=== PATIENT | female | born 1960 ===

== ENCOUNTER 2016-11-08 05:00 | Inpatient (IN) | payer OTHER ==
--- NOTE | 2016-11-08 05:38 | ED PDOC ---
HPI: General Adult Time Seen by Provider: 11/08/16 05:15 Chief Complaint (Nursing): Headache Chief Complaint (Provider): left-sided jaw pain History Per: Patient History/Exam Limitations: no limitations Onset/Duration Of Symptoms: Hrs (15) Current Symptoms Are (Timing): Still Present Additional History Per: Patient Additional Complaint(s): 56 y/o female with multiple medical problems presents with left-sided jaw pain x 15 hours. Patient states she was sleeping, and when she yawned she felt a "crack" to left jaw in front of left ear, and since then has had pain to left jaw, with associated swelling. Patient also notes throat pain when swallowing. Denies fever, headache, extremity new extremity numbness/weakness, left ear pain /drainage, cough, congestion, chest pain, shortness of breath, palpitations. Past Medical History Reviewed: Historical Data, Nursing Documentation, Vital Signs Vital Signs: Last Vital Signs Temp 98.5 F 11/12/16 17:00 Pulse 69 11/12/16 17:00 Resp 20 11/12/16 17:00 BP 115/76 11/12/16 17:00 Pulse Ox 99 11/12/16 17:00 - Medical History PMH: Anxiety, Arthritis (knee,neck,fingers), Asthma, Bipolar Disorder, Bronchitis (4x), CAD, CVA, Depression, Gastritis, HTN, Hypercholesterolemia, Hyperlipidemia, Hypothyroidism, Multiple Sclerosis (off meds 1 1/2 yrs), Pneumonia, Schizophrenia, Seizures (off meds 1 1/2 yrs) Denies: HIV, Chronic Kidney Disease - Surgical History Surgical History: CABG (x5 in 10/2015), Coronary Stent (left circumflex), Pacemaker - Family History Family History: States: Unknown Family Hx, CAD, Hypertension - Immunization History Hx Tetanus Toxoid Vaccination: Yes Hx Influenza Vaccination: No Hx Pneumococcal Vaccination: No - Home Medications Home Medications: Ambulatory Orders Medication Instructions Recorded Levothyroxine [Synthroid] 175 mcg PO DAILY 08/13/15 Ferrous Sulfate [Feosol] 325 mg PO DAILY 11/22/15 Atorvastatin [Lipitor] 80 mg PO QPM 12/01/15 Pantoprazole Sodium [Protonix] 40 mg PO DAILY PRN 12/01/15 Famotidine [Pepcid] 20 mg PO DAILY 11/08/16 Lisinopril [Prinivil] 5 mg PO DAILY 11/08/16 Metoprolol Tartrate [Lopressor] 25 mg PO DAILY 11/08/16 Nortriptyline HCl [Pamelor] 25 mg PO DAILY 11/08/16 Potassium Chloride 10 meq PO DAILY 11/08/16 Potassium Chloride [K-Dur 20 mEq 40 meq PO DAILY tab 11/12/16 ER Tab] Warfarin [Coumadin] 4 mg PO QD5 tab 11/12/16 - Allergies Allergies/Adverse Reactions: Allergies Allergy/AdvReac Type Severity Reaction Status Date / Time No Known Allergies Allergy Verified 05/09/16 01:51 Review of Systems ROS Statement: Except As Marked, All Systems Reviewed And Found Negative ENT: Positive for: Mouth Pain (left jaw pain) Physical Exam - Reviewed Nursing Documentation Reviewed: Yes Vital Signs Reviewed: Yes - Physical Exam Appears: Positive for: Well, Non-toxic, Uncomfortable (crying; but speaking in full sentence) Head Exam: Positive for: ATRAUMATIC, NORMAL INSPECTION, NORMOCEPHALIC Skin: Positive for: Normal Color Eye Exam: Positive for: Normal appearance ENT: Positive for: TM Is/Are (clear TM's and EAC's b/l. ), Other (examination of pharynx slightly limited as patient unable to fully open mouth due to pain. Contusion noted to palate. Tender to palpate left mandible with mild swelling noted.). Negative for: Nasal Congestion Cardiovascular/Chest: Positive for: Regular Rate, Rhythm Respiratory: Positive for: Normal Breath Sounds Gastrointestinal/Abdominal: Positive for: Normal Exam Extremity: Positive for: Normal ROM (left-sided weakness (from CVA 04/2016)) Neurologic/Psych: Positive for: Alert, Oriented - Laboratory Results Result Diagrams: 11/12/16 05:25 11/12/16 05:25 - ECG O2 Sat by Pulse Oximetry: 99 - Progress ED Course And Treament: labs, CT mandible with IV contrast, IV morphine ordered Disposition - Clinical Impression Clinical Impression: Mandibular pain - Disposition Disposition: Transfer of Care Disposition Time: 06:00 Condition: STABLE Patient Signed Over To: Gregorio Storm Handoff Comments: pending labs, CT, re-eval
--- NOTE | 2016-11-08 05:55 | ED PDOC ---
- Laboratory Results Result Diagrams: 11/08/16 05:50 11/08/16 05:50 - ECG O2 Sat by Pulse Oximetry: 99 Medical Decision Making Medical Decision Makin Patient signed out to me from MARIUSZ Oneill pending CT and labs. Scribe Attestation: Documented by Jemma Perez acting as a scribe for Gregorio Storm MD. Scribe Attestation: All medical record entries made by the Scribe were at my direction and personally dictated by me. I have reviewed the chart and agree that the record accurately reflects my personal performance of the history, physical exam, medical decision making, and the department course for this patient. I have also personally directed, reviewed, and agree with the discharge instructions and disposition. Disposition - Clinical Impression Clinical Impression: Mandibular pain - POA Present On Arrival: None - Disposition Referrals: Simba Cloud MD [Primary Care Provider] - Disposition: Transfer of Care Disposition Time: 07:00 Patient Signed Over To: José Kumar III Handoff Comments: Pending CT
[2016-11-08 06:23] LABS: BASO % 0.6 % (0.0-2.0); EOS % 0.6 % (0.0-4.0); HEMATOCRIT 39.6 % (34.0-47.0); LYMPH # 1.7 K/uL (1.0-4.3); LYMPH % 22.7 % (20.0-40.0); MEAN CELL VOLUME 89.6 fl (81.0-99.0); MEAN CORPUSCULAR HGB CONC 33.5 g/dL (33.0-37.0); MEAN PLATELET VOLUME 8.7 fl (7.2-11.7); MONO # 0.4 K/uL (0.0-0.8); MONO % 5.4 % (0.0-10.0); NEUT # 5.4 K/uL (1.8-7.0); NEUT % 70.7 % (50.0-75.0); RED CELL DISTRIBUTION WIDTH 13.6 % (11.5-14.5); WHITE BLOOD COUNT 7.6 K/uL (4.8-10.8)
[2016-11-08 06:26] LABS: BLOOD UREA NITROGEN 11 mg/dl (7-17); CALCIUM 10.2 mg/dL (8.4-10.2); CARBON DIOXIDE 26 mmol/L (22-30); CHLORIDE 103 mmol/L (98-107); GFR AFRICAN-AMERICAN > 60; GLUCOSE,RANDOM 137 mg/dL (65-105); POTASSIUM 3.9 MMOL/L (3.6-5.0); SODIUM 140 mmol/l (132-148)
[2016-11-08 06:48] LABS: PARTIAL THROMBOPLASTIN TIME 142.7 Seconds (25.6-37.1)
[2016-11-08] MEDS ORDERED: Dexamethasone 10 MG in Sodium Chloride 0.9% 50 ML IV ONE (06:50)
--- NOTE | 2016-11-08 07:16 | ED PDOC ---
- Laboratory Results Result Diagrams: 11/12/16 05:25 11/12/16 05:25 - ECG O2 Sat by Pulse Oximetry: 99 (RA) Pulse Ox Interpretation: Normal - Critical Care Total Time (In Min): 35 Medical Decision Making Medical Decision Making: Time: 07:00 --Patient was endorsed from Dr. Storm to me. --Pending imagining and disposition. Time: 07:12 --Head CT Scan --Maxillofacial w/ contrast CT Time: 08:57 --Head CT FINDINGS: HEMORRHAGE: No intracranial hemorrhage. BRAIN: There is an encephalomalacia in the right anterior parietal lobe, anterior limb of internal capsule and basal ganglia with Valium loss and ex vacuo dilatation of the right lateral ventricle. There is no mass, mass effect or abnormal extra- axial fluid collection. There is Wallerian degeneration of the right pyramidal tract. VENTRICLES: No hydrocephalus. CALVARIUM: The skull base and calvarium are normal. PARANASAL SINUSES: Mild mucosal thickening in the maxillary sinuses, otherwise predominantly clear. MASTOID AIR CELLS: Predominantly clear. OTHER FINDINGS: None. IMPRESSION: No acute intracranial abnormality. Encephalomalacia in the right anterior parietal lobe, anterior limb of internal capsule and basal ganglia, sequela of remote right MCA territory infarction. Time: 09:25 --Maxillofacial CT FINDINGS: There is enlargement of the palatine and lingual tonsils, worse on the left. There is also abnormal soft tissue in the left peritonsillar space and parapharyngeal space with mass effect on the left lateral pharyngeal wall and mild narrowing of the oropharyngeal airway. Abnormal soft tissue also extends into the left retropharyngeal space and deep parotid space. There is no drainable fluid collection. There is asymmetric enlargement and increased density in the left parotid gland with inflammatory stranding in the surrounding fat. There is also mild asymmetric enlargement and enhancement of the left submandibular gland. There is also asymmetric thickening of the left platysma. There is soft tissue swelling and subcutaneous fat stranding overlying the left parotid gland. The right parotid gland is normal in size, attenuation on appearance. With There is reactive enlargement of the visualized left cervical chain lymph nodes. NASAL BONES: Unremarkable. ORBITS: Both globes are normal in appearance. No intraorbital or retro-orbital abnormality. The bony orbits are normal. PARANASAL SINUSES/ MASTOIDS: There is mild polypoid mucosal thickening in the maxillary sinuses. Otherwise predominantly clear. MAXILLA: Normal in appearance caps. MANDIBLE/ TEMPOROMANDIBULAR JOINTS: Unremarkable. SKULL BASE: Unremarkable. TEMPORAL BONES: Middle ears and mastoid grossly unremarkable. OTHER FINDINGS: None. IMPRESSION: Findings are consistent with left tonsillitis and abnormal soft-tissue/phlegmon in the left peritonsillar, parapharyngeal, left retropharyngeal and left deep parotid space with mass effect on the left lateral pharyngeal wall and mild narrowing of the oropharyngeal airway. No evidence of airway obstruction. No evidence of drainable fluid collection. Also noted is reactive left submandibular and parotid sialoadenitis and left facial cellulitis. Reactive enlargement of the left cervical lymph nodes. Time: :44 --Phytonadione 5 mg IV --Request for consult with Dr. Sharpe. Time: : --Zosyn 4.5 GM IVPB Time: :54 --Admit to hospital routine: Inpatient in telemetry for coumadin toxicity, retropharyngeal bleeding with airway narrowing after consult under the care of Dr. Simba Cloud MD Time: 09:57 --Type and Screen Time: 10:04 --Hematology Oncology consult with Dr. Ciro Laureano MD for coumadin toxicity with possible ENT bleed, rec Vit K and FFP, no KCentra for now. --Otolaryngology consult with Dr. Андрей Sharpe MD for coumadin toxicity with retropharyngeal swelling Time: 10:05 --Frozen Plasma Time: 10:15 --Phytonadione 5 mg IV Scribe Attestation: Documented by Cristin Bee, acting as a scribe for José Kumar MD. Provider Scribe Attestation: All medical record entries made by the Scribe were at my direction and personally dictated by me. I have reviewed the chart and agree that the record accurately reflects my personal performance of the history, physical exam, medical decision making, and the department course for this patient. I have also personally directed, reviewed, and agree with the discharge instructions and disposition. Disposition Counseled Patient/Family Regarding: Studies Performed, Diagnosis - Clinical Impression Clinical Impression: Mandibular pain, Coumadin toxicity, Pharyngeal edema - POA Present On Arrival: None - Disposition Disposition: Admitted as In-Patient (Inpatient/Telemetry) Disposition Time: 09:54 Condition: STABLE
[2016-11-08] MEDS ORDERED: Sodium Chloride 0.9% 50 ML IV ONE (07:41)
[2016-11-08] MEDS ORDERED: Iohexol 300 100 ML IJ ONE (07:42)
--- NOTE | 2016-11-08 08:59 | CT ---
PROCEDURE: CT HEAD WITHOUT CONTRAST. HISTORY: headache, L temporal pain, coumadin toxicity COMPARISON: 05/09/2016. TECHNIQUE: Axial computed tomography images were obtained through the head/brain without intravenous contrast. Radiation dose: Total exam DLP = 885.22 mGy-cm. This CT exam was performed using one or more of the following dose reduction techniques: Automated exposure control, adjustment of the mA and/or kV according to patient size, and/or use of iterative reconstruction technique. FINDINGS: HEMORRHAGE: No intracranial hemorrhage. BRAIN: There is an encephalomalacia in the right anterior parietal lobe, anterior limb of internal capsule and basal ganglia with Valium loss and ex vacuo dilatation of the right lateral ventricle. There is no mass, mass effect or abnormal extra-axial fluid collection. There is Wallerian degeneration of the right pyramidal tract. VENTRICLES: No hydrocephalus. CALVARIUM: The skull base and calvarium are normal. PARANASAL SINUSES: Mild mucosal thickening in the maxillary sinuses, otherwise predominantly clear. MASTOID AIR CELLS: Predominantly clear. OTHER FINDINGS: None. IMPRESSION: No acute intracranial abnormality. Encephalomalacia in the right anterior parietal lobe, anterior limb of internal capsule and basal ganglia, sequela of remote right MCA territory infarction.
--- NOTE | 2016-11-08 09:27 | CT ---
PROCEDURE: CT MAXILLOFACIAL BONES WITH CONTRAST HISTORY: L jaw and facial pain COMPARISON: None. TECHNIQUE: Contiguous axial CT images of the maxillofacial bones were obtained following administration of IV contrast. Coronal and sagittal reformats were generated. Intravenous contrast Dose: 95 mL Omnipaque 300 Radiation dose: Total exam DLP = 838.53 mGy-cm. This CT exam was performed using one or more of the following dose reduction techniques: Automated exposure control, adjustment of the mA and/or kV according to patient size, and/or use of iterative reconstruction technique. FINDINGS: There is enlargement of the palatine and lingual tonsils, worse on the left. There is also abnormal soft tissue in the left peritonsillar space and parapharyngeal space with mass effect on the left lateral pharyngeal wall and mild narrowing of the oropharyngeal airway. Abnormal soft tissue also extends into the left retropharyngeal space and deep parotid space. There is no drainable fluid collection. There is asymmetric enlargement and increased density in the left parotid gland with inflammatory stranding in the surrounding fat. There is also mild asymmetric enlargement and enhancement of the left submandibular gland. There is also asymmetric thickening of the left platysma. There is soft tissue swelling and subcutaneous fat stranding overlying the left parotid gland. The right parotid gland is normal in size, attenuation on appearance. With There is reactive enlargement of the visualized left cervical chain lymph nodes. NASAL BONES: Unremarkable. ORBITS: Both globes are normal in appearance. No intraorbital or retro-orbital abnormality. The bony orbits are normal. PARANASAL SINUSES/ MASTOIDS: There is mild polypoid mucosal thickening in the maxillary sinuses. Otherwise predominantly clear. MAXILLA: Normal in appearance caps. MANDIBLE/ TEMPOROMANDIBULAR JOINTS: Unremarkable. SKULL BASE: Unremarkable. TEMPORAL BONES: Middle ears and mastoid grossly unremarkable. OTHER FINDINGS: None. IMPRESSION: Findings are consistent with left tonsillitis and abnormal soft-tissue/phlegmon in the left peritonsillar, parapharyngeal, left retropharyngeal and left deep parotid space with mass effect on the left lateral pharyngeal wall and mild narrowing of the oropharyngeal airway. No evidence of airway obstruction. No evidence of drainable fluid collection. Also noted is reactive left submandibular and parotid sialoadenitis and left facial cellulitis. Reactive enlargement of the left cervical lymph nodes.
[2016-11-08] MEDS ORDERED: Phytonadione 10 mg/ml Inj (Adult) IV ONE (09:44)
[2016-11-08] MEDS ORDERED: Piperacillin/Tazobact 4.5 GM in Sodium Chloride 0.9% 100 ML IVPB STA (09:52)
[2016-11-08] MEDS ORDERED: Phytonadione 5 MG in Sodium Chloride 0.9% 50 ML IV ONE (10:15)
[2016-11-08] MEDS ORDERED: Pantoprazole 40 mg EC Tab PO PRN (12:02)
--- NOTE | 2016-11-08 12:03 | CP.PCM.HP ---
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 Swelling and pain worsened and this prompted ED visit. She states she did not sustain trauma to the area, no recent dental procedures. Pain is severe /10. She takes 5 mg of Coumadin daily, dose was not changed recently. Last blood work was approximately a month ago in [place]. She has multiple bruises noted on legs, that appeared 2 days ago, denies trauma. She began to cry during the interview with the principal technical writer. Admits she has been crying a lot lately, has loss of appetite, no interest or motivation to do things, suicidal ideations with no plan or intent to do harm herself or others. Previously saw Dr. Denney (psychiatry) but has not taken medication in some time. Patient admits she has been very affected emotionally since her CVA, it has taken her independence and this is causing a great amount of emotional distress. She lives with her who helps her with her daily activities. She used to work and is now unable to do so. Past medical history: HTN, CVA with L hemiplegia, CAD s/p CABG and aortic valve replacement, Bipolar disorder, hypothyroidism Past surgical history: breast lesions removed. benign as per patient, CABG, aortic valve replacement, hysterectomy for fibroids Allergies: NKA Medications: reviewed Present on Admission - Present on Admission Any Indicators Present on Admission: No Review of Systems - Constitutional Constitutional: absent: Chills, Fever - EENT Eyes: absent: Blurred Vision Nose/Mouth/Throat: Facial Pain (left lateral cheek, patient declined inspection of throat due to pain). absent: Nasal Congestion, Nasal Discharge, Nasal Trauma - Breasts Breasts: absent: Mass, Pain, Nipple Discharge - Cardiovascular Cardiovascular: absent: Chest Pain, Dyspnea, Pedal Edema - Respiratory Respiratory: absent: Cough, Dyspnea - Gastrointestinal Gastrointestinal: absent: Abdominal Pain, Diarrhea, Hematemesis, Hematochezia, Melena, Nausea - Genitourinary Genitourinary: absent: Change in Urinary Stream, Difficulty Urinating - Integumentary Integumentary: Swelling (left side of face), Unusual Bruising (bruises noted on right lower extremity ). absent: Dry Skin, Pruritus, Rash, Skin Ulcer - Hematologic/Lymphatic Hematologic: Easy Bruising Past Patient History - Infectious Disease Hx of Infectious Diseases: None - Tetanus Immunizations Tetanus Immunization: Unknown - Past Medical History & Family History Past Medical History?: Yes - Past Social History Smoking Status: Former Smoker - CARDIAC Hx Hypercholesterolemia: Yes Hx Hypertension: Yes Hx Pacemaker: Yes - PULMONARY Hx Asthma: Yes Hx Bronchitis: Yes (4x) Hx Pneumonia: Yes - NEUROLOGICAL Hx Multiple Sclerosis: Yes (off meds 1 1/2 yrs) Hx Seizures: Yes (off meds 1 1/2 yrs) - HEENT Hx HEENT Problems: No - RENAL Hx Chronic Kidney Disease: No - ENDOCRINE/METABOLIC Hx Hypothyroidism: Yes - HEMATOLOGICAL/ONCOLOGICAL Hx Human Immunodeficiency Virus (HIV): No - INTEGUMENTARY Hx Dermatological Problems: (Eczema) - MUSCULOSKELETAL/RHEUMATOLOGICAL Hx Arthritis: Yes (knee,neck,fingers) - GASTROINTESTINAL Hx Gastritis: Yes - GENITOURINARY/GYNECOLOGICAL Hx Genitourinary Disorders: No - PSYCHIATRIC Hx Anxiety: Yes Hx Bipolar Disorder: Yes Hx Depression: Yes Hx Schizophrenia: Yes - SURGICAL HISTORY Hx Coronary Artery Bypass Graft: Yes (x5 in 10/2015) Hx Coronary Stent: Yes (left circumflex) - ANESTHESIA Hx Anesthesia: Yes Hx Anesthesia Reactions: No Hx Malignant Hyperthermia: No Meds Allergies/Adverse Reactions: Allergies Allergy/AdvReac Type Severity Reaction Status Date / Time No Known Allergies Allergy Verified 05/09/16 01:51 Physical Exam - Constitutional Appears: In Acute Distress (secondary to pain, anxious ), Older Than Stated Age - Head Exam Head Exam: NORMOCEPHALIC - Eye Exam Eye Exam: Normal appearance Pupil Exam: NORMAL ACCOMODATION - ENT Exam ENT Exam: Mucous Membranes Moist - Respiratory Exam Respiratory Exam: Clear to Auscultation Bilateral, NORMAL BREATHING PATTERN - Cardiovascular Exam Cardiovascular Exam: REGULAR RHYTHM, +S1, +S2 - GI/Abdominal Exam GI & Abdominal Exam: Normal Bowel Sounds, Soft. absent: Tenderness - Rectal Exam Rectal Exam: Deferred - Neurological Exam Neurological exam: Alert, CN II-XII Intact, Motor Sensory Deficit, Oriented x3 - Psychiatric Exam Psychiatric exam: Anxious, Depressed - Skin Skin Exam: Dry, Intact Additional comments: ecchymosis x 2 on right leg Results - Vital Signs Recent Vital Signs: Last Vital Signs Temp 99 F 11/08/16 05:16 Pulse 77 11/08/16 05:16 Resp 16 11/08/16 05:16 BP 188/82 H 11/08/16 05:16 Pulse Ox 99 11/08/16 10:21 - Labs Result Diagrams: 11/08/16 05:50 11/08/16 05:50 Labs: Laboratory Results - last 24 hr 11/08/16 10:49 Blood Type O POSITIVE Antibody Screen Negative BBK History Checked Patient has bt Assessment & Plan (1) Coumadin toxicity Assessment and Plan: 56 year old female 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 Given Vitamin K in ED. maxillofacial and head CT reviewed by me. Patient is hemodynamically stable, BP improved with administration of home medications. Hematology/Oncology consult: Dr. Laureano,recommendations appreciated. will 2 units of FFP. ENT: Dr. Sharpe, evaluated patient, zosyn given. Patient was evaluated by finance intern. INR 17.9, pending repeat at 16:00 Monitor Coags closely. if remains elevated consider addition doses of FFP, possibly KCentra NPO for now. IVF Status: Acute (2) Coagulopathy Assessment and Plan: secondary to coumadin toxicity -management as above Status: Acute (3) HTN (hypertension) Assessment and Plan: controlled with home medications, hx of cva. -lisinopril 5mg/lopressor 25mg -lipitor 80mg Status: Chronic (4) Hypothyroid Assessment and Plan: c/w home Synthroid 175mg Status: Chronic (5) DVT prophylaxis Assessment and Plan: SCDs, coumadin toxicity Status: Acute <Simab Cloud - Last Filed: 11/09/16 07:05> Results - Vital Signs Recent Vital Signs: Last Vital Signs Temp 98.1 F 11/09/16 04:58 Pulse 56 L 11/09/16 04:58 Resp 18 11/09/16 04:58 BP 103/63 11/09/16 04:58 Pulse Ox 97 11/09/16 04:58 - Labs Result Diagrams: 11/08/16 05:50 11/08/16 05:50 Labs: Laboratory Results - last 24 hr 11/08/16 11/08/16 10:49 18:11 PT 13.6 H D INR 1.3 H D APTT 34.0 D Blood Type O POSITIVE Antibody Screen Negative BBK History Checked Patient has bt Attending/Attestation - Attestation I have personally seen and examined this patient.: Yes I have fully participated in the care of the patient.: Yes I have reviewed all pertinent clinical information: Yes
[2016-11-08] MEDS: Lactated Ringer's 1,000 ML IV SCH (13:31)
--- NOTE | 2016-11-08 14:12 | CP.PCM.CON ---
History of Present Illness - History of Present Illness History of Present Illness: Covering Dr. Beatrice Neal 56 year old female with a history of HTN, CVA, CAD s/p CABG and aortic valve replacement on coumadin, admitted with left facial swelling and pain, found to have couagulopathy secondary for coumadin toxicity and concern for subcutaneous oropharyngeal bleeding. The patient reports to her jaw popping when yawning which led to swelling of the left side of her face and throat. She began to experience worsening swelling and pain which prompted her to come to the ER. In the ER her PT/PTT were prolonged with an INR of 17. She is s/p vit K IV and scheduled to receive 2U FFP. Past medical history: HTN, CVA, CAD s/p CABG and aortic valce replacement. Past surgical history: CABG, aortic valve replacement, hysterectomy for fibroids Family history: Mother had a brain tumor Social history: Smokes 1/2ppd x 40 years, denies alcohol and illicit drug use. Allergies: NKA Review of systems: All remaining review of systems including HEENT, cardiovascular, respiratory, gastrointestinal, genitourinary, musculoskeletal, dermatologic, neurologic, and psychiatric are negative unless mentioned in the HPI. Past Patient History - Infectious Disease Hx of Infectious Diseases: None - Tetanus Immunizations Tetanus Immunization: Unknown - Past Medical History & Family History Past Medical History?: Yes - Past Social History Smoking Status: Former Smoker - CARDIAC Hx Hypercholesterolemia: Yes Hx Hypertension: Yes Hx Pacemaker: Yes - PULMONARY Hx Asthma: Yes Hx Bronchitis: Yes (4x) Hx Pneumonia: Yes - NEUROLOGICAL Hx Multiple Sclerosis: Yes (off meds 1 1/2 yrs) Hx Seizures: Yes (off meds 1 1/2 yrs) - HEENT Hx HEENT Problems: No - RENAL Hx Chronic Kidney Disease: No - ENDOCRINE/METABOLIC Hx Hypothyroidism: Yes - HEMATOLOGICAL/ONCOLOGICAL Hx Human Immunodeficiency Virus (HIV): No - INTEGUMENTARY Hx Dermatological Problems: (Eczema) - MUSCULOSKELETAL/RHEUMATOLOGICAL Hx Arthritis: Yes (knee,neck,fingers) - GASTROINTESTINAL Hx Gastritis: Yes - GENITOURINARY/GYNECOLOGICAL Hx Genitourinary Disorders: No - PSYCHIATRIC Hx Anxiety: Yes Hx Bipolar Disorder: Yes Hx Depression: Yes Hx Schizophrenia: Yes - SURGICAL HISTORY Hx Coronary Artery Bypass Graft: Yes (x5 in 10/2015) Hx Coronary Stent: Yes (left circumflex) - ANESTHESIA Hx Anesthesia: Yes Hx Anesthesia Reactions: No Hx Malignant Hyperthermia: No Meds Allergies/Adverse Reactions: Allergies Allergy/AdvReac Type Severity Reaction Status Date / Time No Known Allergies Allergy Verified 05/09/16 01:51 - Medications Medications: Current Medications Atorvastatin Calcium (Lipitor) 80 mg PO QPM [facility] Famotidine (Pepcid) 20 mg PO DAILY [facility] Ferrous Sulfate (Feosol) 325 mg PO DAILY [facility] Lactated Ringer's (Lactated Ringer's) 1,000 mls @ 80 mls/hr IV .[id number] [facility]LE[facility] Last Admin: 11/08/16 13:31 Dose: 80 mls/hr Levothyroxine Sodium (Synthroid) 175 mcg PO DAILY@0630 [facility] Lisinopril (Zestril) 5 mg PO DAILY [facility] Metoprolol Tartrate (Lopressor) 25 mg PO DAILY [facility] Morphine Sulfate (Morphine) 2 mg IVP Q4 PRN PRN Reason: Pain, severe (8-10) Last Admin: 11/08/16 13:28 Dose: 2 mg Morphine Sulfate (Morphine) 1 mg IVP Q4 PRN PRN Reason: Pain, moderate (4-7) Nortriptyline HCl (Pamelor) 25 mg PO DAILY [facility] Pantoprazole Sodium (Protonix Ec Tab) 40 mg PO DAILY PRN PRN Reason: Heartburn Physical Exam - Head Exam Head Exam: ATRAUMATIC - Eye Exam Eye Exam: Normal appearance - ENT Exam ENT Exam: Mucous Membranes Dry - Neck Exam Additional comments: left sided swelling - Respiratory Exam Respiratory Exam: NORMAL BREATHING PATTERN - Cardiovascular Exam Cardiovascular Exam: +S1, +S2 - GI/Abdominal Exam GI & Abdominal Exam: Normal Bowel Sounds - Extremities Exam Extremities exam: Positive for: normal inspection - Neurological Exam Neurological exam: Oriented x3 - Psychiatric Exam Psychiatric exam: Normal Affect, Normal Mood - Skin Skin Exam: Warm Results - Vital Signs Recent Vital Signs: Last Vital Signs Temp 99.6 F 11/08/16 12:10 Pulse 71 11/08/16 12:10 Resp 18 11/08/16 12:10 BP 171/96 H 11/08/16 12:10 Pulse Ox 97 11/08/16 12:10 - Labs Result Diagrams: 11/08/16 05:50 11/08/16 05:50 Labs: Laboratory Results - last 24 hr 11/08/16 10:49 Blood Type O POSITIVE Antibody Screen Negative BBK History Checked Patient has bt Assessment & Plan (1) Coumadin toxicity Assessment and Plan: with concern for subcutaneous bleeding s/p Vit K IV and to receive 2U FFP coumadin on hold for now but will need to resume anticoagulation given her aortic valve when bleeding resolves; goal INR 2.5-3.5 ENT evaluation Status: Acute (2) Coagulopathy Assessment and Plan: secondary to anticoagulation s/p vit k and FFP Thank you for this interesting consult. Status: Acute
--- NOTE | 2016-11-08 16:00 | CP.CCUPN ---
CCU Subjective - Physician Review Events Since Last Encounter (Free Text): 11/08/16 17:44 The Patient was seen and examined at the bedside, Medical records reviewed, and management issues were discussed and formulated with the house staff. I have reviewed all the relevant clinical, laboratory, hemodynamic, radiographic data and medications I was asked to evaluated for supratherapeutic INR with signs of hemorrhage, 56 Y/O F with PMHx of HTN, HLD, Anxiety, Asthma, Bipolar Disorder, Bronchitis ( 4x), CAD, CVA, Depression, Gastritis, Hypothyroidism, Multiple Sclerosis (off meds 1 1/2 yrs), Pneumonia, Schizophrenia, Seizures (off meds 1 1/2 yrs) and knee/neck/fingers Arthritis Who presented to the ER with left-sided jaw pain x 15 hours. Patient states she was sleeping, and when she yawned she felt a "crack" to left jaw in front of left ear, and since then has had pain to left jaw, with associated swelling. Patient also notes throat pain when swallowing. Denies fever, headache, extremity new extremity numbness/weakness, left ear pain/drainage, cough, congestion, chest pain, shortness of breath, palpitations. She denies any form of bleeding, on examination there is no evidence of active bleeding except Contusion noted to soft palate, spencer to palpate left mandible with mild swelling noted. 11/08/16 17:45 --Head CT Scan --Maxillofacial w/ contrast CT Time: 08:57 --Head CT FINDINGS: HEMORRHAGE: No intracranial hemorrhage. BRAIN: There is an encephalomalacia in the right anterior parietal lobe, anterior limb of internal capsule and basal ganglia with Valium loss and ex vacuo dilatation of the right lateral ventricle. There is no mass, mass effect or abnormal extra- axial fluid collection. There is Wallerian degeneration of the right pyramidal tract. VENTRICLES: No hydrocephalus. CALVARIUM: The skull base and calvarium are normal. PARANASAL SINUSES: Mild mucosal thickening in the maxillary sinuses, otherwise predominantly clear. MASTOID AIR CELLS: Predominantly clear. OTHER FINDINGS: None. IMPRESSION: No acute intracranial abnormality. Encephalomalacia in the right anterior parietal lobe, anterior limb of internal capsule and basal ganglia, sequela of remote right MCA territory infarction. Time: 09:25 --Maxillofacial CT FINDINGS: There is enlargement of the palatine and lingual tonsils, worse on the left. There is also abnormal soft tissue in the left peritonsillar space and parapharyngeal space with mass effect on the left lateral pharyngeal wall and mild narrowing of the oropharyngeal airway. Abnormal soft tissue also extends into the left retropharyngeal space and deep parotid space. There is no drainable fluid collection. There is asymmetric enlargement and increased density in the left parotid gland with inflammatory stranding in the surrounding fat. There is also mild asymmetric enlargement and enhancement of the left submandibular gland. There is also asymmetric thickening of the left platysma. There is soft tissue swelling and subcutaneous fat stranding overlying the left parotid gland. The right parotid gland is normal in size, attenuation on appearance. With There is reactive enlargement of the visualized left cervical chain lymph nodes. NASAL BONES: Unremarkable. ORBITS: Both globes are normal in appearance. No intraorbital or retro-orbital abnormality. The bony orbits are normal. PARANASAL SINUSES/ MASTOIDS: There is mild polypoid mucosal thickening in the maxillary sinuses. Otherwise predominantly clear. MAXILLA: Normal in appearance caps. MANDIBLE/ TEMPOROMANDIBULAR JOINTS: Unremarkable. SKULL BASE: Unremarkable. TEMPORAL BONES: Middle ears and mastoid grossly unremarkable. OTHER FINDINGS: None. IMPRESSION: Findings are consistent with left tonsillitis and abnormal soft-tissue/phlegmon in the left peritonsillar, parapharyngeal, left retropharyngeal and left deep parotid space with mass effect on the left lateral pharyngeal wall and mild narrowing of the oropharyngeal airway. No evidence of airway obstruction. No evidence of drainable fluid collection. Also noted is reactive left submandibular and parotid sialoadenitis and left facial cellulitis. Reactive enlargement of the left cervical lymph nodes. CCU Objective - Vital Signs / Intake & Output Vital Signs (Last 4 hours): Vital Signs Temp Pulse Resp BP Pulse Ox 11/08/16 14:32 71 171/96 H 11/08/16 14:31 71 171/96 H 11/08/16 12:10 99.6 F 71 18 171/96 H 97 - Physical Exam Head: Positive for: Atraumatic, Normocephalic, Tenderness (left mandible ) Pupils: Positive for: PERRL. Negative for: Sluggish, Non-Reactive Extroacular Muscles: Positive for: EOMI. Negative for: Gaze Palsy, Entrapment Conjunctiva: Positive for: Normal. Negative for: Injected, Icteric Ears: Positive for: Normal, NORMAL TM, Normal Canal. Negative for: Erythema Mouth: Positive for: Moist Mucous Membranes, Normal Lips, Normal Tounge, Normal Teeth. Negative for: Drooling, Trismus Pharnyx: Positive for: ERYTHEMA (Contusion noted to soft palate. ). Negative for: EXUDATE, TONSILS ENLARGED, Peritonsilar Swelling, Uvular Deviation, Muffled /Hoarse Voice Nose (External): Positive for: Atraumatic. Negative for: Abrasion, Contusion, Laceration Nose (Internal): Positive for: Normal Inspection, No Active Bleeding Neck: Positive for: Normal Range of Motion, Trachea Midline. Negative for: Meningeal Signs, MIDLINE TENDERNESS, Paraspinal Tenderness, JVD, Lymphadenopathy , Bruit, Other Respiratory/Chest: Positive for: Clear to Auscultation, Good Air Exchange. Negative for: Respiratory Distress, Accessory Muscle Use Cardiovascular: Positive for: Regular Rate and Rhythm. Negative for: Murmurs, Normal S1, S2 Abdomen: Positive for: Normal Bowel Sounds. Negative for: Tenderness, Distention, Peritoneal Signs Neurological: Positive for: GCS=15, CN II-XII Intact, Normal Sensory Function Psychiatric: Positive for: Alert, Oriented x 3, Normal Insight, Normal Concentration, Normal Affect, Normal Mood - Medications Active Medications: Active Medications Generic Name Dose Route Start Last Admin Trade Name Freq PRN Reason Stop Dose Admin Atorvastatin Calcium 80 mg 11/09/16 18:00 Lipitor PO QPM [facility]LEEN Famotidine 20 mg 11/09/16 09:00 Pepcid PO DAILY [facility] Ferrous Sulfate 325 mg 11/09/16 09:00 Feosol PO DAILY [facility] Lactated Ringer's 1,000 mls @ 80 mls/hr 11/08/16 12:15 11/08/16 13:31 Lactated Ringer's IV 80 mls/hr .[id number] KATHLEEN Administration Levothyroxine Sodium 175 mcg 11/09/16 06:30 Synthroid PO DAILY@0630 [facility] Lisinopril 5 mg 11/08/16 14:08 11/08/16 14:32 Zestril PO 5 mg DAILY [facility] Administration Metoprolol Tartrate 25 mg 11/08/16 14:08 11/08/16 14:31 Lopressor PO 25 mg DAILY [facility] Administration Morphine Sulfate 2 mg 11/08/16 13:14 11/08/16 13:28 Morphine IVP 2 mg Q4 PRN Administration Pain, severe (8-10) Morphine Sulfate 1 mg 11/08/16 13:14 Morphine IVP Q4 PRN Pain, moderate (4-7) Nortriptyline HCl 25 mg 11/09/16 09:00 Pamelor PO DAILY [facility] Pantoprazole Sodium 40 mg 11/08/16 12:02 Protonix Ec Tab PO DAILY PRN Heartburn - Patient Studies Lab Studies: Lab Studies 11/08/16 Range/Units 10:49 Blood Type O POSITIVE Antibody Screen Negative BBK History Checked Patient has bt Laboratory Results - last 24 hr 11/08/16 10:49 Blood Type O POSITIVE Antibody Screen Negative BBK History Checked Patient has bt Review of Systems - Cardiovascular Cardiovascular: absent: As Per HPI, Acrocyanosis, Chest Pain, Chest Pain at Rest , Chest Pain with Activity, Claudication, Diaphoresis, Dyspnea, Dyspnea on Exertion, Edema, Irregular Heart Rhythm, Pain Radiating to Arm/Neck/Jaw, Leg Edema, Leg Ulcers, Lightheadedness, Orthopnea, Palpitations, Paroxysmal Nocturnal Dyspnea, Pedal Edema, Radiating Pain, Rapid Heart Rate, Slow Heart Rate, Syncope, Other, UNREMARKABLE - Respiratory Respiratory: absent: As Per HPI, Cough, Dyspnea, Hemoptysis, Dyspnea on Exertion , Wheezing, Snoring, Stridor, Pain on Inspiration, Chest Congestion, Excessive Mucous Production, Change in Mucous Color, Pain with Coughing, Other, UNREMARKABLE - Gastrointestinal Gastrointestinal: absent: As Per HPI, Abdominal Pain, Belching, Bloating, Change in Bowel Habits, Change in Stool Character, Coffee Ground Emesis, Constipation, Cramping, Diarrhea, Dyspepsia, Dysphagia, Early Satiety, Excessive Flatus, Fecal Incontinence, Heartburn, Hematemesis, Hematochezia, Loose Stools, Melena, Nausea, Odynophagia, Temesmus, Vomiting, Other, UNREMARKABLE Critical Care Progress Note - Extremities/Vascular Does the Patient have a Central Venous Catheter?: No Does the Patient need a Central Venous Catheter?: No Does the Patient have a Khalil Catheter?: No Does the Patient need a Khalil Catheter?: No - Nutrition Nutrition: Nutrition Category Date Time Status NPO Diet [DIET] Diets 11/08/16 Breakfast Active Assessment/Plan - Assessment and Plan (Free Text) Assessment: ICU evaluation for supratherapeutic INR Pt denies any form of bleeding, on examination there is no evidence of active bleeding except Contusion noted to soft palate, spencer to palpate left mandible with mild swelling noted. May admit to the telemetry Pt received Vit K and scheduled to receive FFP. At this time, patient is hemodynamic and respiratory status stable, airway patent with not compromise. Please get ENT consult for laryngoscopy and hematology evaluation Repeat Coagulation profile Please call ICU if any change in respiratory or hemodynamic changes, further increase of INR or any acute bleeding devolops
--- NOTE | 2016-11-08 16:52 | OP ---
PROCEDURE DATE: 11/08/2016 PREOPERATIVE DIAGNOSIS: Possible airway obstruction. POSTOPERATIVE DIAGNOSIS: Possible airway obstruction. PROCEDURE: Flexible laryngoscopy. SURGEON: Андрей Sharpe MD SIGNIFICANT FINDINGS: Fullness of the pharynx on the left. DESCRIPTION OF PROCEDURE: The patient was placed in seated position. A flexible laryngoscope was inserted into the nasal cavity, past the nasopharynx, oropharynx, and hypopharynx. The pharyngeal wall, base of tongue, vallecula, epiglottis, AE fold, false cords, true cords, and pyriform sinuses were brought into view. There was some fullness of the left pharyngeal wall. No airway obstruction. Vocal cords were mobile bilaterally. The scope was removed. The patient tolerated the procedure well. Андрей Sharpe MD MTDD
--- NOTE | 2016-11-08 20:02 | CP.PCM.PCO ---
<Shaheed Ryder - Last Filed: 11/08/16 20:00> Assessment and Plan - Assessment and Plan (Free Text) Assessment: called RN after vieweing latest INR 1.3. HOLD second unit FFP due to INR 1.3, patient needs target INR between 2.5-3.5 per heme/onc Britni PGY3 <María Joseph - Last Filed: 11/09/16 08:36> Physician Communication Note - Physician Communication Note Physician Communication Note: COMMUNICATION REVIEWED. WILL HOLD SECOND UNIT OF FFP WITH IMPROVED INR 1.3
[2016-11-09] MEDS: Lactated Ringer's 1,000 ML IV SCH ×2 (05:27→13:23)
[2016-11-09] MEDS: Levothyroxine 175 MCG TAB PO SCH (05:35)
[2016-11-09 06:58] LABS: ALB/GLOB RATIO 1.3 (1.0-2.1); ALKALINE PHOSPHATASE 78 U/L (38-126); ALT/SGPT 41 U/L (9-52); AST/SGOT 20 U/L (14-36); BILIRUBIN,TOTAL 0.9 mg/dl (0.2-1.3); BLOOD UREA NITROGEN 11 mg/dl (7-17); CARBON DIOXIDE 25 mmol/L (22-30); CHLORIDE 106 mmol/L (98-107); GFR AFRICAN-AMERICAN > 60; GLUCOSE,RANDOM 97 mg/dL (65-105); POTASSIUM 3.5 MMOL/L (3.6-5.0); SODIUM 142 mmol/l (132-148); TOTAL PROTEIN 6.6 G/DL (6.3-8.2)
[2016-11-09 07:05] LABS: PARTIAL THROMBOPLASTIN TIME 28.4 Seconds (25.6-37.1)
[2016-11-09 07:06] LABS: HEMATOCRIT 31.5 % (34.0-47.0); MEAN CELL VOLUME 89.6 fl (81.0-99.0); MEAN CORPUSCULAR HEMOGLOBIN 29.9 pg (27.0-31.0); MEAN CORPUSCULAR HGB CONC 33.4 g/dL (33.0-37.0); RED CELL DISTRIBUTION WIDTH 13.6 % (11.5-14.5); WHITE BLOOD COUNT 7.6 K/uL (4.8-10.8)
--- NOTE | 2016-11-09 08:50 | CP.PCM.PN ---
<Eduardo Perez - Last Filed: 11/09/16 13:22> Subjective - Date & Time of Evaluation Date of Evaluation: 11/09/16 Time of Evaluation: 07:15 - Subjective Subjective: Overnight events: INR 1.3. second unit of ffp held. Patient seen and examined bedside with Dr. Ellison. Patient still complaining of pain. She has new ecchymosis on left mandible. NPO until swallow eval. No other complaints offered. Continue IVF until clear for PO diet. Pain control with morphine prn. Case d/w Dr. Laureano, will restart anticoagulation with heparin now, monitor coags. Psychiatry to evaluate patient as well. Objective - Vital Signs/Intake and Output Vital Signs (last 24 hours): Temp Pulse Resp BP Pulse Ox 98.1 F 56 L 18 103/63 97 11/09/16 04:58 11/09/16 04:58 11/09/16 04:58 11/09/16 04:58 11/09/16 04:58 Intake and Output: 11/09/16 11/09/16 06:59 18:59 Intake Total 750 Balance 750 - Medications Medications: Current Medications Atorvastatin Calcium (Lipitor) 80 mg PO QPM [facility] Famotidine (Pepcid) 20 mg PO DAILY [facility] Ferrous Sulfate (Feosol) 325 mg PO DAILY [facility] Lactated Ringer's (Lactated Ringer's) 1,000 mls @ 80 mls/hr IV .[id number] [facility] Last Admin: 11/09/16 05:27 Dose: 80 mls/hr Levothyroxine Sodium (Synthroid) 175 mcg PO DAILY@0630 [facility] Last Admin: 11/09/16 05:35 Dose: 175 mcg Lisinopril (Zestril) 5 mg PO DAILY [facility] Last Admin: 11/08/16 14:32 Dose: 5 mg Metoprolol Tartrate (Lopressor) 25 mg PO DAILY [facility] Last Admin: 11/08/16 14:31 Dose: 25 mg Morphine Sulfate (Morphine) 2 mg IVP Q4 PRN PRN Reason: Pain, severe (8-10) Last Admin: 11/09/16 05:21 Dose: 2 mg Morphine Sulfate (Morphine) 1 mg IVP Q4 PRN PRN Reason: Pain, moderate (4-7) Nortriptyline HCl (Pamelor) 25 mg PO DAILY [facility] Pantoprazole Sodium (Protonix Ec Tab) 40 mg PO DAILY PRN PRN Reason: Heartburn - Labs Labs: 11/09/16 05:40 11/09/16 05:40 PT 12.2 Seconds (9.8-13.1) 11/09/16 05:40 INR 1.2 (0.9-1.2) 11/09/16 05:40 APTT 28.4 Seconds (25.6-37.1) D 11/09/16 05:40 - Constitutional Appears: No Acute Distress - Head Exam Head Exam: NORMOCEPHALIC - Eye Exam Eye Exam: Normal appearance Pupil Exam: NORMAL ACCOMODATION - ENT Exam ENT Exam: Mucous Membranes Moist Additional comments: pain with opening of jaw, tenderness to palpation of left TMJ, ecchymosis noted on left mandible - Respiratory Exam Respiratory Exam: NORMAL BREATHING PATTERN. absent: Respiratory Distress - Cardiovascular Exam Cardiovascular Exam: +S1, +S2 - GI/Abdominal Exam GI & Abdominal Exam: Soft, Normal Bowel Sounds. absent: Tenderness - Extremities Exam Extremities Exam: absent: Pedal Edema, Tenderness - Neurological Exam Neurological Exam: Alert, Awake, Oriented x3 Neuro motor strength exam: Left Upper Extremity: 5, Left Lower Extremity: 0, Right Lower Extremity: 5 - Psychiatric Exam Psychiatric exam: Depressed - Skin Skin Exam: Dry, Intact Additional comments: ecchymosis of rle: appear same as yesterday. Assessment and Plan (1) Coagulopathy Assessment & Plan: secondary to coumadin toxicity, resolved. resume anticoag with heparin now with subtherapeutic INR Status: Acute (3) HTN (hypertension) Assessment & Plan: controlled with home medications, hx of cva. -lisinopril 5mg/lopressor 25mg -lipitor 80mg Status: Chronic (4) Hypothyroid Assessment & Plan: c/w home Synthroid 175mg Status: Chronic (6) Psychiatric diagnosis Assessment & Plan: patient reports hx of bipolar disorder, currently depressed. psych consult for evaluation Status: Acute (7) DVT prophylaxis Assessment & Plan: SCDs, start heparin Status: Acute <Simba Ellison - Last Filed: 11/14/16 07:02> Objective - Vital Signs/Intake and Output Vital Signs (last 24 hours): Temp Pulse Resp BP Pulse Ox 98.5 F 69 20 115/76 99 11/12/16 17:00 11/12/16 17:00 11/12/16 17:00 11/12/16 17:00 11/12/16 20:55 - Labs Labs: 11/12/16 05:25 11/12/16 05:25 PT 13.8 Seconds (9.8-13.1) H 11/12/16 05:25 INR 1.3 (0.9-1.2) H 11/12/16 05:25 APTT 41.9 Seconds (25.6-37.1) H D 11/10/16 06:00 Attending/Attestation - Attestation I have personally seen and examined this patient.: Yes I have fully participated in the care of the patient.: Yes I have reviewed all pertinent clinical information, including history, physical exam and plan: Yes
--- NOTE | 2016-11-09 11:00 | CP.PCM.PN ---
Subjective - Date & Time of Evaluation Date of Evaluation: 11/09/16 Time of Evaluation: 10:00 - Subjective Subjective: Has jaw/throat pain INR noted 1.2 Objective - Vital Signs/Intake and Output Vital Signs (last 24 hours): Temp Pulse Resp BP Pulse Ox 98.1 F 54 L 18 117/71 97 11/09/16 04:58 11/09/16 09:38 11/09/16 04:58 11/09/16 09:38 11/09/16 04:58 Intake and Output: 11/09/16 11/09/16 06:59 18:59 Intake Total 750 Balance 750 - Medications Medications: Current Medications Atorvastatin Calcium (Lipitor) 80 mg PO QPM [facility] Famotidine (Pepcid) 20 mg PO DAILY [facility] Last Admin: 11/09/16 09:37 Dose: 20 mg Ferrous Sulfate (Feosol) 325 mg PO DAILY [facility] Last Admin: 11/09/16 09:35 Dose: 325 mg Lactated Ringer's (Lactated Ringer's) 1,000 mls @ 80 mls/hr IV .[id number] [facility] Last Admin: 11/09/16 05:27 Dose: 80 mls/hr Levothyroxine Sodium (Synthroid) 175 mcg PO DAILY@0630 [facility] Last Admin: 11/09/16 05:35 Dose: 175 mcg Lisinopril (Zestril) 5 mg PO DAILY [facility] Last Admin: 11/09/16 09:38 Dose: 5 mg Metoprolol Tartrate (Lopressor) 25 mg PO DAILY [facility] Last Admin: 11/09/16 09:36 Dose: Not Given Morphine Sulfate (Morphine) 2 mg IVP Q4 PRN PRN Reason: Pain, severe (8-10) Last Admin: 11/09/16 05:21 Dose: 2 mg Morphine Sulfate (Morphine) 1 mg IVP Q4 PRN PRN Reason: Pain, moderate (4-7) Nortriptyline HCl (Pamelor) 25 mg PO DAILY [facility] Last Admin: 11/09/16 09:37 Dose: 25 mg Pantoprazole Sodium (Protonix Ec Tab) 40 mg PO DAILY PRN PRN Reason: Heartburn - Labs Labs: 11/09/16 05:40 11/09/16 05:40 PT 12.2 Seconds (9.8-13.1) 11/09/16 05:40 INR 1.2 (0.9-1.2) 11/09/16 05:40 APTT 28.4 Seconds (25.6-37.1) D 11/09/16 05:40 - Head Exam Head Exam: ATRAUMATIC - Eye Exam Eye Exam: Normal appearance - ENT Exam ENT Exam: Mucous Membranes Dry - Respiratory Exam Respiratory Exam: NORMAL BREATHING PATTERN - Cardiovascular Exam Cardiovascular Exam: +S1, +S2 - GI/Abdominal Exam GI & Abdominal Exam: Normal Bowel Sounds - Extremities Exam Extremities Exam: Normal Inspection - Neurological Exam Neurological Exam: Oriented x3 - Psychiatric Exam Psychiatric exam: Normal Affect, Normal Mood - Skin Skin Exam: Warm Assessment and Plan (1) Coumadin toxicity Assessment & Plan: resolved with Vit K and 1 unit FFP Okay to resume anticoagulation but will need close monitoring Recommend heparin/lovenox bridging with coumadin goal INR 2.5-3.5 Status: Acute (2) Coagulopathy Assessment & Plan: secondary to anticoagulation Status: Acute
[2016-11-09 12:18] VITALS: BMI 30.2
--- NOTE | 2016-11-09 13:42 | CP.PCM.CON ---
History of Present Illness - History of Present Illness History of Present Illness: psychiatry consult ordered by dr. trveizo reason depression cc: i'm depressed hpi: pt tearful throughout interview. she is here for medical complications and has history of a CVA. she reports she has a dx of bipolar disorder and has been off meds for years. able to name lithium, zoloft and seroquel as previous medications. reports previous admissions to psych hospital and previous overdose attempts. reports low mood, decreased energy, anhedonia, hopelessness, crying spells, poor concentration and impairment in attempting to sleep. she reports symptoms are worsening and she is now having passive suicidal thoughts- she has not formulated a plan and she denies intent. she denies psychotic symptoms currently, but has history of hearing voices. she is a poor historian secondary to her mood symptoms and is crying throughout the entire interview. she is willing to sign into a psychiatric unit to restart her meds and to keep her safe. past psych: as above- dx of bipolar. had seen dr. mosley in the past. social: states she lives with . reports medical stressors. abuse: unable to gather history due to lack of privacy substance abuse denies Past medical history: HTN, CVA with L hemiplegia, CAD s/p CABG and aortic valve replacement, Bipolar disorder, hypothyroidism Past surgical history: breast lesions removed. benign as per patient, CABG, aortic valve replacement, hysterectomy for fibroids mse: alert, oriented x 3. mood is depressed. affect is constricted and tearful. thoughts are organized. speech is soft. pt has suicidal thoughts, no plan and no intent. she denies any delusional thoughts and has no c/o a/v hallucinations. fair i/j. memory appears to be grossly intact. assessment: bipolar disorder, mre depressed recommendation: can sign into the step unit (based on her hx of cva and other medical needs) for treatment of her bipolar disorder when she is medically stabilized start seroquel 25mg hs tonight pt states she feels safe in the hospital and 1:1 for suicide prevention not indicated Past Patient History - Infectious Disease Hx of Infectious Diseases: None - Tetanus Immunizations Tetanus Immunization: Unknown - Past Medical History & Family History Past Medical History?: Yes - Past Social History Smoking Status: Former Smoker - CARDIAC Hx Hypercholesterolemia: Yes Hx Hypertension: Yes Hx Pacemaker: Yes - PULMONARY Hx Asthma: Yes Hx Bronchitis: Yes (4x) Hx Pneumonia: Yes - NEUROLOGICAL Hx Multiple Sclerosis: Yes (off meds 1 1/2 yrs) Hx Seizures: Yes (off meds 1 1/2 yrs) - HEENT Hx HEENT Problems: No - RENAL Hx Chronic Kidney Disease: No - ENDOCRINE/METABOLIC Hx Hypothyroidism: Yes - HEMATOLOGICAL/ONCOLOGICAL Hx Human Immunodeficiency Virus (HIV): No - INTEGUMENTARY Hx Dermatological Problems: (Eczema) - MUSCULOSKELETAL/RHEUMATOLOGICAL Hx Arthritis: Yes (knee,neck,fingers) - GASTROINTESTINAL Hx Gastritis: Yes - GENITOURINARY/GYNECOLOGICAL Hx Genitourinary Disorders: No - PSYCHIATRIC Hx Anxiety: Yes Hx Bipolar Disorder: Yes Hx Depression: Yes Hx Schizophrenia: Yes - SURGICAL HISTORY Hx Coronary Artery Bypass Graft: Yes (x5 in 10/2015) Hx Coronary Stent: Yes (left circumflex) - ANESTHESIA Hx Anesthesia: Yes Hx Anesthesia Reactions: No Hx Malignant Hyperthermia: No Meds Allergies/Adverse Reactions: Allergies Allergy/AdvReac Type Severity Reaction Status Date / Time No Known Allergies Allergy Verified 05/09/16 01:51 - Medications Medications: Current Medications Atorvastatin Calcium (Lipitor) 80 mg PO QPM [facility] Famotidine (Pepcid) 20 mg PO DAILY [facility] Last Admin: 11/09/16 09:37 Dose: 20 mg Ferrous Sulfate (Feosol) 325 mg PO DAILY [facility] Last Admin: 11/09/16 09:35 Dose: 325 mg Heparin Sodium (Porcine) (Heparin) 5,000 units SC Q8 [facility] PRN Reason: Protocol Lactated Ringer's (Lactated Ringer's) 1,000 mls @ 80 mls/hr IV .[id number] [facility] Last Admin: 11/09/16 13:23 Dose: 80 mls/hr Levothyroxine Sodium (Synthroid) 175 mcg PO DAILY@0630 [facility] Last Admin: 11/09/16 05:35 Dose: 175 mcg Lisinopril (Zestril) 5 mg PO DAILY [facility] Last Admin: 11/09/16 09:38 Dose: 5 mg Metoprolol Tartrate (Lopressor) 25 mg PO DAILY [facility] Last Admin: 11/09/16 09:36 Dose: Not Given Morphine Sulfate (Morphine) 2 mg IVP Q4 PRN PRN Reason: Pain, severe (8-10) Last Admin: 11/09/16 13:24 Dose: 2 mg Morphine Sulfate (Morphine) 1 mg IVP Q4 PRN PRN Reason: Pain, moderate (4-7) Nortriptyline HCl (Pamelor) 25 mg PO DAILY [facility] Last Admin: 11/09/16 09:37 Dose: 25 mg Pantoprazole Sodium (Protonix Ec Tab) 40 mg PO DAILY PRN PRN Reason: Heartburn Results - Vital Signs Recent Vital Signs: Last Vital Signs Temp 98.1 F 11/09/16 12:00 Pulse 52 L 11/09/16 12:00 Resp 18 11/09/16 12:00 BP 113/67 11/09/16 12:00 Pulse Ox 99 11/09/16 12:00 - Labs Result Diagrams: 11/09/16 05:40 11/09/16 05:40 Labs: Laboratory Results - last 24 hr 11/08/16 11/09/16 11/09/16 18:11 05:40 05:40 WBC 7.6 RBC 3.52 L Hgb 10.5 L D Hct 31.5 L MCV 89.6 MCH 29.9 MCHC 33.4 RDW 13.6 Plt Count 185 PT 13.6 H D 12.2 INR 1.3 H D 1.2 APTT 34.0 D 28.4 D Sodium Potassium Chloride Carbon Dioxide Anion Gap BUN Creatinine Est GFR ( Amer) Est GFR (Non-Af Amer) Random Glucose Calcium Total Bilirubin AST ALT Alkaline Phosphatase Total Protein Albumin Globulin Albumin/Globulin Ratio 11/09/16 05:40 WBC RBC Hgb Hct MCV MCH MCHC RDW Plt Count PT INR APTT Sodium 142 Potassium 3.5 L Chloride 106 Carbon Dioxide 25 Anion Gap 15 BUN 11 Creatinine 0.4 L Est GFR ( Amer) > 60 Est GFR (Non-Af Amer) > 60 Random Glucose 97 Calcium 10.0 Total Bilirubin 0.9 AST 20 ALT 41 Alkaline Phosphatase 78 Total Protein 6.6 Albumin 3.8 Globulin 2.9 Albumin/Globulin Ratio 1.3
[2016-11-09] MEDS: Enoxaparin 80 mg Syringe SC SCH (22:19)
[2016-11-10] MEDS: Levothyroxine 175 MCG TAB PO SCH (06:28)
[2016-11-10 07:50] LABS: MEAN CELL VOLUME 88.8 fl (81.0-99.0); MEAN CORPUSCULAR HEMOGLOBIN 30.7 pg (27.0-31.0); MEAN CORPUSCULAR HGB CONC 34.5 g/dL (33.0-37.0); RED CELL DISTRIBUTION WIDTH 13.5 % (11.5-14.5); WHITE BLOOD COUNT 5.7 K/uL (4.8-10.8)
[2016-11-10 07:58] LABS: PARTIAL THROMBOPLASTIN TIME 41.9 Seconds (25.6-37.1)
[2016-11-10 09:12] LABS: BLOOD UREA NITROGEN 10 mg/dl (7-17); CARBON DIOXIDE 27 mmol/L (22-30); CHLORIDE 105 mmol/L (98-107); GFR AFRICAN-AMERICAN > 60; GLUCOSE,RANDOM 101 mg/dL (65-105); POTASSIUM 3.2 MMOL/L (3.6-5.0); SODIUM 140 mmol/l (132-148)
[2016-11-10] MEDS: Enoxaparin 80 mg Syringe SC SCH ×2 (09:38→20:44)
--- NOTE | 2016-11-10 11:06 | CP.PCM.PN ---
<Eduardo Perez - Last Filed: 11/10/16 11:13> Subjective - Date & Time of Evaluation Date of Evaluation: 11/10/16 Time of Evaluation: 11:01 - Subjective Subjective: No acute overnight events. Patient seen and examined bedside with FM team. Feels better, continues to have pain and swelling but is improving. She is having difficulty opening her jaw due to pain. Will start soft diet and advance as tolerated. Psych input appreciated. Continue with present management. Patient is candidate for STEP unit. Will medically optimize before transfer. Objective - Vital Signs/Intake and Output Vital Signs (last 24 hours): Temp Pulse Resp BP Pulse Ox 98.3 F 56 L 20 113/65 96 11/10/16 08:00 11/10/16 10:41 11/10/16 08:00 11/10/16 10:41 11/10/16 08:00 Intake and Output: 11/10/16 11/10/16 06:59 18:59 Intake Total 1400 Output Total 0 Balance 1400 - Medications Medications: Current Medications Atorvastatin Calcium (Lipitor) 80 mg PO QPM [facility] Last Admin: 11/09/16 18:56 Dose: 80 mg Enoxaparin Sodium (Lovenox) 70 mg SC Q12 [facility] PRN Reason: Protocol Last Admin: 11/10/16 09:38 Dose: 70 mg Famotidine (Pepcid) 20 mg PO DAILY [facility] Last Admin: 11/10/16 10:39 Dose: 20 mg Ferrous Sulfate (Feosol) 325 mg PO DAILY [facility] Last Admin: 11/10/16 09:39 Dose: 325 mg Lactated Ringer's (Lactated Ringer's) 1,000 mls @ 80 mls/hr IV .[id number] [facility] Last Admin: 11/09/16 13:23 Dose: 80 mls/hr Levothyroxine Sodium (Synthroid) 175 mcg PO DAILY@0630 [facility] Last Admin: 11/10/16 06:28 Dose: 175 mcg Lisinopril (Zestril) 5 mg PO DAILY [facility] Last Admin: 11/10/16 09:42 Dose: 5 mg Metoprolol Tartrate (Lopressor) 25 mg PO DAILY [facility] Last Admin: 11/10/16 10:41 Dose: Not Given Morphine Sulfate (Morphine) 2 mg IVP Q4 PRN PRN Reason: Pain, severe (8-10) Last Admin: 11/10/16 04:58 Dose: 2 mg Morphine Sulfate (Morphine) 1 mg IVP Q4 PRN PRN Reason: Pain, moderate (4-7) Nortriptyline HCl (Pamelor) 25 mg PO DAILY [facility] Last Admin: 11/10/16 10:35 Dose: 25 mg Pantoprazole Sodium (Protonix Ec Tab) 40 mg PO DAILY PRN PRN Reason: Heartburn - Labs Labs: 11/10/16 06:00 11/10/16 06:00 PT 11.9 Seconds (9.8-13.1) 11/10/16 06:00 INR 1.2 (0.9-1.2) 11/10/16 06:00 APTT 41.9 Seconds (25.6-37.1) H D 11/10/16 06:00 - Constitutional Appears: Non-toxic - Eye Exam Eye Exam: Normal appearance - ENT Exam ENT Exam: Mucous Membranes Moist - Respiratory Exam Respiratory Exam: Clear to Ausculation Bilateral, NORMAL BREATHING PATTERN. absent: Rales, Rhonchi, Wheezes - Cardiovascular Exam Cardiovascular Exam: REGULAR RHYTHM, +S1, +S2 - GI/Abdominal Exam GI & Abdominal Exam: Soft. absent: Distended, Tenderness - Neurological Exam Neurological Exam: Alert, Awake, CN II-XII Intact, Oriented x3 Neuro motor strength exam: Left Upper Extremity: 4, Right Upper Extremity: 5, Left Lower Extremity: 4, Right Lower Extremity: 5 - Psychiatric Exam Psychiatric exam: Depressed - Skin Skin Exam: Dry, Intact Additional comments: ecchymosis of mandible, ecchymosis of right leg Assessment and Plan (1) Coagulopathy Assessment & Plan: 56 year old female admitted for Coumadin toxicity with coagulopathy. Patient now with subtherapeutic INR on therapeutic lovenox and warfarin. Monitor INR. Medically optimize for treatment on STEP unit. Soft diet due to difficulty eating 2' to jaw pain. INR: 1.2 Status: Acute (2) Bipolar disorder with depression Assessment & Plan: mgmt as per psych, seroquel started Status: Acute (3) HTN (hypertension) Assessment & Plan: controlled with home medications -lisinopril 5mg/lopressor 25mg -lipitor 80mg Status: Chronic (4) Hypothyroid Assessment & Plan: c/w home Synthroid 175mg will repeat tsh given depressive sx Status: Chronic (5) DVT prophylaxis Assessment & Plan: On therapeutic lovenox and warfarin Status: Acute <María Joseph - Last Filed: 11/11/16 09:06> Objective - Vital Signs/Intake and Output Vital Signs (last 24 hours): Temp Pulse Resp BP Pulse Ox 97.5 F L 65 20 106/69 97 11/11/16 08:00 11/11/16 08:00 11/11/16 08:00 11/11/16 08:00 11/11/16 08:00 - Medications Medications: Current Medications Acetaminophen (Tylenol 325mg Tab) 650 mg PO Q6 PRN PRN Reason: Pain, Mild (1-3) Atorvastatin Calcium (Lipitor) 80 mg PO QPM [facility] Last Admin: 11/10/16 17:47 Dose: 80 mg Enoxaparin Sodium (Lovenox) 70 mg SC Q12 [facility] PRN Reason: Protocol Last Admin: 11/10/16 20:44 Dose: 70 mg Famotidine (Pepcid) 20 mg PO DAILY [facility] Last Admin: 11/10/16 10:39 Dose: 20 mg Ferrous Sulfate (Feosol) 325 mg PO DAILY [facility] Last Admin: 11/10/16 09:39 Dose: 325 mg Levothyroxine Sodium (Synthroid) 175 mcg PO DAILY@0630 [facility] Last Admin: 11/11/16 06:26 Dose: 175 mcg Lisinopril (Zestril) 5 mg PO DAILY [facility] Last Admin: 11/10/16 09:42 Dose: 5 mg Metoprolol Tartrate (Lopressor) 25 mg PO DAILY [facility] Last Admin: 11/10/16 10:41 Dose: Not Given Morphine Sulfate (Morphine) 2 mg IVP Q4 PRN PRN Reason: Pain, severe (8-10) Last Admin: 11/10/16 20:43 Dose: 2 mg Morphine Sulfate (Morphine) 1 mg IVP Q4 PRN PRN Reason: Pain, moderate (4-7) Last Admin: 11/10/16 13:52 Dose: 1 mg Nortriptyline HCl (Pamelor) 25 mg PO DAILY [facility] Last Admin: 11/10/16 10:35 Dose: 25 mg Pantoprazole Sodium (Protonix Ec Tab) 40 mg PO DAILY PRN PRN Reason: Heartburn Potassium Chloride (K-Dur 20 Meq Er Tab) 40 meq PO DAILY [facility] Last Admin: 11/10/16 15:31 Dose: 40 meq - Labs Labs: 11/10/16 06:00 11/10/16 06:00 PT 13.0 Seconds (9.8-13.1) 11/11/16 05:30 INR 1.3 (0.9-1.2) H 11/11/16 05:30 APTT 41.9 Seconds (25.6-37.1) H D 11/10/16 06:00 - Skin Additional comments: ADDENDUM ATTENDING NOTE PATIENT SEEN AND EXAMINED. CASE DISCUSSED WITH RESIDENT. AGREE WITH FINDINGS AND PLAN.
[2016-11-10] MEDS: Potassium Chloride 20 mEq ER Tab PO SCH (15:31)
--- NOTE | 2016-11-10 20:17 | CP.PCM.PN ---
Subjective - Date & Time of Evaluation Date of Evaluation: 11/10/16 Time of Evaluation: 17:00 - Subjective Subjective: Has jaw pain but improved, less swelling Objective - Vital Signs/Intake and Output Vital Signs (last 24 hours): Temp Pulse Resp BP Pulse Ox 98.4 F 68 14 108/72 99 11/10/16 16:59 11/10/16 16:59 11/10/16 16:59 11/10/16 16:59 11/10/16 16:59 Intake and Output: 11/10/16 11/11/16 18:59 06:59 Intake Total 1000 Output Total 0 Balance 1000 - Medications Medications: Current Medications Acetaminophen (Tylenol 325mg Tab) 650 mg PO Q6 PRN PRN Reason: Pain, Mild (1-3) Atorvastatin Calcium (Lipitor) 80 mg PO QPM [facility] Last Admin: 11/10/16 17:47 Dose: 80 mg Enoxaparin Sodium (Lovenox) 70 mg SC Q12 [facility] PRN Reason: Protocol Last Admin: 11/10/16 09:38 Dose: 70 mg Famotidine (Pepcid) 20 mg PO DAILY [facility] Last Admin: 11/10/16 10:39 Dose: 20 mg Ferrous Sulfate (Feosol) 325 mg PO DAILY [facility] Last Admin: 11/10/16 09:39 Dose: 325 mg Levothyroxine Sodium (Synthroid) 175 mcg PO DAILY@0630 [facility] Last Admin: 11/10/16 06:28 Dose: 175 mcg Lisinopril (Zestril) 5 mg PO DAILY [facility] Last Admin: 11/10/16 09:42 Dose: 5 mg Metoprolol Tartrate (Lopressor) 25 mg PO DAILY [facility] Last Admin: 11/10/16 10:41 Dose: Not Given Morphine Sulfate (Morphine) 2 mg IVP Q4 PRN PRN Reason: Pain, severe (8-10) Last Admin: 11/10/16 04:58 Dose: 2 mg Morphine Sulfate (Morphine) 1 mg IVP Q4 PRN PRN Reason: Pain, moderate (4-7) Last Admin: 11/10/16 13:52 Dose: 1 mg Nortriptyline HCl (Pamelor) 25 mg PO DAILY [facility] Last Admin: 11/10/16 10:35 Dose: 25 mg Pantoprazole Sodium (Protonix Ec Tab) 40 mg PO DAILY PRN PRN Reason: Heartburn Potassium Chloride (K-Dur 20 Meq Er Tab) 40 meq PO DAILY [facility] Last Admin: 11/10/16 15:31 Dose: 40 meq - Labs Labs: 11/10/16 06:00 11/10/16 06:00 PT 11.9 Seconds (9.8-13.1) 11/10/16 06:00 INR 1.2 (0.9-1.2) 11/10/16 06:00 APTT 41.9 Seconds (25.6-37.1) H D 11/10/16 06:00 - Head Exam Head Exam: ATRAUMATIC - Eye Exam Eye Exam: Normal appearance - ENT Exam ENT Exam: Mucous Membranes Dry - Respiratory Exam Respiratory Exam: NORMAL BREATHING PATTERN - Cardiovascular Exam Cardiovascular Exam: +S1, +S2 - GI/Abdominal Exam GI & Abdominal Exam: Normal Bowel Sounds - Extremities Exam Extremities Exam: Normal Inspection Assessment and Plan (1) Coagulopathy Assessment & Plan: anticoagulation no evidence of further bleeding with anticoagulation Status: Acute (2) Coumadin toxicity Assessment & Plan: resolved s/p vit k and FFP Status: Resolved
[2016-11-11] MEDS: Levothyroxine 175 MCG TAB PO SCH (06:26)
[2016-11-11] MEDS: Potassium Chloride 20 mEq ER Tab PO SCH (10:02)
[2016-11-11] MEDS: Enoxaparin 80 mg Syringe SC SCH ×2 (10:04→20:55)
--- NOTE | 2016-11-11 13:26 | CP.PCM.PN ---
<Marcelo Coyle - Last Filed: 11/11/16 13:15> Subjective - Date & Time of Evaluation Date of Evaluation: 11/11/16 Time of Evaluation: 10:15 - Subjective Subjective: Patient seen and examined at bedside. No acute overnight events. Feels better, continues to have pain and swelling but is improving. She is having difficulty opening her jaw due to pain. Soft diet now and advance as tolerated. Psych input appreciated. Patient is candidate for STEP unit. No headache, change of vision, chest pain, sob, or gross active bleeding noted. Objective - Vital Signs/Intake and Output Vital Signs (last 24 hours): Temp Pulse Resp BP Pulse Ox 97.5 F L 65 20 106/69 97 11/11/16 08:00 11/11/16 10:03 11/11/16 08:00 11/11/16 10:03 11/11/16 08:00 - Medications Medications: Current Medications Acetaminophen (Tylenol 325mg Tab) 650 mg PO Q6 PRN PRN Reason: Pain, Mild (1-3) Atorvastatin Calcium (Lipitor) 80 mg PO QPM [facility] Last Admin: 11/10/16 17:47 Dose: 80 mg Enoxaparin Sodium (Lovenox) 70 mg SC Q12 [facility] PRN Reason: Protocol Last Admin: 11/11/16 10:04 Dose: 70 mg Famotidine (Pepcid) 20 mg PO DAILY [facility] Last Admin: 11/11/16 10:03 Dose: 20 mg Ferrous Sulfate (Feosol) 325 mg PO DAILY [facility] Last Admin: 11/11/16 10:04 Dose: 325 mg Levothyroxine Sodium (Synthroid) 175 mcg PO DAILY@0630 [facility] Last Admin: 11/11/16 06:26 Dose: 175 mcg Lisinopril (Zestril) 5 mg PO DAILY [facility] Last Admin: 11/11/16 10:03 Dose: 5 mg Metoprolol Tartrate (Lopressor) 25 mg PO DAILY [facility] Last Admin: 11/11/16 10:00 Dose: 25 mg Morphine Sulfate (Morphine) 2 mg IVP Q4 PRN PRN Reason: Pain, severe (8-10) Last Admin: 11/11/16 10:09 Dose: 2 mg Morphine Sulfate (Morphine) 1 mg IVP Q4 PRN PRN Reason: Pain, moderate (4-7) Last Admin: 11/10/16 13:52 Dose: 1 mg Nortriptyline HCl (Pamelor) 25 mg PO DAILY [facility] Last Admin: 11/11/16 10:02 Dose: 25 mg Pantoprazole Sodium (Protonix Ec Tab) 40 mg PO DAILY PRN PRN Reason: Heartburn Potassium Chloride (K-Dur 20 Meq Er Tab) 40 meq PO DAILY [facility] Last Admin: 11/11/16 10:02 Dose: 40 meq - Labs Labs: 11/10/16 06:00 11/10/16 06:00 PT 13.0 Seconds (9.8-13.1) 11/11/16 05:30 INR 1.3 (0.9-1.2) H 11/11/16 05:30 APTT 41.9 Seconds (25.6-37.1) H D 11/10/16 06:00 - Constitutional Appears: Non-toxic, No Acute Distress - Head Exam Head Exam: NORMAL INSPECTION - Eye Exam Eye Exam: Normal appearance - Neck Exam Additional comments: ecchymosis of left mandible/submandibular region - Respiratory Exam Respiratory Exam: Clear to Ausculation Bilateral, NORMAL BREATHING PATTERN - Cardiovascular Exam Cardiovascular Exam: RRR, +S1, +S2 - GI/Abdominal Exam GI & Abdominal Exam: Soft, Normal Bowel Sounds. absent: Tenderness - Extremities Exam Extremities Exam: Normal Inspection (right lower extremity with 3 healing contusions) - Back Exam Back Exam: NORMAL INSPECTION - Neurological Exam Neurological Exam: Alert, Awake - Psychiatric Exam Psychiatric exam: Depressed, Flat Affect - Skin Skin Exam: Dry, Normal Color, Warm. absent: Mottled, Petechiae, Rash Assessment and Plan - Assessment and Plan (Free Text) Assessment: 56 year old female admitted for Coumadin toxicity with coagulopathy. Patient now with subtherapeutic INR on therapeutic lovenox and warfarin. Monitor INR. Medically optimize for treatment on STEP unit. Soft diet due to difficulty eating 2' to jaw pain. Plan: (1) Coagulopathy -admitted for Coumadin toxicity with coagulopathy -now with subtherapeutic INR on therapeutic lovenox and warfarin. -Monitor INR. (1.3 today) -Medically optimize for treatment on STEP unit. -Soft diet due to difficulty eating 2' to jaw pain. (2) Bipolar disorder with depression mgmt as per psych, seroquel started (3) HTN (hypertension)/ history of CVA controlled with home medications -lisinopril 5mg/lopressor 25mg -lipitor 80mg (4) Hypothyroid c/w home Synthroid 175mg TSH low, Free T4 normal. Will obtain T3 level before adjusting meds. (5) DVT prophylaxis On therapeutic lovenox and warfarin <María Joseph - Last Filed: 11/12/16 07:15> Objective - Vital Signs/Intake and Output Vital Signs (last 24 hours): Temp Pulse Resp BP Pulse Ox 98.3 F 68 20 121/74 96 11/12/16 05:12 11/12/16 05:12 11/12/16 05:12 11/12/16 05:12 11/12/16 05:12 - Medications Medications: Current Medications Acetaminophen (Tylenol 325mg Tab) 650 mg PO Q6 PRN PRN Reason: Pain, Mild (1-3) Atorvastatin Calcium (Lipitor) 80 mg PO QPM [facility] Last Admin: 11/11/16 17:40 Dose: 80 mg Enoxaparin Sodium (Lovenox) 70 mg SC Q12 [facility] PRN Reason: Protocol Last Admin: 11/11/16 20:55 Dose: 70 mg Famotidine (Pepcid) 20 mg PO DAILY [facility] Last Admin: 11/11/16 10:03 Dose: 20 mg Ferrous Sulfate (Feosol) 325 mg PO DAILY [facility] Last Admin: 11/11/16 10:04 Dose: 325 mg Levothyroxine Sodium (Synthroid) 175 mcg PO DAILY@0630 [facility] Last Admin: 11/12/16 06:03 Dose: 175 mcg Lisinopril (Zestril) 5 mg PO DAILY [facility] Last Admin: 11/11/16 10:03 Dose: 5 mg Metoprolol Tartrate (Lopressor) 25 mg PO DAILY [facility] Last Admin: 11/11/16 10:00 Dose: 25 mg Morphine Sulfate (Morphine) 2 mg IVP Q4 PRN PRN Reason: Pain, severe (8-10) Last Admin: 11/12/16 03:54 Dose: 2 mg Morphine Sulfate (Morphine) 1 mg IVP Q4 PRN PRN Reason: Pain, moderate (4-7) Last Admin: 11/10/16 13:52 Dose: 1 mg Nortriptyline HCl (Pamelor) 25 mg PO DAILY [facility] Last Admin: 11/11/16 10:02 Dose: 25 mg Pantoprazole Sodium (Protonix Ec Tab) 40 mg PO DAILY PRN PRN Reason: Heartburn Potassium Chloride (K-Dur 20 Meq Er Tab) 40 meq PO DAILY [facility] Last Admin: 11/11/16 10:02 Dose: 40 meq Warfarin Sodium (Coumadin) 2 mg PO QD5 [facility] PRN Reason: Protocol Stop: 11/12/16 17:01 - Labs Labs: 11/12/16 05:25 11/12/16 05:25 PT 13.8 Seconds (9.8-13.1) H 11/12/16 05:25 INR 1.3 (0.9-1.2) H 11/12/16 05:25 APTT 41.9 Seconds (25.6-37.1) H D 11/10/16 06:00 - Skin Additional comments: ADDENDUM ATTENDING NOTE PATIENT SEEN AND EXAMINED. CASE DISCUSSED WITH RESIDENT. AGREE WITH FINDINGS AND PLAN.
--- NOTE | 2016-11-11 21:20 | CP.PCM.PN ---
Subjective - Date & Time of Evaluation Date of Evaluation: 11/11/16 Time of Evaluation: 18:10 - Subjective Subjective: Has jaw pain but less neck swelling Objective - Vital Signs/Intake and Output Vital Signs (last 24 hours): Temp Pulse Resp BP Pulse Ox 98.7 F 68 20 109/72 98 11/11/16 19:28 11/11/16 19:28 11/11/16 19:28 11/11/16 19:28 11/11/16 19:28 - Medications Medications: Current Medications Acetaminophen (Tylenol 325mg Tab) 650 mg PO Q6 PRN PRN Reason: Pain, Mild (1-3) Atorvastatin Calcium (Lipitor) 80 mg PO QPM [facility] Last Admin: 11/11/16 17:40 Dose: 80 mg Enoxaparin Sodium (Lovenox) 70 mg SC Q12 [facility] PRN Reason: Protocol Last Admin: 11/11/16 20:55 Dose: 70 mg Famotidine (Pepcid) 20 mg PO DAILY [facility] Last Admin: 11/11/16 10:03 Dose: 20 mg Ferrous Sulfate (Feosol) 325 mg PO DAILY [facility] Last Admin: 11/11/16 10:04 Dose: 325 mg Levothyroxine Sodium (Synthroid) 175 mcg PO DAILY@0630 [facility] Last Admin: 11/11/16 06:26 Dose: 175 mcg Lisinopril (Zestril) 5 mg PO DAILY [facility] Last Admin: 11/11/16 10:03 Dose: 5 mg Metoprolol Tartrate (Lopressor) 25 mg PO DAILY [facility] Last Admin: 11/11/16 10:00 Dose: 25 mg Morphine Sulfate (Morphine) 2 mg IVP Q4 PRN PRN Reason: Pain, severe (8-10) Last Admin: 11/11/16 20:54 Dose: 2 mg Morphine Sulfate (Morphine) 1 mg IVP Q4 PRN PRN Reason: Pain, moderate (4-7) Last Admin: 11/10/16 13:52 Dose: 1 mg Nortriptyline HCl (Pamelor) 25 mg PO DAILY [facility] Last Admin: 11/11/16 10:02 Dose: 25 mg Pantoprazole Sodium (Protonix Ec Tab) 40 mg PO DAILY PRN PRN Reason: Heartburn Potassium Chloride (K-Dur 20 Meq Er Tab) 40 meq PO DAILY [facility] Last Admin: 11/11/16 10:02 Dose: 40 meq - Labs Labs: 11/10/16 06:00 11/10/16 06:00 PT 13.0 Seconds (9.8-13.1) 11/11/16 05:30 INR 1.3 (0.9-1.2) H 11/11/16 05:30 APTT 41.9 Seconds (25.6-37.1) H D 11/10/16 06:00 - Head Exam Head Exam: ATRAUMATIC - Eye Exam Eye Exam: Normal appearance - ENT Exam ENT Exam: Mucous Membranes Dry - Respiratory Exam Respiratory Exam: NORMAL BREATHING PATTERN - Cardiovascular Exam Cardiovascular Exam: +S1, +S2 - GI/Abdominal Exam GI & Abdominal Exam: Normal Bowel Sounds - Extremities Exam Extremities Exam: Normal Inspection Assessment and Plan (1) Coagulopathy Assessment & Plan: secondary to anticoagulation Status: Acute (2) Coumadin toxicity Assessment & Plan: resolved s/p vit k and FFP Status: Resolved
[2016-11-12] MEDS: Levothyroxine 175 MCG TAB PO SCH (06:03)
[2016-11-12 06:17] LABS: HEMATOCRIT 34.7 % (34.0-47.0); MEAN CELL VOLUME 89.6 fl (81.0-99.0); MEAN CORPUSCULAR HEMOGLOBIN 29.9 pg (27.0-31.0); MEAN CORPUSCULAR HGB CONC 33.4 g/dL (33.0-37.0); RED CELL DISTRIBUTION WIDTH 13.4 % (11.5-14.5); WHITE BLOOD COUNT 5.4 K/uL (4.8-10.8)
[2016-11-12 06:24] LABS: BLOOD UREA NITROGEN 6 mg/dl (7-17); CALCIUM 9.5 mg/dL (8.4-10.2); CARBON DIOXIDE 25 mmol/L (22-30); CHLORIDE 106 mmol/L (98-107); GFR AFRICAN-AMERICAN > 60; GLUCOSE,RANDOM 109 mg/dL (65-105); SODIUM 139 mmol/l (132-148)
--- NOTE | 2016-11-12 09:06 | CP.PCM.DIS ---
<PerezEduardo mott - Last Filed: 11/12/16 17:07> Provider - Provider Date of Admission: 11/08/16 09:54 Attending physician: Simba Cloud MD Primary care physician: Simba Cloud MD Consults: Hematology/Oncology: Dr. Laureano Psychiatry: Dr. Porter Time Spent in preparation of Discharge (in minutes): 35 Diagnosis - Discharge Diagnosis (1) Coagulopathy Status: Acute Comment: Initially treated with Vitamin K and 1 unit of FFP. Patients INR is now subtherapeutic at 1.3, Dose of warfarin increased today to 4mg. (2) Bipolar disorder with depression Status: Acute Comment: currently worsened, with SI, depression. admit to STEP unit. (3) HTN (hypertension) Status: Chronic Comment: controlled with metoprolol tartrate 25 mg daily, lisinopril 5mg daily (4) Hypothyroid Status: Chronic Comment: low tsh 0.09, on levothyroxine 175mcg (5) CVA (cerebral vascular accident) Status: Chronic Comment: hx of cva with left sided hemiplegia Hospital Course - Lab Results Lab Results: Most Recent Lab Values WBC 5.4 K/uL (4.8-10.8) 11/12/16 05:25 RBC 3.87 Mil/uL (3.80-5.20) 11/12/16 05:25 Hgb 11.6 g/dL (12.0-16.0) L 11/12/16 05:25 Hct 34.7 % (34.0-47.0) 11/12/16 05:25 MCV 89.6 fl (81.0-99.0) 11/12/16 05:25 MCH 29.9 pg (27.0-31.0) 11/12/16 05:25 MCHC 33.4 g/dL (33.0-37.0) 11/12/16 05:25 RDW 13.4 % (11.5-14.5) 11/12/16 05:25 Plt Count 194 K/uL (130-400) 11/12/16 05:25 MPV 8.7 fl (7.2-11.7) 11/08/16 05:50 Neut % (Auto) 70.7 % (50.0-75.0) 11/08/16 05:50 Lymph % (Auto) 22.7 % (20.0-40.0) 11/08/16 05:50 Pinal % (Auto) 5.4 % (0.0-10.0) 11/08/16 05:50 Eos % (Auto) 0.6 % (0.0-4.0) 11/08/16 05:50 Baso % (Auto) 0.6 % (0.0-2.0) 11/08/16 05:50 Neut # 5.4 K/uL (1.8-7.0) 11/08/16 05:50 Lymph # 1.7 K/uL (1.0-4.3) 11/08/16 05:50 Pinal # 0.4 K/uL (0.0-0.8) 11/08/16 05:50 Eos # 0.0 K/uL (0.0-0.7) 11/08/16 05:50 Baso # 0.0 K/uL (0.0-0.2) 11/08/16 05:50 PT 13.8 Seconds (9.8-13.1) H 11/12/16 05:25 INR 1.3 (0.9-1.2) H 11/12/16 05:25 APTT 41.9 Seconds (25.6-37.1) H D 11/10/16 06:00 Sodium 139 mmol/l (132-148) 11/12/16 05:25 Potassium 4.0 MMOL/L (3.6-5.0) 11/12/16 05:25 Chloride 106 mmol/L (98-107) 11/12/16 05:25 Carbon Dioxide 25 mmol/L (22-30) 11/12/16 05:25 Anion Gap 12 (10-20) 11/12/16 05:25 BUN 6 mg/dl (7-17) L 11/12/16 05:25 Creatinine 0.5 mg/dL (0.7-1.2) L 11/12/16 05:25 Est GFR ( Amer) > 60 11/12/16 05:25 Est GFR (Non-Af Amer) > 60 11/12/16 05:25 Random Glucose 109 mg/dL (65-105) H 11/12/16 05:25 Calcium 9.5 mg/dL (8.4-10.2) 11/12/16 05:25 Total Bilirubin 0.9 mg/dl (0.2-1.3) 11/09/16 05:40 AST 20 U/L (14-36) 11/09/16 05:40 ALT 41 U/L (9-52) 11/09/16 05:40 Alkaline Phosphatase 78 U/L (38-126) 11/09/16 05:40 Total Protein 6.6 G/DL (6.3-8.2) 11/09/16 05:40 Albumin 3.8 g/dL (3.5-5.0) 11/09/16 05:40 Globulin 2.9 gm/dL (2.2-3.9) 11/09/16 05:40 Albumin/Globulin Ratio 1.3 (1.0-2.1) 11/09/16 05:40 Free T4 1.96 ng/dL (0.78-2.19) 11/11/16 05:30 Total T3 0.988 nmol/L (1.49-2.60) L 11/12/16 05:25 TSH 3rd Generation 0.09 mIU/ML (0.46-4.68) L 11/11/16 05:30 Blood Type O POSITIVE 11/08/16 10:49 Antibody Screen Negative 11/08/16 10:49 BBK History Checked Patient has bt 11/08/16 10:49 - Hospital Course Hospital Course: 56 year old female with hx of CVA with residual left sided hemiplegia, HTN, hypothyroidism, bipolar depression admitted for coumadin toxicity and coagulopathy. Patients INR is now subtherapeutic at 1, Dose of warfarin increased today to 4mg. She is still depressed, will be discharged to STEP unit for further treatment of depression. She is currently on levothyroxine of 175mcg with TSH of 0.09. Due to cva patient is unable to perform ADLs without assistance, would benefit from home services. Will continue to follow while in house. Dr. Laureano and Dr. Porter have evaluated the patient and recommendations were appreciated. Discharge Medications: Atorvastatin Calcium (Lipitor) 80 mg PO QPM KATHLEEN Enoxaparin Sodium (Lovenox) 70 mg SC Q12 KATHLEEN Famotidine (Pepcid) 20 mg PO DAILY KATHLEEN Ferrous Sulfate (Feosol) 325 mg PO DAILY KATHLEEN Levothyroxine Sodium (Synthroid) 175 mcg PO DAILY@0630 KATHLEEN Lisinopril (Zestril) 5 mg PO DAILY KATHLEEN Metoprolol Tartrate (Lopressor) 25 mg PO DAILY KATHLEEN Nortriptyline HCl (Pamelor) 25 mg PO DAILY KATHLEEN Pantoprazole Sodium (Protonix Ec Tab) 40 mg PO DAILY PRN Potassium Chloride (K-Dur 20 Meq Er Tab) 40 meq PO DAILY KATHLEEN - Date & Time of H&P Date of H&P: 11/08/16 Time of H&P: 12:03 Discharge Exam - Head Exam Head Exam: ATRAUMATIC - Eye Exam Eye Exam: Normal appearance - ENT Exam ENT Exam: Mucous Membranes Moist - Neck Exam Neck exam: Tenderness Additional comments: ecchymosis of left mandible / neck - Respiratory Exam Respiratory Exam: NORMAL BREATHING PATTERN, UNREMARKABLE - Cardiovascular Exam Cardiovascular Exam: REGULAR RHYTHM, +S1, +S2 - GI/Abdominal Exam GI & Abdominal Exam: Unremarkable - Rectal Exam Rectal Exam: Deferred - Extremities Exam Additional comments: no pedal edema - Neurological Exam Neurological exam: Alert, CN II-XII Intact - Psychiatric Exam Psychiatric exam: Depressed (crying during interview) - Skin Skin Exam: Dry, Intact Discharge Plan - Follow Up Plan Condition: STABLE Disposition: DISCHARGE TO PSYCH HOSPITAL Referrals: Simba Cloud MD [Primary Care Provider] - <Brad Peacock - Last Filed: 11/13/16 06:42> Provider - Provider Date of Admission: 11/08/16 09:54 Attending physician: Simba Cloud MD Primary care physician: Simba Cloud MD Hospital Course - Lab Results Lab Results: Most Recent Lab Values WBC 5.4 K/uL (4.8-10.8) 11/12/16 05:25 RBC 3.87 Mil/uL (3.80-5.20) 11/12/16 05:25 Hgb 11.6 g/dL (12.0-16.0) L 11/12/16 05:25 Hct 34.7 % (34.0-47.0) 11/12/16 05:25 MCV 89.6 fl (81.0-99.0) 11/12/16 05:25 MCH 29.9 pg (27.0-31.0) 11/12/16 05:25 MCHC 33.4 g/dL (33.0-37.0) 11/12/16 05:25 RDW 13.4 % (11.5-14.5) 11/12/16 05:25 Plt Count 194 K/uL (130-400) 11/12/16 05:25 MPV 8.7 fl (7.2-11.7) 11/08/16 05:50 Neut % (Auto) 70.7 % (50.0-75.0) 11/08/16 05:50 Lymph % (Auto) 22.7 % (20.0-40.0) 11/08/16 05:50 P[place] % (Auto) 5.4 % (0.0-10.0) 11/08/16 05:50 Eos % (Auto) 0.6 % (0.0-4.0) 11/08/16 05:50 Baso % (Auto) 0.6 % (0.0-2.0) 11/08/16 05:50 Neut # 5.4 K/uL (1.8-7.0) 11/08/16 05:50 Lymph # 1.7 K/uL (1.0-4.3) 11/08/16 05:50 Pinal # 0.4 K/uL (0.0-0.8) 11/08/16 05:50 Eos # 0.0 K/uL (0.0-0.7) 11/08/16 05:50 Baso # 0.0 K/uL (0.0-0.2) 11/08/16 05:50 PT 13.8 Seconds (9.8-13.1) H 11/12/16 05:25 INR 1.3 (0.9-1.2) H 11/12/16 05:25 APTT 41.9 Seconds (25.6-37.1) H D 11/10/16 06:00 Sodium 139 mmol/l (132-148) 11/12/16 05:25 Potassium 4.0 MMOL/L (3.6-5.0) 11/12/16 05:25 Chloride 106 mmol/L (98-107) 11/12/16 05:25 Carbon Dioxide 25 mmol/L (22-30) 11/12/16 05:25 Anion Gap 12 (10-20) 11/12/16 05:25 BUN 6 mg/dl (7-17) L 11/12/16 05:25 Creatinine 0.5 mg/dL (0.7-1.2) L 11/12/16 05:25 Est GFR ( Amer) > 60 11/12/16 05:25 Est GFR (Non-Af Amer) > 60 11/12/16 05:25 Random Glucose 109 mg/dL (65-105) H 11/12/16 05:25 Calcium 9.5 mg/dL (8.4-10.2) 11/12/16 05:25 Total Bilirubin 0.9 mg/dl (0.2-1.3) 11/09/16 05:40 AST 20 U/L (14-36) 11/09/16 05:40 ALT 41 U/L (9-52) 11/09/16 05:40 Alkaline Phosphatase 78 U/L (38-126) 11/09/16 05:40 Total Protein 6.6 G/DL (6.3-8.2) 11/09/16 05:40 Albumin 3.8 g/dL (3.5-5.0) 11/09/16 05:40 Globulin 2.9 gm/dL (2.2-3.9) 11/09/16 05:40 Albumin/Globulin Ratio 1.3 (1.0-2.1) 11/09/16 05:40 Free T4 1.96 ng/dL (0.78-2.19) 11/11/16 05:30 Total T3 0.988 nmol/L (1.49-2.60) L 11/12/16 05:25 TSH 3rd Generation 0.09 mIU/ML (0.46-4.68) L 11/11/16 05:30 Blood Type O POSITIVE 11/08/16 10:49 Antibody Screen Negative 11/08/16 10:49 BBK History Checked Patient has bt 11/08/16 10:49 Attending/Attestation - Attestation I have personally seen and examined this patient.: Yes I have fully participated in the care of the patient.: Yes I have reviewed all pertinent clinical information, including history, physical exam and plan: Yes
[2016-11-12] MEDS: Potassium Chloride 20 mEq ER Tab PO SCH (10:15)
[2016-11-12] MEDS: Enoxaparin 80 mg Syringe SC SCH (10:16)
[2016-11-12 15:42] VITALS: BP 115/76; PULSE 69; RESP 20; TEMP 98.5; O2SAT 99
== END 2016-11-12 18:30 | DRG 813 ==
LOC: H.ER 05:00 → H.ERHOLD 09:54 → H.TEL 12:06
PROVIDERS: ADMIT Family Medicine; ATTEND Family Medicine
PROC: 0CJS8ZZ Inspection of Larynx, Via Natural or Artificial Opening Endoscopic (ICD-10-PCS; principal; 2016-11-08)
PROC: 30233K1 Transfusion of Nonautologous Frozen Plasma into Peripheral Vein, Percutaneous Approach (ICD-10-PCS; 2016-11-08)
DX: D68.9 Coagulation defect, unspecified (principal); I69.354 Hemiplegia and hemiparesis following cerebral infarction affecting left non-dominant side; I10 Essential (primary) hypertension; L03.211 Cellulitis of face; G35 Multiple sclerosis; T45.515A Adverse effect of anticoagulants, initial encounter; E78.5 Hyperlipidemia, unspecified; I25.10 Atherosclerotic heart disease of native coronary artery without angina pectoris; K11.20 Sialoadenitis, unspecified; R68.84 Jaw pain; J45.909 Unspecified asthma, uncomplicated; E03.9 Hypothyroidism, unspecified; K29.70 Gastritis, unspecified, without bleeding; F31.9 Bipolar disorder, unspecified; F20.9 Schizophrenia, unspecified; F41.9 Anxiety disorder, unspecified; Z79.01 Long term (current) use of anticoagulants; Z95.0 Presence of cardiac pacemaker; Z95.2 Presence of prosthetic heart valve; Z95.1 Presence of aortocoronary bypass graft; Z95.5 Presence of coronary angioplasty implant and graft; Z87.891 Personal history of nicotine dependence; Z87.01 Personal history of pneumonia (recurrent); Y92.9 Unspecified place or not applicable

== ENCOUNTER 2016-11-12 19:06 | Inpatient (IN) | payer OTHER ==
[2016-11-12 23:14] VITALS: BMI 27.3
[2016-11-12] MEDS ORDERED: Alum-Mag Hydrox-Simethicone Susp (30 mL) PO PRN (23:46)
[2016-11-12] MEDS ORDERED: Magnesium Hydroxide Susp 30 ml UD PO PRN (23:46)
[2016-11-12] MEDS ORDERED: Bismuth Subsalicylate 262 mg/15 ml Sus (240 ml) PO PRN (23:46)
--- NOTE | 2016-11-13 03:19 | PCM.BM ---
<Melissa Handy - Last Filed: 11/13/16 03:17> Treatment Plan Problems - Problems identified on initial assessmt Anxiety. Date Initiated: 11/13/16 Time Initiated: 03:18 Assessment reference: NA Status: Active Priority: 1 Altered sleep pattern Date Initiated: 11/13/16 Time Initiated: 03:19 Assessment reference: NA Status: Active Priority: 2 Treatment assets and liabiliti Patient Assests: adapts well, cooperative, educated, insightful, good support system, good interpersonal skills Patient Liabilities: physical pain, medical problems - Milieu Protocol Maintain good personal hygiene: daily Encourage regular showers, daily Remind patient to perform daily oral care, daily Assist patient to perform ADL's Maintain personal safety: every shift Educate patient to report safety concerns to staff, every shift Monitor environment for contraband/sharps Medication safety: Monitor for expected outcome, potential side effects: every shift, Assess barriers to learning: every shift, Assess readiness for medication education: every shift <Alka Alonso - Last Filed: 11/13/16 09:27> - Diagnosis (1) Bipolar disorder with depression Status: Acute Interventions: Medication management, individual and group therapy, psychoeducation 11/13/16 09:28 <Zan Reeder - Last Filed: 11/15/16 10:51> Family Contact Family contact: Patient agrees to contact, Family has been contacted by patient , Telephone contact initiated by staff Family contact name: Alejandro Bourgeois () [phone] Family contacted how many times per week?: 3 - Goals for Treatment Patient goals for treatment: Pt was fairly apathetic and did not list any goals for treatment. Pt has been very determined about asking to be discharged. Patient's family/SO goals for treatment: Decreased depression and increased energy. Discharge/Continuing Care - Education Needs Education Needs: Family Medication, Patient Medication, Patient Coping Skills, Patient Community resources, Patient Personal Hygiene/Grooming, Patient Aftercare Safety Plan - Discharge Discharge Criteria: Tolerates medication w/o severe side effects, Free of Suicidal thoughts, Normal sleep pattern, Ability to care for self Discharge to:: Home, With Family - Treatment Team Participation Discussed with Family/SO: Yes Was Patient/Family/SO present at Treatment Team Meeting: Yes (Pt was present in team.)
[2016-11-13] MEDS ORDERED: Levothyroxine 175 MCG TAB PO SCH (06:30)
[2016-11-13 08:09] LABS: ALB/GLOB RATIO 1.3 (1.0-2.1); ALKALINE PHOSPHATASE 85 U/L (38-126); ALT/SGPT 91 U/L (9-52); AST/SGOT 51 U/L (14-36); BILIRUBIN,TOTAL 0.8 mg/dl (0.2-1.3); BLOOD UREA NITROGEN 5 mg/dl (7-17); CALCIUM 10.1 mg/dL (8.4-10.2); CARBON DIOXIDE 25 mmol/L (22-30); CHLORIDE 105 mmol/L (98-107); CHOLESTEROL 124 mg/dL (0-199); GFR AFRICAN-AMERICAN > 60; GLUCOSE,RANDOM 110 mg/dL (65-105); POTASSIUM 4.3 MMOL/L (3.6-5.0); SODIUM 139 mmol/l (132-148); TOTAL PROTEIN 6.8 G/DL (6.3-8.2)
[2016-11-13 08:22] LABS: T4 19.4 ug/dl (5.5-11.0)
[2016-11-13 08:35] LABS: THYROID STIMULATING HORMONE 0.06 mIU/ML (0.46-4.68)
[2016-11-13] MEDS ORDERED: Pantoprazole 40 mg EC Tab PO PRN (09:00)
[2016-11-13] MEDS ORDERED: Potassium Chloride 20 mEq ER Tab PO SCH (09:00)
[2016-11-13] MEDS ORDERED: POTASSIUM CHLORIDE 10 MEQ PO SCH (09:00)
--- NOTE | 2016-11-13 09:01 | CP.PCM.HP ---
Past Patient History - Infectious Disease Hx of Infectious Diseases: None - Tetanus Immunizations Tetanus Immunization: Unknown - Past Medical History & Family History Past Medical History?: Yes - Past Social History Smoking Status: Former Smoker - CARDIAC Hx Cardiac Disorders: Yes Hx Hypercholesterolemia: Yes Hx Hypertension: Yes - PULMONARY Hx Asthma: Yes Hx Bronchitis: Yes (4x) Hx Pneumonia: Yes - NEUROLOGICAL HX Cerebrovascular Accident: Yes - HEENT Hx HEENT Problems: No - RENAL Hx Chronic Kidney Disease: No - ENDOCRINE/METABOLIC Hx Hypothyroidism: Yes - HEMATOLOGICAL/ONCOLOGICAL Hx Human Immunodeficiency Virus (HIV): No - INTEGUMENTARY Hx Dermatological Problems: (Eczema) - MUSCULOSKELETAL/RHEUMATOLOGICAL Hx Arthritis: Yes Hx Falls: Yes - GASTROINTESTINAL Hx Gastritis: Yes - GENITOURINARY/GYNECOLOGICAL Hx Genitourinary Disorders: No - PSYCHIATRIC Hx Bipolar Disorder: Yes Hx Depression: Yes Hx Substance Use: No - SURGICAL HISTORY Hx Coronary Artery Bypass Graft: Yes (x5 in 10/2015) Hx Coronary Stent: Yes (left circumflex) Hx Hysterectomy: Yes - ANESTHESIA Hx Anesthesia: Yes Hx Anesthesia Reactions: No Hx Malignant Hyperthermia: No Meds Allergies/Adverse Reactions: Allergies Allergy/AdvReac Type Severity Reaction Status Date / Time No Known Allergies Allergy Verified 05/09/16 01:51 Results - Vital Signs Recent Vital Signs: Last Vital Signs Temp 97.5 F L 11/13/16 05:51 Pulse 78 11/13/16 05:51 Resp 18 11/13/16 05:51 BP 109/68 11/13/16 05:51 Pulse Ox - Labs Result Diagrams: 11/13/16 07:22 Labs: Laboratory Results - last 24 hr 11/13/16 11/13/16 11/13/16 07:22 07:22 07:22 PT 15.7 H INR 1.5 H Sodium 139 Potassium 4.3 Chloride 105 Carbon Dioxide 25 Anion Gap 13 BUN 5 L Creatinine 0.5 L Est GFR ( Amer) > 60 Est GFR (Non-Af Amer) > 60 Random Glucose 110 H Calcium 10.1 Ferritin 314.0 Total Bilirubin 0.8 AST 51 H D ALT 91 H D Alkaline Phosphatase 85 Total Protein 6.8 Albumin 3.8 Globulin 3.0 Albumin/Globulin Ratio 1.3 Triglycerides 115 Cholesterol 124 LDL Cholesterol Direct 70 HDL Cholesterol 26 L Vitamin B12 407 Free T4 1.89 Thyroxine (T4) 19.4 H TSH 3rd Generation 0.06 L
--- NOTE | 2016-11-13 09:16 | CP.PCM.CON ---
<Batool Perezmaira - Last Filed: 11/13/16 15:03> History of Present Illness - History of Present Illness History of Present Illness: 56 year old female with PMH of CVA, HTN, HLD, CABG and Aortic valve replacement , hypothyroidism, and bipolar disorder admitted to STEP unit for depression. Patient previously admitted to for coumadin toxicity and coagulopathy that is being corrected with vitamin k and 1 unit of ffp. Patient is on warfarin for anticoagulation. Her hypertension has been well controlled. She is not currently on medications for her bipolar disorder, and has been off of them for some time. She was previously following up with Dr. Denney. Patient appears more withdrawn today, poor eye contact, responds to questions but less than yesterday. Patients INR is not at goal, will increase dose of coumadin tonight to 5mg. Patient has loss of appetite, fatigue, pain of left jaw, . Denies chest pain, dyspnea, nausea, vomiting, abdominal pain, pedal edema. Past medical history: HTN, CVA with left hemiplegia, CAD s/p CABG and aortic valve replacement, Bipolar disorder, hypothyroidism Past surgical history: breast lesions removed. benign as per patient, CABG, aortic valve replacement, hysterectomy for fibroids Allergies: NKA Past social history: patient lives with who helps her with ADLs. Medications: Atorvastatin Calcium (Lipitor) 80 mg PO QPM KATHLEEN Enoxaparin Sodium (Lovenox) 70 mg SC Q12 KATHLEEN Famotidine (Pepcid) 20 mg PO DAILY KATHLEEN Ferrous Sulfate (Feosol) 325 mg PO DAILY KATHLEEN Levothyroxine Sodium (Synthroid) 175 mcg PO DAILY@0630 KATHLEEN Lisinopril (Zestril) 5 mg PO DAILY KATHLEEN Metoprolol Tartrate (Lopressor) 25 mg PO DAILY KATHLEEN Nortriptyline HCl (Pamelor) 25 mg PO DAILY KATHLEEN Pantoprazole Sodium (Protonix Ec Tab) 40 mg PO DAILY PRN Potassium Chloride (K-Dur 20 Meq Er Tab) 40 meq PO DAILY KATHLEEN Warfarin 4mg PO Past Patient History - Infectious Disease Hx of Infectious Diseases: None - Tetanus Immunizations Tetanus Immunization: Unknown - Past Medical History & Family History Past Medical History?: Yes - Past Social History Smoking Status: Former Smoker - CARDIAC Hx Cardiac Disorders: Yes Hx Hypercholesterolemia: Yes Hx Hypertension: Yes - PULMONARY Hx Asthma: Yes Hx Bronchitis: Yes (4x) Hx Pneumonia: Yes - NEUROLOGICAL HX Cerebrovascular Accident: Yes - HEENT Hx HEENT Problems: No - RENAL Hx Chronic Kidney Disease: No - ENDOCRINE/METABOLIC Hx Hypothyroidism: Yes - HEMATOLOGICAL/ONCOLOGICAL Hx Human Immunodeficiency Virus (HIV): No - INTEGUMENTARY Hx Dermatological Problems: (Eczema) - MUSCULOSKELETAL/RHEUMATOLOGICAL Hx Arthritis: Yes Hx Falls: Yes - GASTROINTESTINAL Hx Gastritis: Yes - GENITOURINARY/GYNECOLOGICAL Hx Genitourinary Disorders: No - PSYCHIATRIC Hx Bipolar Disorder: Yes Hx Depression: Yes Hx Substance Use: No - SURGICAL HISTORY Hx Coronary Artery Bypass Graft: Yes (x5 in 10/2015) Hx Coronary Stent: Yes (left circumflex) Hx Hysterectomy: Yes - ANESTHESIA Hx Anesthesia: Yes Hx Anesthesia Reactions: No Hx Malignant Hyperthermia: No Meds Allergies/Adverse Reactions: Allergies Allergy/AdvReac Type Severity Reaction Status Date / Time No Known Allergies Allergy Verified 05/09/16 01:51 - Medications Medications: Current Medications Acetaminophen (Tylenol 325mg Tab) 650 mg PO Q4 PRN PRN Reason: Pain, moderate (4-7) Last Admin: 11/13/16 01:06 Dose: 650 mg Al Hydrox/Mg Hydrox/Simethicone (Maalox Plus 30 Ml) 30 ml PO Q4 PRN PRN Reason: Dyspepsia Atorvastatin Calcium (Lipitor) 80 mg PO HS KATHLEEN Bismuth Subsalicylate (Pepto-Bismol) 524 mg PO Q4 PRN PRN Reason: Diarrhea Famotidine (Pepcid) 20 mg PO DAILY KATHLEEN Ferrous Sulfate (Feosol) 325 mg PO DAILY KATHLEEN Levothyroxine Sodium (Synthroid) 175 mcg PO DAILY@0630 KATHLEEN Lisinopril (Zestril) 5 mg PO DAILY KATHLEEN Lorazepam (Ativan) 0.5 mg PO HS PRN PRN Reason: Insomnia Stop: 11/26/16 23:47 Lorazepam (Ativan) 0.5 mg PO Q6 PRN PRN Reason: Anixety/Agitation Stop: 11/26/16 23:47 Magnesium Hydroxide (Milk Of Magnesia) 30 ml PO HS PRN PRN Reason: Constipation Metoprolol Tartrate (Lopressor) 25 mg PO DAILY KATHLEEN Nortriptyline HCl (Pamelor) 25 mg PO DAILY KATHLEEN Pantoprazole Sodium (Protonix Ec Tab) 40 mg PO DAILY PRN PRN Reason: Heartburn Potassium Chloride (K-Dur 20 Meq Er Tab) 40 meq PO DAILY KATHLEEN Warfarin Sodium (Coumadin) 4 mg PO QAM KATHLEEN PRN Reason: Protocol Physical Exam - ENT Exam ENT Exam: Mucous Membranes Moist - Respiratory Exam Respiratory Exam: NORMAL BREATHING PATTERN - Cardiovascular Exam Cardiovascular Exam: REGULAR RHYTHM, +S1, +S2 - GI/Abdominal Exam GI & Abdominal Exam: Normal Bowel Sounds, Soft. absent: Tenderness - Rectal Exam Rectal Exam: Deferred - Extremities Exam Extremities exam: Negative for: pedal edema - Neurological Exam Neurological exam: Alert, Motor Sensory Deficit (left hemiplegia) - Psychiatric Exam Psychiatric exam: Depressed Additional comments: psychomotor retardation - Skin Skin Exam: Dry, Intact Results - Vital Signs Recent Vital Signs: Last Vital Signs Temp 97.5 F L 11/13/16 05:51 Pulse 78 11/13/16 05:51 Resp 18 11/13/16 05:51 BP 109/68 11/13/16 05:51 Pulse Ox - Labs Result Diagrams: 11/13/16 07:22 Labs: Laboratory Results - last 24 hr 11/13/16 11/13/16 11/13/16 07:22 07:22 07:22 PT 15.7 H INR 1.5 H Sodium 139 Potassium 4.3 Chloride 105 Carbon Dioxide 25 Anion Gap 13 BUN 5 L Creatinine 0.5 L Est GFR ( Amer) > 60 Est GFR (Non-Af Amer) > 60 Random Glucose 110 H Calcium 10.1 Ferritin 314.0 Total Bilirubin 0.8 AST 51 H D ALT 91 H D Alkaline Phosphatase 85 Total Protein 6.8 Albumin 3.8 Globulin 3.0 Albumin/Globulin Ratio 1.3 Triglycerides 115 Cholesterol 124 LDL Cholesterol Direct 70 HDL Cholesterol 26 L Vitamin B12 407 Free T4 1.89 Thyroxine (T4) 19.4 H TSH 3rd Generation 0.06 L Assessment & Plan - Assessment and Plan (Free Text) Assessment: 56 year old female admitted for inpatient management of bipolar depression with suicidal ideation, previosuly admitted for coumadin toxicity with coagulopathy. INR is subtherapeutic, however will continue with Warfarin 4mg for now, INR trending up. Adjust tomorrow if continues to be subtherapeutic. Hypothyroidism is not well controlled, will decrease dose of levothyroxine as outlined below. #Subtherapeutic INR: -INR 1.5, trending up, but not at goal: 2.5-3.5 -warfarin 4mg -repeat INR in AM #Bipolar depression: - management as per psychiatry #Hx of Aortic valve replacement: -needs INR 2.5-3.5, on therapeutic anticoagulation #HTN: -controlled with lisinopril 5mg, Metoprolol 25mg, Lipitor 80mg #CVA with left sided hemiplegia -as per previous pt documentation, not candidate for skilled pt -will have ot reeval. #Hypothyroidism: -TSH: 0.06, Free t4: 1.86, Total T4: 19.4 -Discontinue Levothyroxine 175 mcg daily, Start Levothyroxine 150 mcg DVT Prophylaxis: -on therapeutic anticoagulation with lovenox 70mg q12 <Brad Peacock - Last Filed: 11/15/16 06:20> Meds - Medications Medications: Current Medications Acetaminophen (Tylenol 325mg Tab) 650 mg PO Q4 PRN PRN Reason: Pain, moderate (4-7) Last Admin: 11/13/16 01:06 Dose: 650 mg Al Hydrox/Mg Hydrox/Simethicone (Maalox Plus 30 Ml) 30 ml PO Q4 PRN PRN Reason: Dyspepsia Atorvastatin Calcium (Lipitor) 80 mg PO HS [facility] Last Admin: 11/14/16 20:59 Dose: 80 mg Bismuth Subsalicylate (Pepto-Bismol) 524 mg PO Q4 PRN PRN Reason: Diarrhea Last Admin: 11/14/16 20:45 Dose: 524 mg Enoxaparin Sodium (Lovenox) 70 mg SC Q12 KATHLEEN PRN Reason: Protocol Last Admin: 11/14/16 21:11 Dose: 70 mg Famotidine (Pepcid) 20 mg PO DAILY [facility] Last Admin: 11/14/16 08:10 Dose: 20 mg Ferrous Sulfate (Feosol) 325 mg PO DAILY [facility] Last Admin: 11/14/16 08:09 Dose: 325 mg Levothyroxine Sodium (Synthroid) 150 mcg PO DAILY@0630 [facility] Last Admin: 11/15/16 06:18 Dose: 150 mcg Lisinopril (Zestril) 5 mg PO DAILY [facility] Last Admin: 11/14/16 08:23 Dose: Not Given Lorazepam (Ativan) 0.5 mg PO HS PRN PRN Reason: Insomnia Stop: 11/26/16 23:47 Lorazepam (Ativan) 0.5 mg PO Q6 PRN PRN Reason: Anixety/Agitation Stop: 11/26/16 23:47 Magnesium Hydroxide (Milk Of Magnesia) 30 ml PO HS PRN PRN Reason: Constipation Metoprolol Tartrate (Lopressor) 25 mg PO DAILY [facility] Last Admin: 11/14/16 08:21 Dose: Not Given Quetiapine Fumarate (Seroquel) 50 mg PO Q12 [facility] Last Admin: 11/14/16 20:59 Dose: 50 mg Tramadol HCl (Ultram) 50 mg PO Q6 PRN PRN Reason: Pain, severe (8-10) Last Admin: 11/14/16 17:39 Dose: 50 mg Results - Vital Signs Recent Vital Signs: Last Vital Signs Temp 97.2 F L 11/15/16 06:00 Pulse 81 11/15/16 06:00 Resp 18 11/15/16 06:00 BP 123/79 11/15/16 06:00 Pulse Ox - Labs Result Diagrams: 11/13/16 07:22 Labs: Laboratory Results - last 24 hr 11/14/16 08:05 PT 20.6 H INR 2.0 H D Attending/Attestation - Attestation I have personally seen and examined this patient.: Yes I have fully participated in the care of the patient.: Yes I have reviewed all pertinent clinical information: Yes
--- NOTE | 2016-11-13 09:35 | PCM.PSYCH ---
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 Patient is very tearful on interview, reports excessive crying, thoughts of dying/wishing she were (no active plan), +CAH to kill herself, poor sleep, poor appetite, hopelessness/helplessness, poor concentration, low energy, anhedonia. PPHx: H/o tx w/ Dr. Denney, currently not on any medications, reports h/o tx with risperdal, seroquel, zoloft, lithium. Past medical history: HTN, CVA with L hemiplegia, CAD s/p CABG and aortic valve replacement, Bipolar disorder, hypothyroidism Past surgical history: breast lesions removed. benign as per patient, CABG, aortic valve replacement, hysterectomy for fibroids Allergies: NKDA Social history: Lives with . Denies drugs/ etoh. Current Medications: Active Medications Generic Name Dose Route Start Last Admin Trade Name Freq PRN Reason Stop Dose Admin Acetaminophen 650 mg 11/12/16 23:46 11/13/16 01:06 Tylenol 325mg Tab PO 650 mg Q4 PRN Administration Pain, moderate (4-7) Al Hydrox/Mg Hydrox/Simethicone 30 ml 11/12/16 23:46 Maalox Plus 30 Ml PO Q4 PRN Dyspepsia Atorvastatin Calcium 80 mg 11/13/16 22:00 Lipitor PO HS KATHLEEN Bismuth Subsalicylate 524 mg 11/12/16 23:46 Pepto-Bismol PO Q4 PRN Diarrhea Famotidine 20 mg 11/13/16 09:00 Pepcid PO DAILY KATHLEEN Ferrous Sulfate 325 mg 11/13/16 09:00 Feosol PO DAILY KATHLEEN Levothyroxine Sodium 175 mcg 11/13/16 06:30 Synthroid PO DAILY@0630 KATHLEEN Lisinopril 5 mg 11/13/16 09:00 Zestril PO DAILY KATHLEEN Lorazepam 0.5 mg 11/12/16 23:46 Ativan PO 11/26/16 23:47 HS PRN Insomnia Lorazepam 0.5 mg 11/12/16 23:46 Ativan PO 11/26/16 23:47 Q6 PRN Anixety/Agitation Magnesium Hydroxide 30 ml 11/12/16 23:46 Milk Of Magnesia PO HS PRN Constipation Metoprolol Tartrate 25 mg 11/13/16 09:00 Lopressor PO DAILY KATHLEEN Nortriptyline HCl 25 mg 11/13/16 09:00 Pamelor PO DAILY KATHLEEN Pantoprazole Sodium 40 mg 11/13/16 09:00 Protonix Ec Tab PO DAILY PRN Heartburn Potassium Chloride 40 meq 11/13/16 09:00 K-Dur 20 Meq Er Tab PO DAILY KATHLEEN Quetiapine Fumarate 25 mg 11/13/16 09:45 Seroquel PO Q12 KATHLEEN Warfarin Sodium 4 mg 11/13/16 17:00 Coumadin PO 11/13/16 17:01 QD5 COUNT INCLUDES THE [facility] Protocol Past Psychiatric History - Past Psychiatric History Previous Treatment History: Inpatient Pertinent Medical Hx (Current Medical&Sleep Prob, Allergies): Allergies Allergy/AdvReac Type Severity Reaction Status Date / Time No Known Allergies Allergy Verified 05/09/16 01:51 Levothyroxine [Synthroid] 175 mcg PO DAILY 08/13/15 Ferrous Sulfate [Feosol] 325 mg PO DAILY 11/22/15 Atorvastatin [Lipitor] 80 mg PO QPM 12/01/15 Pantoprazole Sodium [Protonix] 40 mg PO DAILY PRN 12/01/15 Famotidine [Pepcid] 20 mg PO DAILY 11/08/16 Lisinopril [Prinivil] 5 mg PO DAILY 11/08/16 Metoprolol Tartrate [Lopressor] 25 mg PO DAILY 11/08/16 Nortriptyline HCl [Pamelor] 25 mg PO DAILY 11/08/16 Potassium Chloride 10 meq PO DAILY 11/08/16 Potassium Chloride [K-Dur 20 mEq ER Tab] 40 meq PO DAILY tab 11/12/16 Warfarin [Coumadin] 4 mg PO QAM 11/13/16 Review of Systems - Psychiatric Psychiatric: As Per HPI, Abnormal Sleep Pattern, Anhedonia, Auditory Hallucinations, Behavioral Changes, Change in Appetite, Depression, Difficulty Concentrating, Hallucinations, Hopelessness, Irritability, Mood Swings, Suicidal Ideation Mental Status Examination - Personal Presentation Personal Presentation: Looks stated age - Affect Affect: Depressed - Motor Activity Motor Activity: Psychomotor Retardation - Reliability in Providing Information Reliability in Providing Information: Fair - Speech Speech: Organized, Coherent - Mood Mood: Depressed - Formal Thought Process Formal Thought Process: Hallucinations - Hallucinations/Delusions Hallucinations: Auditory (CAH to kill herself) - Obsessions/Compulsions Obsessions: No Compulsions: No - Cognitive Functions Orientation: Person, Place, Situation, Time Sensorium: Alert Attention/Concentration: Attentive Estimate of Intelligence: Average Judgement: Intact, as evidence by: Insight regarding need for hospitalization Memory: Recent intact, as evidence by: Ability to recall events of the day - Risk Risk: Suicidal, Diminished functioning - Strength & Assets Inventory Strength & Assets Inventory: Family support, Cooperative DSM 5 DX - DSM 5 DSM 5 Diagnosis: Bipolar Disorder - Recommended/Plan of Treatment Treatment Recommendations and Plan of Treatment: Bipolar Disorder; patient requires acute inpatient admission for treatment, safety and stabilization. -Admit to psychiatry unit -Medicine consult -Start Seroquel 25 mg PO Q12 and titrate as clinically indicated -Individual and group therapy -Disposition planning -No 1:1 indicated at this time, patient is able to contract for safety Projected ELOS: 3-7 days Discharge Plan and Discharge Criteria: Discharge when psychiatrically stable - Smoking Cessation Smoking Cessation Initiated: No Reason for not providing: Not indicated
[2016-11-13 12:31] LABS: FOLATE 5.5 ng/mL
[2016-11-13] MEDS: Enoxaparin 80 mg Syringe SC SCH ×2 (17:22→21:10)
[2016-11-14] MEDS: Levothyroxine 150 MCG TAB PO SCH (06:20)
[2016-11-14] MEDS: Enoxaparin 80 mg Syringe SC SCH ×2 (08:13→21:11)
--- NOTE | 2016-11-14 12:42 | CP.PCM.PN ---
<Eduardo Perez - Last Filed: 11/14/16 12:43> Subjective - Date & Time of Evaluation Date of Evaluation: 11/14/16 Time of Evaluation: 07:40 - Subjective Subjective: No overnight events. Patient seen and examined bedside with Dr. Ellison. She feels 'ok'. Encouraged participation in therapy and activities. Patient voiced understanding. No new complaints offered. Ecchymosis of left mandible is extending but appears to be healing. Otherwise unremarkable exam. Objective - Vital Signs/Intake and Output Vital Signs (last 24 hours): Temp Pulse Resp BP Pulse Ox 97.2 F L 74 18 136/85 11/14/16 06:00 11/14/16 08:23 11/14/16 06:00 11/14/16 11:00 - Medications Medications: Current Medications Acetaminophen (Tylenol 325mg Tab) 650 mg PO Q4 PRN PRN Reason: Pain, moderate (4-7) Last Admin: 11/13/16 01:06 Dose: 650 mg Al Hydrox/Mg Hydrox/Simethicone (Maalox Plus 30 Ml) 30 ml PO Q4 PRN PRN Reason: Dyspepsia Atorvastatin Calcium (Lipitor) 80 mg PO HS [facility] Last Admin: 11/13/16 21:10 Dose: 80 mg Bismuth Subsalicylate (Pepto-Bismol) 524 mg PO Q4 PRN PRN Reason: Diarrhea Enoxaparin Sodium (Lovenox) 70 mg SC Q12 KATHLEEN PRN Reason: Protocol Last Admin: 11/14/16 08:13 Dose: 70 mg Famotidine (Pepcid) 20 mg PO DAILY [facility] Last Admin: 11/14/16 08:10 Dose: 20 mg Ferrous Sulfate (Feosol) 325 mg PO DAILY [facility] Last Admin: 11/14/16 08:09 Dose: 325 mg Levothyroxine Sodium (Synthroid) 150 mcg PO DAILY@0630 [facility] Last Admin: 11/14/16 06:20 Dose: 150 mcg Lisinopril (Zestril) 5 mg PO DAILY [facility] Last Admin: 11/14/16 08:23 Dose: Not Given Lorazepam (Ativan) 0.5 mg PO HS PRN PRN Reason: Insomnia Stop: 11/26/16 23:47 Lorazepam (Ativan) 0.5 mg PO Q6 PRN PRN Reason: Anixety/Agitation Stop: 11/26/16 23:47 Magnesium Hydroxide (Milk Of Magnesia) 30 ml PO HS PRN PRN Reason: Constipation Metoprolol Tartrate (Lopressor) 25 mg PO DAILY [facility] Last Admin: 11/14/16 08:21 Dose: Not Given Quetiapine Fumarate (Seroquel) 50 mg PO Q12 KATHLEEN Tramadol HCl (Ultram) 50 mg PO Q6 PRN PRN Reason: Pain, severe (8-10) Last Admin: 11/13/16 18:03 Dose: 50 mg Warfarin Sodium (Coumadin) 4 mg PO QD5 KATHLEEN PRN Reason: Protocol Stop: 11/14/16 17:01 - Labs Labs: 11/13/16 07:22 PT 20.6 Seconds (9.8-13.1) H 11/14/16 08:05 INR 2.0 (0.9-1.2) H D 11/14/16 08:05 - Constitutional Appears: Other (appears tired ) - Head Exam Additional comments: ecchymosis of left mandible - Eye Exam Eye Exam: Normal appearance - ENT Exam ENT Exam: Mucous Membranes Moist - Respiratory Exam Respiratory Exam: Clear to Ausculation Bilateral, NORMAL BREATHING PATTERN - Cardiovascular Exam Cardiovascular Exam: REGULAR RHYTHM, +S1, +S2 - GI/Abdominal Exam GI & Abdominal Exam: Soft. absent: Distended, Tenderness - Extremities Exam Additional comments: left sided hemiplegia - Neurological Exam Neurological Exam: CN II-XII Intact Additional comments: sleeping but arousable. - Psychiatric Exam Psychiatric exam: Depressed - Skin Skin Exam: Dry, Intact Assessment and Plan - Assessment and Plan (Free Text) Assessment: 56 year old female admitted for inpatient management of bipolar depression with suicidal ideation, previously admitted for coumadin toxicity with coagulopathy. INR is subtherapeutic, however will continue with Warfarin 4mg for now, INR improving, will continue with same dose for now. #Subtherapeutic INR: -INR 1.5, trending up, but not at goal: 2.5-3.5 -continue with warfarin 4mg -repeat INR in AM #Bipolar depression: - management as per psychiatry - seroquel #Hx of Aortic valve replacement: -needs INR 2.5-3.5, on therapeutic anticoagulation #HTN: -controlled with lisinopril 5mg, Metoprolol 25mg, Lipitor 80mg #CVA with left sided hemiplegia -as per previous pt documentation, not candidate for skilled pt -will have ot reeval. #Hypothyroidism: -TSH: 0.06, Free t4: 1.86, Total T4: 19.4 -Start Levothyroxine 150 mcg (11/14) -will need repeat as outpatient. DVT Prophylaxis: -on therapeutic anticoagulation with lovenox 70mg q12 <Simba Ellison A - Last Filed: 11/16/16 07:00> Objective - Vital Signs/Intake and Output Vital Signs (last 24 hours): Temp Pulse Resp BP Pulse Ox 97.5 F L 80 20 95/59 L 11/16/16 05:35 11/16/16 05:35 11/16/16 05:35 11/16/16 05:35 - Medications Medications: Current Medications Acetaminophen (Tylenol 325mg Tab) 650 mg PO Q4 PRN PRN Reason: Pain, moderate (4-7) Last Admin: 11/13/16 01:06 Dose: 650 mg Al Hydrox/Mg Hydrox/Simethicone (Maalox Plus 30 Ml) 30 ml PO Q4 PRN PRN Reason: Dyspepsia Atorvastatin Calcium (Lipitor) 80 mg PO HS [facility] Last Admin: 11/15/16 21:07 Dose: 80 mg Bismuth Subsalicylate (Pepto-Bismol) 524 mg PO Q4 PRN PRN Reason: Diarrhea Last Admin: 11/14/16 20:45 Dose: 524 mg Famotidine (Pepcid) 20 mg PO DAILY [facility] Last Admin: 11/15/16 08:57 Dose: 20 mg Ferrous Sulfate (Feosol) 325 mg PO DAILY [facility] Last Admin: 11/15/16 08:58 Dose: 325 mg Levothyroxine Sodium (Synthroid) 150 mcg PO DAILY@0630 [facility] Last Admin: 11/16/16 06:25 Dose: 150 mcg Lisinopril (Zestril) 5 mg PO DAILY [facility] Last Admin: 11/15/16 08:56 Dose: 5 mg Lorazepam (Ativan) 0.5 mg PO HS PRN PRN Reason: Insomnia Stop: 11/26/16 23:47 Lorazepam (Ativan) 0.5 mg PO Q6 PRN PRN Reason: Anixety/Agitation Stop: 11/26/16 23:47 Magnesium Hydroxide (Milk Of Magnesia) 30 ml PO HS PRN PRN Reason: Constipation Metoprolol Tartrate (Lopressor) 25 mg PO DAILY [facility] Last Admin: 11/15/16 08:57 Dose: 25 mg Quetiapine Fumarate (Seroquel) 150 mg PO HS [facility] Last Admin: 11/15/16 21:08 Dose: 150 mg Tramadol HCl (Ultram) 50 mg PO Q6 PRN PRN Reason: Pain, severe (8-10) Last Admin: 11/14/16 17:39 Dose: 50 mg - Labs Labs: 11/13/16 07:22 PT 25.7 Seconds (9.8-13.1) H D 11/15/16 06:30 INR 2.5 (0.9-1.2) H D 11/15/16 06:30 Attending/Attestation - Attestation I have personally seen and examined this patient.: Yes I have fully participated in the care of the patient.: Yes I have reviewed all pertinent clinical information, including history, physical exam and plan: Yes
--- NOTE | 2016-11-14 21:21 | PCM.PYCHPN ---
Psychiatric Progress Note - Psychiatric Progress Note Patient seen today, length of contact: chart reviewed case discussed with team Patient Chief Complaint: feeling down depressed because of all my health problems and i am week on one side Problems Identified/Issues Discussed: alteration in mood alteration in level of function alteration in self care alteration in coagulation ecchymosis jaw resolving Medical Problems: per chart Diagnostic Results: per psychiatry per medicine per nursing per social work DSM 5 Symptoms Update: anhedonia, sadness, tearfulness Medication Change: No Medical Record Reviewed: Yes Consults ordered or reviewed: pt being followed by dr trevizo/family practice resident Mental Status Examination - Cognitive Function Orientation: Person, Place, Situation, Time Attention: WNL Concentration: WNL Association: WNL Fund of Knowledge: WN Decription of patient's judgement and insights: impaired - Mood Mood: Depressed - Affect Affect: Depressed Additional comments: tearful at times when reflecting on changes in lof-denies suicidal ideations - Formal Thought Process Formal Thought Process: Hallucinations - Homicidal Ideation Homicidal Ideation: No Goal/Treatment Plan - Goal/Treatment Plan Need for Continued Stay: Remain at risks for inpatient hospitalization, Severe depression anxiety, Discharge may exacerbated symptoms, Failed transitioning, Severe functional impairment Progress Toward Problem(s) and Goals/Treatment Plan: inpt milieu adjust meds per status vital signs/clinical observation per protocol and status falls precautions/bleeding precautions (hypercoagulation) discharge planning in progress Estimated Date of D/C: 11/20/16 - Smoking Cessation Smoking Cessation Initiated: No Reason for not providing: pt deferred
[2016-11-15] MEDS: Levothyroxine 150 MCG TAB PO SCH (06:18)
--- NOTE | 2016-11-15 07:44 | CP.PCM.PN ---
<Eduardo Perez - Last Filed: 11/15/16 11:25> Subjective - Date & Time of Evaluation Date of Evaluation: 11/15/16 Time of Evaluation: 07:00 - Subjective Subjective: No overnight events. Patient continues to be depressed, but appears slightly more alert and responsive. Encouraged her participation in therapy. INR is 2.5 today, continue with warfarin 4mg daily, continue to follow INR, goal is 2.5-3.5. Lovenox discontinued today. Objective - Vital Signs/Intake and Output Vital Signs (last 24 hours): Temp Pulse Resp BP Pulse Ox 97.2 F L 81 18 123/79 11/15/16 06:00 11/15/16 06:00 11/15/16 06:00 11/15/16 06:00 - Medications Medications: Current Medications Acetaminophen (Tylenol 325mg Tab) 650 mg PO Q4 PRN PRN Reason: Pain, moderate (4-7) Last Admin: 11/13/16 01:06 Dose: 650 mg Al Hydrox/Mg Hydrox/Simethicone (Maalox Plus 30 Ml) 30 ml PO Q4 PRN PRN Reason: Dyspepsia Atorvastatin Calcium (Lipitor) 80 mg PO HS [facility] Last Admin: 11/14/16 20:59 Dose: 80 mg Bismuth Subsalicylate (Pepto-Bismol) 524 mg PO Q4 PRN PRN Reason: Diarrhea Last Admin: 11/14/16 20:45 Dose: 524 mg Enoxaparin Sodium (Lovenox) 70 mg SC Q12 KTAHLEEN PRN Reason: Protocol Last Admin: 11/14/16 21:11 Dose: 70 mg Famotidine (Pepcid) 20 mg PO DAILY [facility] Last Admin: 11/14/16 08:10 Dose: 20 mg Ferrous Sulfate (Feosol) 325 mg PO DAILY [facility] Last Admin: 11/14/16 08:09 Dose: 325 mg Levothyroxine Sodium (Synthroid) 150 mcg PO DAILY@0630 [facility] Last Admin: 11/15/16 06:18 Dose: 150 mcg Lisinopril (Zestril) 5 mg PO DAILY [facility] Last Admin: 11/14/16 08:23 Dose: Not Given Lorazepam (Ativan) 0.5 mg PO HS PRN PRN Reason: Insomnia Stop: 11/26/16 23:47 Lorazepam (Ativan) 0.5 mg PO Q6 PRN PRN Reason: Anixety/Agitation Stop: 11/26/16 23:47 Magnesium Hydroxide (Milk Of Magnesia) 30 ml PO HS PRN PRN Reason: Constipation Metoprolol Tartrate (Lopressor) 25 mg PO DAILY [facility] Last Admin: 11/14/16 08:21 Dose: Not Given Quetiapine Fumarate (Seroquel) 50 mg PO Q12 [facility] Last Admin: 11/14/16 20:59 Dose: 50 mg Tramadol HCl (Ultram) 50 mg PO Q6 PRN PRN Reason: Pain, severe (8-10) Last Admin: 11/14/16 17:39 Dose: 50 mg - Labs Labs: 11/13/16 07:22 PT 20.6 Seconds (9.8-13.1) H 11/14/16 08:05 INR 2.0 (0.9-1.2) H D 11/14/16 08:05 - Head Exam Head Exam: NORMAL INSPECTION, NORMOCEPHALIC Additional comments: ecchymosis of left mandible - Eye Exam Eye Exam: Normal appearance - ENT Exam ENT Exam: Mucous Membranes Moist - Respiratory Exam Respiratory Exam: NORMAL BREATHING PATTERN - Cardiovascular Exam Cardiovascular Exam: REGULAR RHYTHM, +S1, +S2 - GI/Abdominal Exam GI & Abdominal Exam: absent: Distended, Guarding, Tenderness - Extremities Exam Extremities Exam: absent: Pedal Edema, Tenderness - Neurological Exam Neurological Exam: Alert, Awake, CN II-XII Intact - Psychiatric Exam Psychiatric exam: Depressed - Skin Skin Exam: Dry Additional comments: ecchymosis of left mandible/neck Assessment and Plan - Assessment and Plan (Free Text) Assessment: 56 year old female admitted for inpatient management of bipolar depression with suicidal ideation, previously admitted for coumadin toxicity with coagulopathy. INR :2.5 will continue warfain 4mg. Will d/c therapeutic lovenox today. #Subtherapeutic INR: -resolved -INR 2.5, goal: 2.5-3.5 -continue with warfarin 4mg -repeat INR in AM #Bipolar depression: - management as per psychiatry - seroquel increased to 150mg BID #Hx of Aortic valve replacement: -INR 2.5 #HTN: -controlled with lisinopril 5mg, Metoprolol 25mg, Lipitor 80mg #CVA with left sided hemiplegia -as per previous pt documentation, not candidate for skilled pt -will have pt/ot reeval. -would benefit from home services #Hypothyroidism: -TSH: 0.06, Free t4: 1.86, Total T4: 19.4 -Start Levothyroxine 150 mcg (11/14) -will need repeat as outpatient. DVT Prophylaxis: -on warfarin <Brad Peacock - Last Filed: 11/20/16 06:54> Objective - Vital Signs/Intake and Output Vital Signs (last 24 hours): Temp Pulse Resp BP Pulse Ox 98.2 F 78 18 105/66 11/20/16 05:27 11/20/16 05:27 11/20/16 05:27 11/20/16 05:27 - Medications Medications: Current Medications Acetaminophen (Tylenol 325mg Tab) 650 mg PO Q4 PRN PRN Reason: Pain, moderate (4-7) Last Admin: 11/13/16 01:06 Dose: 650 mg Al Hydrox/Mg Hydrox/Simethicone (Maalox Plus 30 Ml) 30 ml PO Q4 PRN PRN Reason: Dyspepsia Last Admin: 11/18/16 19:36 Dose: 30 ml Atorvastatin Calcium (Lipitor) 80 mg PO HS KATHLEEN Last Admin: 11/19/16 21:06 Dose: 80 mg Bismuth Subsalicylate (Pepto-Bismol) 524 mg PO Q4 PRN PRN Reason: Diarrhea Last Admin: 11/14/16 20:45 Dose: 524 mg Famotidine (Pepcid) 20 mg PO DAILY [facility] Last Admin: 11/19/16 08:46 Dose: 20 mg Ferrous Sulfate (Feosol) 325 mg PO DAILY [facility] Last Admin: 11/19/16 08:47 Dose: 325 mg Levothyroxine Sodium (Synthroid) 150 mcg PO DAILY@0630 [facility] Last Admin: 11/20/16 05:33 Dose: 150 mcg Lisinopril (Zestril) 5 mg PO DAILY [facility] Last Admin: 11/19/16 08:47 Dose: Not Given Lorazepam (Ativan) 0.5 mg PO HS PRN PRN Reason: Insomnia Stop: 11/26/16 23:47 Lorazepam (Ativan) 0.5 mg PO Q6 PRN PRN Reason: Anixety/Agitation Stop: 11/26/16 23:47 Magnesium Hydroxide (Milk Of Magnesia) 30 ml PO HS PRN PRN Reason: Constipation Metoprolol Tartrate (Lopressor) 12.5 mg PO DAILYWM KATHLEEN Quetiapine Fumarate (Seroquel) 400 mg PO HS KATHLEEN Last Admin: 11/19/16 21:06 Dose: 400 mg Tramadol HCl (Ultram) 50 mg PO Q6 PRN PRN Reason: Pain, severe (8-10) Last Admin: 11/19/16 20:40 Dose: 50 mg - Labs Labs: 11/17/16 07:45 11/17/16 11:20 PT 27.9 Seconds (9.8-13.1) H D 11/20/16 05:15 INR 2.7 (0.9-1.2) H D 11/20/16 05:15 Attending/Attestation - Attestation I have personally seen and examined this patient.: Yes I have fully participated in the care of the patient.: Yes I have reviewed all pertinent clinical information, including history, physical exam and plan: Yes
--- NOTE | 2016-11-15 10:59 | PCM.PYCHPN ---
Psychiatric Progress Note - Psychiatric Progress Note Patient seen today, length of contact: Patient evaluated, chart reviewed, case discussed with team, 35 min Patient Chief Complaint: "I'm depressed." Problems Identified/Issues Discussed: Patient is very tearful on interview. She continues to report severe depression. She denies current AH. She has low energy/concentration and sleep disturbances. We discussed the importance of compliance w/ treatment and medications following discharge. Medication Change: Yes (Increase Seroquel to 150 mg PO HS) Medical Record Reviewed: Yes Mental Status Examination - Cognitive Function Orientation: Person, Place, Situation, Time Memory: Intact Attention: WNL Concentration: WNL Association: [facility] Fund of Knowledge: [facility] Decription of patient's judgement and insights: Fair I/J - Mood Mood: Depressed - Affect Affect: Depressed - Speech Speech: Appropriate - Formal Thought Process Formal Thought Process: No Impairment Psychotic Thoughts and Behaviors: NO AH/VH/paranoia/delusions - Suicidal Ideation Suicidal Ideation: No - Homicidal Ideation Homicidal Ideation: No Goal/Treatment Plan - Goal/Treatment Plan Need for Continued Stay: Remain at risks for inpatient hospitalization, Severe depression anxiety, Discharge may exacerbated symptoms Progress Toward Problem(s) and Goals/Treatment Plan: Bipolar Disorder; patient continues to report severe depression. She requires acute inpatient admission for treatment, safety and stabilization. -Medicine consult appreciated -Increase Seroquel to 150 mg PO HS -Individual and group therapy -Disposition planning -No 1:1 indicated at this time, patient is able to contract for safety Estimated Date of D/C: 11/20/16 - Smoking Cessation Smoking Cessation Initiated: No Reason for not providing: Not indicated
[2016-11-15] MEDS: Enoxaparin 80 mg Syringe SC SCH (17:32)
[2016-11-16] MEDS: Levothyroxine 150 MCG TAB PO SCH (06:25)
--- NOTE | 2016-11-16 13:36 | PCM.PYCHPN ---
Psychiatric Progress Note - Psychiatric Progress Note Patient seen today, length of contact: Patient evaluated, chart reviewed, case discussed with team, 35 min Patient Chief Complaint: "I'm depressed." Problems Identified/Issues Discussed: Patient continues to be depressed and tearful. She denies current AH. She has low energy/concentration and sleep disturbances. We discussed continued titration of seroquel. Medication Change: Yes (Increase Seroquel to 200 mg PO HS) Medical Record Reviewed: Yes Mental Status Examination - Cognitive Function Orientation: Person, Place, Situation, Time Memory: Intact Attention: WNL Concentration: WNL Association: WNL Fund of Knowledge: [facility] Decription of patient's judgement and insights: Fair I/J - Mood Mood: Depressed - Affect Affect: Depressed - Speech Speech: Appropriate - Formal Thought Process Formal Thought Process: No Impairment Psychotic Thoughts and Behaviors: NO AH/VH/paranoia/delusions - Suicidal Ideation Suicidal Ideation: No - Homicidal Ideation Homicidal Ideation: No Goal/Treatment Plan - Goal/Treatment Plan Need for Continued Stay: Remain at risks for inpatient hospitalization, Severe depression anxiety, Discharge may exacerbated symptoms Progress Toward Problem(s) and Goals/Treatment Plan: Bipolar Disorder; patient continues to report severe depression. She requires acute inpatient admission for treatment, safety and stabilization. -Medicine consult appreciated -Increase Seroquel to 200 mg PO HS; will continue to titrate as clinically indicated -Individual and group therapy -Disposition planning -No 1:1 indicated at this time, patient is able to contract for safety Estimated Date of D/C: 11/20/16 - Smoking Cessation Smoking Cessation Initiated: No Reason for not providing: Not indicated
--- NOTE | 2016-11-16 15:40 | CP.PCM.PN ---
<Marian Browne - Last Filed: 11/16/16 15:37> Subjective - Date & Time of Evaluation Date of Evaluation: 11/16/16 Time of Evaluation: 07:05 - Subjective Subjective: patient seen and examined with attending in Psych unit patient feels well this morning Denies Cp, SOB, cough, N/V, abdominal pain, diarrheas no events overnight INR is 2.6 today, continue with warfarin 4 mg daily, continue to follow INR next day, goal is 2.5-3.5. Objective - Vital Signs/Intake and Output Vital Signs (last 24 hours): Temp Pulse Resp BP Pulse Ox 97.5 F L 90 20 136/86 11/16/16 05:35 11/16/16 12:55 11/16/16 05:35 11/16/16 12:55 - Medications Medications: Current Medications Acetaminophen (Tylenol 325mg Tab) 650 mg PO Q4 PRN PRN Reason: Pain, moderate (4-7) Last Admin: 11/13/16 01:06 Dose: 650 mg Al Hydrox/Mg Hydrox/Simethicone (Maalox Plus 30 Ml) 30 ml PO Q4 PRN PRN Reason: Dyspepsia Atorvastatin Calcium (Lipitor) 80 mg PO HS [facility] Last Admin: 11/15/16 21:07 Dose: 80 mg Bismuth Subsalicylate (Pepto-Bismol) 524 mg PO Q4 PRN PRN Reason: Diarrhea Last Admin: 11/14/16 20:45 Dose: 524 mg Famotidine (Pepcid) 20 mg PO DAILY [facility] Last Admin: 11/16/16 09:06 Dose: 20 mg Ferrous Sulfate (Feosol) 325 mg PO DAILY [facility] Last Admin: 11/16/16 09:06 Dose: 325 mg Levothyroxine Sodium (Synthroid) 150 mcg PO DAILY@0630 [facility] Last Admin: 11/16/16 06:25 Dose: 150 mcg Lisinopril (Zestril) 5 mg PO DAILY [facility] Last Admin: 11/16/16 12:55 Dose: 5 mg Lorazepam (Ativan) 0.5 mg PO HS PRN PRN Reason: Insomnia Stop: 11/26/16 23:47 Lorazepam (Ativan) 0.5 mg PO Q6 PRN PRN Reason: Anixety/Agitation Stop: 11/26/16 23:47 Magnesium Hydroxide (Milk Of Magnesia) 30 ml PO HS PRN PRN Reason: Constipation Metoprolol Tartrate (Lopressor) 25 mg PO DAILY [facility] Last Admin: 11/16/16 12:54 Dose: 25 mg Quetiapine Fumarate (Seroquel) 200 mg PO HS [facility] Tramadol HCl (Ultram) 50 mg PO Q6 PRN PRN Reason: Pain, severe (8-10) Last Admin: 11/14/16 17:39 Dose: 50 mg Warfarin Sodium (Coumadin) 4 mg PO ONCE ONE PRN Reason: Protocol Stop: 11/16/16 17:01 - Labs Labs: 11/13/16 07:22 PT 27.1 Seconds (9.8-13.1) H 11/16/16 06:30 INR 2.6 (0.9-1.2) H 11/16/16 06:30 - Constitutional Appears: No Acute Distress - Head Exam Additional comments: ecchymosis of left mandible/neck - ENT Exam ENT Exam: Mucous Membranes Moist - Respiratory Exam Respiratory Exam: Clear to Ausculation Bilateral, NORMAL BREATHING PATTERN. absent: Chest Wall Tenderness - Cardiovascular Exam Cardiovascular Exam: REGULAR RHYTHM, +S1, +S2 - GI/Abdominal Exam GI & Abdominal Exam: Soft, Normal Bowel Sounds. absent: Distended, Guarding, Rigid, Tenderness - Extremities Exam Extremities Exam: Normal Inspection. absent: Calf Tenderness, Pedal Edema - Neurological Exam Neurological Exam: Alert, Awake, Oriented x3 - Psychiatric Exam Psychiatric exam: Normal Affect - Skin Skin Exam: Dry, Intact, Normal Color Assessment and Plan - Assessment and Plan (Free Text) Assessment: 56 year old female admitted for inpatient management of bipolar depression with suicidal ideation, previously admitted for coumadin toxicity . INR :2.6 will continue warfain 4mg. s/p therapeutic lovenox. Plan: Subtherapeutic INR: -resolved -INR 2.6, goal: 2.5-3.5 -continue with warfarin 4mg -repeat INR in AM Bipolar depression: - management as per psychiatry - seroquel increased to 150mg BID Hx of Aortic valve replacement -INR 2.6 HTN: -controlled with lisinopril 5mg, Metoprolol 25mg, Lipitor 80mg h/o CVA with left sided hemiplegia -as per previous pt documentation, not candidate for skilled pt -will have pt/ot reeval. -would benefit from home services Hypothyroidism: -TSH: 0.06, Free t4: 1.86, Total T4: 19.4 -c/w Levothyroxine 150 mcg (11/14) -will need repeat as outpatient. DVT Prophylaxis: -on warfarin <Simba Cloud - Last Filed: 11/20/16 07:11> Objective - Vital Signs/Intake and Output Vital Signs (last 24 hours): Temp Pulse Resp BP Pulse Ox 98.2 F 78 18 105/66 11/20/16 05:27 11/20/16 05:27 11/20/16 05:27 11/20/16 05:27 - Medications Medications: Current Medications Acetaminophen (Tylenol 325mg Tab) 650 mg PO Q4 PRN PRN Reason: Pain, moderate (4-7) Last Admin: 11/13/16 01:06 Dose: 650 mg Al Hydrox/Mg Hydrox/Simethicone (Maalox Plus 30 Ml) 30 ml PO Q4 PRN PRN Reason: Dyspepsia Last Admin: 11/18/16 19:36 Dose: 30 ml Atorvastatin Calcium (Lipitor) 80 mg PO HS [facility] Last Admin: 11/19/16 21:06 Dose: 80 mg Bismuth Subsalicylate (Pepto-Bismol) 524 mg PO Q4 PRN PRN Reason: Diarrhea Last Admin: 11/14/16 20:45 Dose: 524 mg Famotidine (Pepcid) 20 mg PO DAILY [facility] Last Admin: 11/19/16 08:46 Dose: 20 mg Ferrous Sulfate (Feosol) 325 mg PO DAILY [facility] Last Admin: 11/19/16 08:47 Dose: 325 mg Levothyroxine Sodium (Synthroid) 150 mcg PO DAILY@0630 [facility] Last Admin: 11/20/16 05:33 Dose: 150 mcg Lisinopril (Zestril) 5 mg PO DAILY [facility] Last Admin: 11/19/16 08:47 Dose: Not Given Lorazepam (Ativan) 0.5 mg PO HS PRN PRN Reason: Insomnia Stop: 11/26/16 23:47 Lorazepam (Ativan) 0.5 mg PO Q6 PRN PRN Reason: Anixety/Agitation Stop: 11/26/16 23:47 Magnesium Hydroxide (Milk Of Magnesia) 30 ml PO HS PRN PRN Reason: Constipation Metoprolol Tartrate (Lopressor) 12.5 mg PO DAILYWM [facility] Quetiapine Fumarate (Seroquel) 400 mg PO HS [facility] Last Admin: 11/19/16 21:06 Dose: 400 mg Tramadol HCl (Ultram) 50 mg PO Q6 PRN PRN Reason: Pain, severe (8-10) Last Admin: 11/19/16 20:40 Dose: 50 mg - Labs Labs: 11/17/16 07:45 11/17/16 11:20 PT 27.9 Seconds (9.8-13.1) H D 11/20/16 05:15 INR 2.7 (0.9-1.2) H D 11/20/16 05:15 Attending/Attestation - Attestation I have personally seen and examined this patient.: Yes I have fully participated in the care of the patient.: Yes I have reviewed all pertinent clinical information, including history, physical exam and plan: Yes
[2016-11-17] MEDS: Levothyroxine 150 MCG TAB PO SCH (06:40)
[2016-11-17 08:03] LABS: HEMATOCRIT 35.7 % (34.0-47.0); MEAN CELL VOLUME 89.6 fl (81.0-99.0); MEAN CORPUSCULAR HEMOGLOBIN 30.1 pg (27.0-31.0); MEAN CORPUSCULAR HGB CONC 33.6 g/dL (33.0-37.0); RED CELL DISTRIBUTION WIDTH 13.9 % (11.5-14.5); WHITE BLOOD COUNT 5.9 K/uL (4.8-10.8)
--- NOTE | 2016-11-17 09:37 | CP.PCM.PN ---
Subjective - Date & Time of Evaluation Date of Evaluation: 11/17/16 Time of Evaluation: 08:10 - Subjective Subjective: patient seen and examined in Psych unit this morning Reports poor appetite, but denies CP, SOB, N/V, abdominal pain pt is urinating w/o difficulties and having regular bowel movements. afebrile, BP slightly decreased INR is 3.1 today, continue with warfarin 4 mg daily, continue to follow INR next day, goal is 2.5-3.5. Objective - Vital Signs/Intake and Output Vital Signs (last 24 hours): Temp Pulse Resp BP Pulse Ox 97.3 F L 89 20 105/73 11/17/16 05:59 11/17/16 05:59 11/17/16 05:59 11/17/16 05:59 - Medications Medications: Current Medications Acetaminophen (Tylenol 325mg Tab) 650 mg PO Q4 PRN PRN Reason: Pain, moderate (4-7) Last Admin: 11/13/16 01:06 Dose: 650 mg Al Hydrox/Mg Hydrox/Simethicone (Maalox Plus 30 Ml) 30 ml PO Q4 PRN PRN Reason: Dyspepsia Atorvastatin Calcium (Lipitor) 80 mg PO HS [facility] Last Admin: 11/16/16 21:02 Dose: 80 mg Bismuth Subsalicylate (Pepto-Bismol) 524 mg PO Q4 PRN PRN Reason: Diarrhea Last Admin: 11/14/16 20:45 Dose: 524 mg Famotidine (Pepcid) 20 mg PO DAILY [facility] Last Admin: 11/16/16 09:06 Dose: 20 mg Ferrous Sulfate (Feosol) 325 mg PO DAILY [facility] Last Admin: 11/16/16 09:06 Dose: 325 mg Levothyroxine Sodium (Synthroid) 150 mcg PO DAILY@0630 [facility] Last Admin: 11/17/16 06:40 Dose: 150 mcg Lisinopril (Zestril) 5 mg PO DAILY [facility] Lorazepam (Ativan) 0.5 mg PO HS PRN PRN Reason: Insomnia Stop: 11/26/16 23:47 Lorazepam (Ativan) 0.5 mg PO Q6 PRN PRN Reason: Anixety/Agitation Stop: 11/26/16 23:47 Magnesium Hydroxide (Milk Of Magnesia) 30 ml PO HS PRN PRN Reason: Constipation Quetiapine Fumarate (Seroquel) 200 mg PO HS [facility] Last Admin: 11/16/16 21:02 Dose: 200 mg Tramadol HCl (Ultram) 50 mg PO Q6 PRN PRN Reason: Pain, severe (8-10) Last Admin: 11/14/16 17:39 Dose: 50 mg Warfarin Sodium (Coumadin) 4 mg PO ONCE ONE PRN Reason: Protocol Stop: 11/17/16 17:01 - Labs Labs: 11/17/16 07:45 11/13/16 07:22 PT 33.0 Seconds (9.8-13.1) H D 11/17/16 07:45 INR 3.1 (0.9-1.2) H 11/17/16 07:45 - Constitutional Appears: No Acute Distress - ENT Exam ENT Exam: Mucous Membranes Moist - Respiratory Exam Respiratory Exam: Clear to Ausculation Bilateral, NORMAL BREATHING PATTERN - Cardiovascular Exam Cardiovascular Exam: REGULAR RHYTHM, +S1, +S2 - GI/Abdominal Exam GI & Abdominal Exam: Soft, Normal Bowel Sounds. absent: Distended, Firm, Guarding, Tenderness - Extremities Exam Extremities Exam: Normal Inspection. absent: Calf Tenderness, Pedal Edema - Neurological Exam Neurological Exam: Alert, Awake, Oriented x3 Assessment and Plan - Assessment and Plan (Free Text) Assessment: 56 year old female admitted for inpatient management of bipolar depression with suicidal ideation, previously admitted for coumadin toxicity . INR :3.1 will continue warfain 4mg. s/p therapeutic lovenox. Plan: Subtherapeutic INR: -resolved -INR 3.1, goal: 2.5-3.5 -continue with warfarin 4mg -repeat INR in AM Bipolar depression: - management as per psychiatry - Seroquel increased to 150 mg BID Hx of Aortic valve replacement -INR 3.1 HTN: -controlled Held lisinopril 5mg, Metoprolol 25mg because low BP levels Hold meds if BP is < 110/60 c/w Lipitor 80mg for today f/u BP, consider dose adjustment of DC meds before discharge h/o CVA with left sided hemiplegia -as per previous pt documentation, not candidate for skilled pt -will have pt/ot reeval. -would benefit from home services Hypothyroidism: -TSH: 0.06, Free t4: 1.86, Total T4: 19.4 -c/w Levothyroxine 150 mcg (11/14) -will need repeat as outpatient. DVT Prophylaxis: -on warfarin
[2016-11-17 11:50] LABS: ALB/GLOB RATIO 1.6 (1.0-2.1); ALKALINE PHOSPHATASE 98 U/L (38-126); ALT/SGPT 106 U/L (9-52); AST/SGOT 53 U/L (14-36); BILIRUBIN,TOTAL 0.7 mg/dl (0.2-1.3); BLOOD UREA NITROGEN 12 mg/dl (7-17); CALCIUM 9.7 mg/dL (8.4-10.2); CARBON DIOXIDE 24 mmol/L (22-30); CHLORIDE 105 mmol/L (98-107); GFR AFRICAN-AMERICAN > 60; GLUCOSE,RANDOM 104 mg/dL (65-105); POTASSIUM 4.2 MMOL/L (3.6-5.0); SODIUM 138 mmol/l (132-148); TOTAL PROTEIN 6.3 G/DL (6.3-8.2)
--- NOTE | 2016-11-17 12:39 | PCM.PYCHPN ---
Psychiatric Progress Note - Psychiatric Progress Note Patient seen today, length of contact: discussed with team Patient Chief Complaint: no c/o Problems Identified/Issues Discussed: no c/o medication side effects. up eating with peers. no agitation. she is aware of medication changes. Medication Change: Yes (Increase Seroquel to 250 mg PO HS) Medical Record Reviewed: Yes Mental Status Examination - Cognitive Function Orientation: Person, Place, Situation, Time Memory: Intact Attention: WNL Concentration: WNL Association: WNL Fund of Knowledge: [facility] Decription of patient's judgement and insights: fair - Mood Mood: Depressed - Affect Affect: Depressed - Speech Speech: Appropriate - Formal Thought Process Formal Thought Process: No Impairment - Suicidal Ideation Suicidal Ideation: No - Homicidal Ideation Homicidal Ideation: No Goal/Treatment Plan - Goal/Treatment Plan Need for Continued Stay: Remain at risks for inpatient hospitalization, Severe depression anxiety, Discharge may exacerbated symptoms Progress Toward Problem(s) and Goals/Treatment Plan: bipolar disorder with psychosis continue current treatment increase seroquel to 250mg hs Estimated Date of D/C: 11/20/16
[2016-11-18] MEDS: Levothyroxine 150 MCG TAB PO SCH (06:21)
--- NOTE | 2016-11-18 10:01 | CP.PCM.PN ---
Subjective - Date & Time of Evaluation Date of Evaluation: 11/18/16 Time of Evaluation: 08:30 - Subjective Subjective: Pt seen and examined at bedside. Denies any acute overnight events, problems, or complaints. Otherwise, pt denies fevers/chills, n/v/d, chest pain, SOB, dyspnea, abdominal pain, hematuria, or dysuria. Objective - Vital Signs/Intake and Output Vital Signs (last 24 hours): Temp Pulse Resp BP Pulse Ox 97 F L 71 19 113/58 L 11/18/16 06:00 11/18/16 09:39 11/18/16 06:00 11/18/16 09:39 - Medications Medications: Current Medications Acetaminophen (Tylenol 325mg Tab) 650 mg PO Q4 PRN PRN Reason: Pain, moderate (4-7) Last Admin: 11/13/16 01:06 Dose: 650 mg Al Hydrox/Mg Hydrox/Simethicone (Maalox Plus 30 Ml) 30 ml PO Q4 PRN PRN Reason: Dyspepsia Atorvastatin Calcium (Lipitor) 80 mg PO HS [facility] Last Admin: 11/17/16 21:03 Dose: 80 mg Bismuth Subsalicylate (Pepto-Bismol) 524 mg PO Q4 PRN PRN Reason: Diarrhea Last Admin: 11/14/16 20:45 Dose: 524 mg Famotidine (Pepcid) 20 mg PO DAILY [facility] Last Admin: 11/18/16 09:37 Dose: 20 mg Ferrous Sulfate (Feosol) 325 mg PO DAILY [facility] Last Admin: 11/18/16 09:37 Dose: 325 mg Levothyroxine Sodium (Synthroid) 150 mcg PO DAILY@0630 [facility] Last Admin: 11/18/16 06:21 Dose: 150 mcg Lisinopril (Zestril) 5 mg PO DAILY [facility] Lorazepam (Ativan) 0.5 mg PO HS PRN PRN Reason: Insomnia Stop: 11/26/16 23:47 Lorazepam (Ativan) 0.5 mg PO Q6 PRN PRN Reason: Anixety/Agitation Stop: 11/26/16 23:47 Magnesium Hydroxide (Milk Of Magnesia) 30 ml PO HS PRN PRN Reason: Constipation [facility] Admin: 11/18/16 09:39 Dose: 25 mg Quetiapine Fumarate (Seroquel) 200 mg PO HS [facility] Last Admin: 11/17/16 21:04 Dose: 200 mg Quetiapine Fumarate (Seroquel) 50 mg PO HS [facility] Last Admin: 11/17/16 21:04 Dose: 50 mg Tramadol HCl (Ultram) 50 mg PO Q6 PRN PRN Reason: Pain, severe (8-10) Last Admin: 11/17/16 20:38 Dose: 50 mg - Labs Labs: 11/17/16 07:45 11/17/16 11:20 PT 45.8 Seconds (9.8-13.1) H* 11/18/16 07:30 INR 4.3 (0.9-1.2) H D 11/18/16 07:30 - Constitutional Appears: Non-toxic, No Acute Distress - Head Exam Head Exam: ATRAUMATIC, NORMOCEPHALIC - Respiratory Exam Respiratory Exam: Clear to Ausculation Bilateral, NORMAL BREATHING PATTERN - Cardiovascular Exam Cardiovascular Exam: REGULAR RHYTHM, +S1, +S2 - GI/Abdominal Exam GI & Abdominal Exam: Soft, Normal Bowel Sounds - Extremities Exam Extremities Exam: absent: Calf Tenderness, Pedal Edema - Neurological Exam Neurological Exam: Alert, Oriented x3 Assessment and Plan - Assessment and Plan (Free Text) Plan: 56 year old female admitted for inpatient management of bipolar depression with suicidal ideation, previously admitted for coumadin toxicity Supratherpeutic INR: -INR 4.3, goal: 2.5-3.5 -HOLD warfarn -repeat INR in AM Bipolar depression: - management as per psychiatry Hx of Aortic valve replacement -INR goal bw 2.5 - 3.5 HTN: -controlled Held lisinopril 5mg due to low BP Held Metoprolol 25mg because low BP f/u BP, consider dose adjustment of DC meds before discharge h/o CVA with left sided hemiplegia -as per previous pt documentation, not candidate for skilled pt -will have pt/ot reeval. -would benefit from home services Hypothyroidism: -TSH: 0.06, Free t4: 1.86, Total T4: 19.4 -c/w Levothyroxine 150 mcg (11/14) -will need repeat as outpatient. DVT Prophylaxis: -Warfarin 4mg HELD due to INR 4.3
--- NOTE | 2016-11-18 12:36 | PCM.PYCHPN ---
Psychiatric Progress Note - Psychiatric Progress Note Patient seen today, length of contact: discussed with team Patient Chief Complaint: no c/o Problems Identified/Issues Discussed: no c/o medication side effects. resting in bed now. covering MD aware of pt/inr results. Medication Change: Yes (Increase Seroquel to 300 mg PO HS) Medical Record Reviewed: Yes Mental Status Examination - Cognitive Function Orientation: Person, Place, Situation, Time Memory: Intact Attention: WNL Concentration: WNL Association: WNL Fund of Knowledge: [facility] Decription of patient's judgement and insights: fair - Mood Mood: Depressed - Affect Affect: Depressed - Speech Speech: Appropriate - Formal Thought Process Formal Thought Process: No Impairment - Suicidal Ideation Suicidal Ideation: No - Homicidal Ideation Homicidal Ideation: No Goal/Treatment Plan - Goal/Treatment Plan Need for Continued Stay: Remain at risks for inpatient hospitalization, Severe depression anxiety, Discharge may exacerbated symptoms Progress Toward Problem(s) and Goals/Treatment Plan: bipolar disorder with psychosis continue current treatment increase seroquel to 300mg hs medical covering md has ordered labs to follow up pt/inr results, warfarin held Estimated Date of D/C: 11/20/16
[2016-11-19] MEDS: Levothyroxine 150 MCG TAB PO SCH (06:30)
--- NOTE | 2016-11-19 07:35 | CP.PCM.PN ---
Subjective - Date & Time of Evaluation Date of Evaluation: 11/19/16 Time of Evaluation: 07:05 - Subjective Subjective: Patient seen and examined in Psych unit. Patient sleeping, but easy arousable Denies Cp, SOB, N/V, abdominal pain, diarrheas or any bleeding at this evaluation Still having BP in low levels Yesterday Coumadin 4 mg was held due supratherapeutic INR: 4.3 Today INR : 3.3, c/w coumadin 4 mg today Objective - Vital Signs/Intake and Output Vital Signs (last 24 hours): Temp Pulse Resp BP Pulse Ox 97.9 F 89 18 90/60 L 11/19/16 06:00 11/19/16 06:00 11/19/16 06:00 11/19/16 06:00 - Medications Medications: Current Medications Acetaminophen (Tylenol 325mg Tab) 650 mg PO Q4 PRN PRN Reason: Pain, moderate (4-7) Last Admin: 11/13/16 01:06 Dose: 650 mg Al Hydrox/Mg Hydrox/Simethicone (Maalox Plus 30 Ml) 30 ml PO Q4 PRN PRN Reason: Dyspepsia Last Admin: 11/18/16 19:36 Dose: 30 ml Atorvastatin Calcium (Lipitor) 80 mg PO HS [facility] Last Admin: 11/18/16 21:03 Dose: 80 mg Bismuth Subsalicylate (Pepto-Bismol) 524 mg PO Q4 PRN PRN Reason: Diarrhea Last Admin: 11/14/16 20:45 Dose: 524 mg Famotidine (Pepcid) 20 mg PO DAILY [facility] Last Admin: 11/18/16 09:37 Dose: 20 mg Ferrous Sulfate (Feosol) 325 mg PO DAILY [facility] Last Admin: 11/18/16 09:37 Dose: 325 mg Levothyroxine Sodium (Synthroid) 150 mcg PO DAILY@0630 [facility] Last Admin: 11/19/16 06:30 Dose: 150 mcg Lisinopril (Zestril) 5 mg PO DAILY [facility] Last Admin: 11/18/16 10:36 Dose: Not Given Lorazepam (Ativan) 0.5 mg PO HS PRN PRN Reason: Insomnia Stop: 11/26/16 23:47 Lorazepam (Ativan) 0.5 mg PO Q6 PRN PRN Reason: Anixety/Agitation Stop: 11/26/16 23:47 Magnesium Hydroxide (Milk Of Magnesia) 30 ml PO HS PRN PRN Reason: Constipation Metoprolol Tartrate (Lopressor) 25 mg PO DAILYWM [facility] Last Admin: 11/18/16 10:34 Dose: Not Given Quetiapine Fumarate (Seroquel) 300 mg PO HS [facility] Last Admin: 11/18/16 21:04 Dose: 300 mg Tramadol HCl (Ultram) 50 mg PO Q6 PRN PRN Reason: Pain, severe (8-10) Last Admin: 11/18/16 21:02 Dose: 50 mg - Labs Labs: 11/17/16 07:45 11/17/16 11:20 PT 45.8 Seconds (9.8-13.1) H* 11/18/16 07:30 INR 4.3 (0.9-1.2) H D 11/18/16 07:30 - Constitutional Appears: No Acute Distress - ENT Exam ENT Exam: Mucous Membranes Moist - Respiratory Exam Respiratory Exam: Clear to Ausculation Bilateral, NORMAL BREATHING PATTERN - Cardiovascular Exam Cardiovascular Exam: REGULAR RHYTHM, +S1, +S2 - GI/Abdominal Exam GI & Abdominal Exam: Soft, Normal Bowel Sounds. absent: Guarding, Rigid, Tenderness - Extremities Exam Extremities Exam: Normal Inspection. absent: Calf Tenderness, Pedal Edema - Neurological Exam Neurological Exam: Alert, Oriented x3 Assessment and Plan - Assessment and Plan (Free Text) Assessment: 56 year old female admitted for inpatient management of bipolar depression with suicidal ideation, previously admitted for coumadin toxicity Plan: Subtherapeutic INR -INR 3.3 on 11/19/16, goal: 2.5-3.5 -Coumadin was held yesterday 2/2 supratherapeutic INR: 4.3 -give coumadin 4 mg PO today -consider give coumadin 4 mg 6 times a week, and skip one day a week to keep therapeutic levels ( consider give coumadin ,T,,, , and skip Saturday) -f/u INR tomorrow AM Bipolar depression: - management as per psychiatry - Seroquel increased to 300 mg HS as per Psych Hx of Aortic valve replacement -INR 3.3 today give coumadin 4 mg today consider give coumadin 4 mg 6 times a week, and skip one day a week to keep therapeutic levels ( consider give coumadin M,T,W,, , and skip Saturday) HTN: check BP today at bedside was 103/73 c/w low normal levels BP, could be 2/2 changes in Seroguel doses Held lisinopril 5mg for now. Consider DC lisinopril decreased Metoprolol dose from 25mg to 12.5 mg BID due to low levels of BP Hold meds if BP is < 110/60 c/w Lipitor 80mg for today Elevated LFTs -AST/ALT trending down today -AST/ALT: 36/76 today, almost WNL c/w statin -consider dc if LFTs increased 3 times normal levels h/o CVA with left sided hemiplegia -as per previous pt documentation, not candidate for skilled pt -will have pt/ot reeval. -would benefit from home services Hypothyroidism: -TSH: 0.06, Free t4: 1.86, Total T4: 19.4 -c/w Levothyroxine 150 mcg (11/14) -will need repeat as outpatient. DVT Prophylaxis: -on warfarin
[2016-11-19 08:04] LABS: ALB/GLOB RATIO 1.4 (1.0-2.1); BILIRUBIN,TOTAL 0.7 mg/dl (0.2-1.3); TOTAL PROTEIN 6.5 G/DL (6.3-8.2)
--- NOTE | 2016-11-19 08:38 | PCM.PYCHPN ---
Psychiatric Progress Note - Psychiatric Progress Note Patient seen today, length of contact: Patient evaluated, case discussed with team, chart reviewed, 35 min Patient Chief Complaint: "I'm okay." Problems Identified/Issues Discussed: Patient reports that her mood is improving. She is goal oriented and would like to be discharged soon. She is less tearful and more interactive with staff. She denies current AH. She reports that she did not sleep well last night. We discussed continued titration of seroquel. Medication Change: Yes (Increase Seroquel to 400 mg PO HS) Medical Record Reviewed: Yes Mental Status Examination - Cognitive Function Orientation: Person, Place, Situation, Time Memory: Intact Attention: WNL Concentration: WNL Association: WNL Fund of Knowledge: [facility] Decription of patient's judgement and insights: Fair I/J - Mood Mood: Depressed - Affect Affect: Broad - Speech Speech: Appropriate - Formal Thought Process Formal Thought Process: No Impairment Psychotic Thoughts and Behaviors: No AH/VH/paranoia/delusions - Suicidal Ideation Suicidal Ideation: No - Homicidal Ideation Homicidal Ideation: No Goal/Treatment Plan - Goal/Treatment Plan Need for Continued Stay: Remain at risks for inpatient hospitalization, Severe depression anxiety, Discharge may exacerbated symptoms Progress Toward Problem(s) and Goals/Treatment Plan: Bipolar Disorder w/ psychotic features; patient is improving clinically, no longer reports hallucinations, but continues to report depressive symptoms. She requires acute inpatient admission for treatment, safety and stabilization. -Medicine consult appreciated -Increase Seroquel to 400 mg PO HS -Individual and group therapy -Disposition planning- possible discharge tomorrow if patient continues to improve clinically Estimated Date of D/C: 11/20/16 - Smoking Cessation Smoking Cessation Initiated: No Reason for not providing: Not indicted
[2016-11-19 20:58] VITALS: RESP 18
[2016-11-20 05:28] VITALS: BP 105/66; PULSE 78; TEMP 98.2
[2016-11-20] MEDS: Levothyroxine 150 MCG TAB PO SCH (05:33)
--- NOTE | 2016-11-20 07:32 | CP.PCM.PN ---
<Marian Browne - Last Filed: 11/20/16 11:50> Subjective - Date & Time of Evaluation Date of Evaluation: 11/20/16 Time of Evaluation: 07:00 - Subjective Subjective: Patient seen and examined with attending in Psych unit this morning. Denies Cp, SOB, N/V, abdominal pain, diarrheas or other complains Afebrile, BP stable in low normal levels INR today morning 2.7 Had an uneventful night Objective - Vital Signs/Intake and Output Vital Signs (last 24 hours): Temp Pulse Resp BP Pulse Ox 98.2 F 78 18 105/66 11/20/16 05:27 11/20/16 05:27 11/20/16 05:27 11/20/16 05:27 - Medications Medications: Current Medications Acetaminophen (Tylenol 325mg Tab) 650 mg PO Q4 PRN PRN Reason: Pain, moderate (4-7) Last Admin: 11/13/16 01:06 Dose: 650 mg Al Hydrox/Mg Hydrox/Simethicone (Maalox Plus 30 Ml) 30 ml PO Q4 PRN PRN Reason: Dyspepsia Last Admin: 11/18/16 19:36 Dose: 30 ml Atorvastatin Calcium (Lipitor) 80 mg PO HS [facility] Last Admin: 11/19/16 21:06 Dose: 80 mg Bismuth Subsalicylate (Pepto-Bismol) 524 mg PO Q4 PRN PRN Reason: Diarrhea Last Admin: 11/14/16 20:45 Dose: 524 mg Famotidine (Pepcid) 20 mg PO DAILY [facility] Last Admin: 11/19/16 08:46 Dose: 20 mg Ferrous Sulfate (Feosol) 325 mg PO DAILY [facility] Last Admin: 11/19/16 08:47 Dose: 325 mg Levothyroxine Sodium (Synthroid) 150 mcg PO DAILY@0630 [facility] Last Admin: 11/20/16 05:33 Dose: 150 mcg Lisinopril (Zestril) 5 mg PO DAILY [facility] Last Admin: 11/19/16 08:47 Dose: Not Given Lorazepam (Ativan) 0.5 mg PO HS PRN PRN Reason: Insomnia Stop: 11/26/16 23:47 Lorazepam (Ativan) 0.5 mg PO Q6 PRN PRN Reason: Anixety/Agitation Stop: 11/26/16 23:47 Magnesium Hydroxide (Milk Of Magnesia) 30 ml PO HS PRN PRN Reason: Constipation Metoprolol Tartrate (Lopressor) 12.5 mg PO DAILYWM KATHLEEN Quetiapine Fumarate (Seroquel) 400 mg PO HS [facility] Last Admin: 11/19/16 21:06 Dose: 400 mg Tramadol HCl (Ultram) 50 mg PO Q6 PRN PRN Reason: Pain, severe (8-10) Last Admin: 11/19/16 20:40 Dose: 50 mg - Labs Labs: 11/17/16 07:45 11/17/16 11:20 PT 27.9 Seconds (9.8-13.1) H D 11/20/16 05:15 INR 2.7 (0.9-1.2) H D 11/20/16 05:15 - Constitutional Appears: No Acute Distress - ENT Exam ENT Exam: Mucous Membranes Moist - Respiratory Exam Respiratory Exam: Clear to Ausculation Bilateral, NORMAL BREATHING PATTERN - Cardiovascular Exam Cardiovascular Exam: REGULAR RHYTHM, +S1, +S2 - Extremities Exam Extremities Exam: Normal Inspection. absent: Calf Tenderness, Pedal Edema - Neurological Exam Neurological Exam: Alert, Awake, Oriented x3 Assessment and Plan - Assessment and Plan (Free Text) Assessment: 56 year old female admitted for inpatient management of bipolar depression with suicidal ideation, previously admitted for coumadin toxicity Plan: Patient will be discharge from Psych unit today. PT/INR: 27.9/2.7 today Patient is medically stable, and can be discharge in current Coumadin 4 mg daily on Saturday, Saturday, Saturday, Saturday, Saturday, and Saturday. Skip one day per week, . Keep therapeutic levels of 2.5-3.5. Give Coumadin 4 mg today before discharge Patient will f/u with [facility], Dr. Cloud as outpatient this week on or Saturday for PT/INR monitoring as PMD's recommendations We decreased Metoprolol dose from 25mg to 12.5 mg BID due to low levels of BP during admission, with recommendation of holding BP meds if BP < 110/60 c/w Lisinopril 5 mg daily c/w current medications ER precautions given if bleeding is noted <Brad Peacock - Last Filed: 11/22/16 06:50> Objective - Vital Signs/Intake and Output Vital Signs (last 24 hours): Temp Pulse Resp BP Pulse Ox 98.2 F 78 18 105/66 11/20/16 05:27 11/20/16 08:40 11/20/16 05:27 11/20/16 08:40 - Labs Labs: 11/17/16 07:45 11/17/16 11:20 PT 27.9 Seconds (9.8-13.1) H D 11/20/16 05:15 INR 2.7 (0.9-1.2) H D 11/20/16 05:15 Attending/Attestation - Attestation I have personally seen and examined this patient.: Yes I have fully participated in the care of the patient.: Yes I have reviewed all pertinent clinical information, including history, physical exam and plan: Yes
--- NOTE | 2016-11-20 08:27 | PCM.PYCHDC ---
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 Patient is very tearful on interview, reports excessive crying, thoughts of dying/wishing she were (no active plan), +CAH to kill herself, poor sleep, poor appetite, hopelessness/helplessness, poor concentration, low energy, anhedonia. PPHx: H/o tx w/ Dr. Denney, currently not on any medications, reports h/o tx with risperdal, seroquel, zoloft, lithium. Past medical history: HTN, CVA with L hemiplegia, CAD s/p CABG and aortic valve replacement, Bipolar disorder, hypothyroidism Past surgical history: breast lesions removed. benign as per patient, CABG, aortic valve replacement, hysterectomy for fibroids Allergies: NKDA Social history: Lives with . Denies drugs/ etoh. Laboratory Data: Abnormal Lab Results 11/20/16 05:15 PT 27.9 H D INR 2.7 H D Consultations:: List each consultation separately and include: 1. Reason for request. 2. Findings. 3. Follow-up Consultations: Medicine consult Summary of Hospital Course include:: 1. Description of specific treatment plan utilized for patients during their course of treatmen. 2. Summarize the time- course for resolution of acute symptoms and/or regressed behaviors. 3. Describe issues identified and worked on during hospitalization. 4. Describe medication utilized. 5. Describe medical problems identified and treated. 6. Reassessment of suicide risk Summary of Hospital Course: Patient was admitted to the psychiatry unit. Individual and group therapy were provided. Patient was stabilized on Seroquel 400 mg PO HS. She reports improvement in mood and no longer reports hallucinations. She is psychiatrically stable for discharge. No danger to self or others. Psychoeducation provided on the importance of outpatient treatment and therapy. - Diagnosis (1) Bipolar disorder with depression Current Visit: No Status: Acute - Final Diagnosis (DSM 5) Condition upon Discharge: STABLE DSM 5: Bipolar Disorder w/ psychotic features Disposition: HOME/ ROUTINE Follow-up Treatment Plan: Bipolar Disorder w/ psychotic features; patient is improving clinically and is psychiatrically stable for discharge. -Medicine consult appreciated -Continue Seroquel 400 mg PO HS -Individual and group therapy -Disposition planning- discharge w/ outpatient follow-up Prescriptions/Medication Reconciliation: QUEtiapine [SEROquel] 400 mg PO HS #60 tab - Smoking Cessation Smoking Cessation Medication prescribed: No Reason for not providing: Not indicated - Antipsychotic Medications Pt discharged on 2 or more routine antipsychotic medications: No
== END 2016-11-20 14:30 | disposition home or self-care (01) | DRG 885 ==
LOC: H.STEP 23:04
PROVIDERS: ADMIT Psychiatry & Neurology Psychiatry; ATTEND Psychiatry & Neurology Psychiatry
PROC: GZ51ZZZ Individual Psychotherapy, Behavioral (ICD-10-PCS; 2016-11-12)
PROC: F07M6FZ Therapeutic Exercise Treatment of Musculoskeletal System - Whole Body using Assistive, Adaptive, Supportive or Protective Equipment (ICD-10-PCS; 2016-11-14)
PROC: F08Z4FZ Home Management Treatment using Assistive, Adaptive, Supportive or Protective Equipment (ICD-10-PCS; 2016-11-14)
PROC: GZHZZZZ Group Psychotherapy (ICD-10-PCS; principal; 2016-11-16)
DX: F31.5 Bipolar disorder, current episode depressed, severe, with psychotic features (principal); D68.9 Coagulation defect, unspecified; R45.851 Suicidal ideations; I69.954 Hemiplegia and hemiparesis following unspecified cerebrovascular disease affecting left non-dominant side; E03.9 Hypothyroidism, unspecified; E78.00 Pure hypercholesterolemia, unspecified; E78.5 Hyperlipidemia, unspecified; F29 Unspecified psychosis not due to a substance or known physiological condition; I10 Essential (primary) hypertension; I25.10 Atherosclerotic heart disease of native coronary artery without angina pectoris; J45.909 Unspecified asthma, uncomplicated; Z79.01 Long term (current) use of anticoagulants; Z79.899 Other long term (current) drug therapy; Z87.01 Personal history of pneumonia (recurrent); Z87.891 Personal history of nicotine dependence; Z90.710 Acquired absence of both cervix and uterus; Z95.1 Presence of aortocoronary bypass graft; Z95.2 Presence of prosthetic heart valve; Z95.5 Presence of coronary angioplasty implant and graft; K29.70 Gastritis, unspecified, without bleeding; L30.9 Dermatitis, unspecified; M19.90 Unspecified osteoarthritis, unspecified site; R45.83 Excessive crying of child, adolescent or adult

== ENCOUNTER 2018-07-06 20:58 | Inpatient (IN) | payer MEDICAID, OTHER ==
[2018-07-06 20:58] VITALS: BMI 27.3
[2018-07-06 23:12] LABS: BASO # 0.1 K/uL (0.0-0.2); BASO % 0.7 % (0.0-2.0); EOS # 0.1 K/uL (0.0-0.7); EOS % 0.7 % (0.0-4.0); HEMOGLOBIN 14.6 g/dL (12.0-16.0); LYMPH # 2.2 K/uL (1.0-4.3); LYMPH % 22.8 % (20.0-40.0); MEAN CELL VOLUME 90.1 fl (81.0-99.0); MEAN CORPUSCULAR HEMOGLOBIN 30.8 pg (27.0-31.0); MEAN CORPUSCULAR HGB CONC 34.1 g/dL (33.0-37.0); MEAN PLATELET VOLUME 8.7 fl (7.2-11.7); MONO # 0.4 K/uL (0.0-0.8); MONO % 4.1 % (0.0-10.0); NEUT # 6.8 K/uL (1.8-7.0); NEUT % 71.7 % (50.0-75.0); RBC 4.74 Mil/uL (3.80-5.20); WHITE BLOOD COUNT 9.5 K/uL (4.8-10.8)
[2018-07-06 23:17] LABS: INR 1.1; PROTHROMBIN TIME 12.1 Seconds (9.8-13.1)
[2018-07-06 23:20] LABS: PARTIAL THROMBOPLASTIN TIME 34.9 Seconds (25.6-37.1)
[2018-07-06 23:27] LABS: BLOOD UREA NITROGEN 19 mg/dl (7-17); CALCIUM 9.9 mg/dL (8.4-10.2); GFR NON-AFRICAN AMERICAN > 60
--- NOTE | 2018-07-07 00:08 | ED PDOC ---
HPI: Trauma/Fall - HPI Time Seen by Provider: 07/06/18 21:27 Chief Complaint (Nursing): Trauma Chief Complaint (Provider): Trauma History Per: Patient History/Exam Limitations: no limitations Injury Occurred (Timing): Today @ (1729) Additional Complaint(s): 57 year old female with medical history of hypertension and CVA with left-sided residual weakness, is brought to the emergency department VIA ambulance for an evaluation of back pain, headache, left ankle pain status post fall around 1730 today. Patient has gait assistance with a walker and states she was at home then lost balance, subsequently, fell backwards onto her rear and struck her head on the ground. She denies any loss of consciousness, vomiting, chest pain, shortness of breath, new weakness, numbness, or dizziness. Patient reports she was unable to get up following injury and was found by EMS an hour later when they attempted to breakdown the door to retrieve her. Of note, she reports daily use of Coumadin. PCP: Dr. Simba Cloud Past Medical History Reviewed: Historical Data, Nursing Documentation, Vital Signs Vital Signs: Last Vital Signs Temp 98.6 F 07/06/18 20:59 Pulse 66 07/06/18 20:59 Resp 16 07/06/18 20:59 BP 156/95 H 07/06/18 20:59 Pulse Ox 100 07/06/18 20:59 - Medical History PMH: Anxiety, Arthritis (knee,neck,fingers), Asthma, Bipolar Disorder, Bronchitis (4x), CAD, CVA, Depression, Gastritis, HTN, Hypercholesterolemia, Hyperlipidemia, Hypothyroidism, Multiple Sclerosis (off meds 1 1/2 yrs), Pneumonia, Schizophrenia, Seizures (off meds 1 1/2 yrs) Denies: HIV, Chronic Kidney Disease - Surgical History Surgical History: CABG (x5 in 10/2015), Coronary Stent (left circumflex), Pacemaker Other surgeries: ASR - Family History Family History: States: Unknown Family Hx, CAD, Hypertension - Immunization History Hx Tetanus Toxoid Vaccination: Yes Hx Influenza Vaccination: No Hx Pneumococcal Vaccination: No - Home Medications Home Medications: Ambulatory Orders Medication Instructions Recorded Ferrous Sulfate [Feosol] 325 mg PO DAILY 11/22/15 Famotidine [Pepcid] 20 mg PO DAILY 11/08/16 Lisinopril [Prinivil] 5 mg PO DAILY 11/08/16 Metoprolol Tartrate [Lopressor] 25 mg PO DAILY 11/08/16 Warfarin [Coumadin] 4 mg PO QAM 11/13/16 Atorvastatin [Lipitor] 80 mg PO HS tab 11/20/16 Levothyroxine [Synthroid] 150 mcg PO DAILY@0630 tab 11/20/16 QUEtiapine [SEROquel] 400 mg PO HS #60 tab 11/20/16 traMADol [Ultram] 50 mg PO Q6 PRN tab 11/20/16 - Allergies Allergies/Adverse Reactions: Allergies Allergy/AdvReac Type Severity Reaction Status Date / Time No Known Allergies Allergy Verified 05/09/16 01:51 Review of Systems ROS Statement: Except As Marked, All Systems Reviewed And Found Negative Cardiovascular: Negative for: Chest Pain Respiratory: Negative for: Shortness of Breath Gastrointestinal: Negative for: Vomiting Musculoskeletal: Positive for: Back Pain, Foot Pain (left ankle) Neurological: Positive for: Weakness (left-sided s/p CVA), Headache. Negative for: Numbness, Dizziness, Other (LOC) Physical Exam - Reviewed Nursing Documentation Reviewed: Yes Vital Signs Reviewed: Yes - Physical Exam Appears: Positive for: No Acute Distress Head Exam: Positive for: ATRAUMATIC, NORMAL INSPECTION, NORMOCEPHALIC Skin: Positive for: Normal Color Eye Exam: Positive for: Normal appearance, EOMI, PERRL ENT: Positive for: Normal ENT Inspection Neck: Positive for: Normal, Painless ROM, Supple Cardiovascular/Chest: Positive for: Regular Rate, Rhythm, Chest Non Tender Respiratory: Positive for: Normal Breath Sounds. Negative for: Decreased Breath Sounds, Respiratory Distress Gastrointestinal/Abdominal: Positive for: Normal Exam, Soft. Negative for: Tenderness, Distended Back: Positive for: Vertebral Tenderness (midline and paraspinal thoracic/ lumbar). Negative for: Other (deformity) Extremity: Positive for: Normal ROM (left ankle and toes), Tenderness (left malleolus mildy), Swelling (left malleolus mildy). Negative for: Deformity (left malleolus) Neurological/Psych: Positive for: Awake, Alert, Oriented, Motor/Sensory Deficits (left-sided weakness s/p CVA) - Laboratory Results Result Diagrams: 07/06/18 22:55 07/06/18 22:55 Lab Results: PT 12.1 Seconds (9.8-13.1) 07/06/18 22:55 INR 1.1 07/06/18 22:55 APTT 34.9 Seconds (25.6-37.1) 07/06/18 22:55 Troponin I 0.0160 ng/mL (0.00-0.120) 07/06/18 22:55 - ECG O2 Sat by Pulse Oximetry: 100 (RA) Pulse Ox Interpretation: Normal Medical Decision Making Medical Decision Making: Initial Impression: head injury, back injury, left ankle injury with associated pain syndrome Differential diagnosis: intracranial bleed; fracture; dislocation Initial Plan: * CT C-spine/head/lumbar/thoracic * XR left ankle * EKG * Labs Time: 2348 --CT head FINDINGS: BRAIN: No acute intraparenchymal hemorrhage. No mass lesion. No CT evidence for acute territorial infarct. No midline shift or extra-axial collections. A 5.3 x 3.8 cm zone of decreased attenuation is again seen in the right frontal temporal region compatible with post ischemic infarction and encephalomalacia. A 5.0 mm old lacunar infarction is seen in the left head of the caudate nucleus. VENTRICLES: No hydrocephalus. VASCULAR: Atherosclerotic vascular plaquing is seen within the vertebral arteries and carotid siphons bilaterally. ORBITS: The orbits are unremarkable. SINUSES AND MASTOIDS: The paranasal sinuses and mastoid air cells are clear. BONES: No fracture. SOFT TISSUES: Unremarkable. IMPRESSION: 1. No acute intracranial abnormality. 2. Old ischemic infarction in the right frontal temporal region. 3. 5.0 mm old lacunar infarction in the left head of the caudate nucleus. 4. Atherosclerotic vascular plaquing noted within the carotid siphons and vertebral arteries bilaterally. 5. No significant interval change. Time: 2349 --CT lumbar FINDINGS: ALIGNMENT: Bony alignment is anatomic. DISCS/DEGENERATIVE CHANGES: T12/L1: No significant central canal or neural foraminal stenosis. L1/L2: No significant central canal or neural foraminal stenosis. L2/L3: No significant central canal or neural foraminal stenosis. L3/4: No significant central canal or neural foraminal stenosis. L4/5: No significant central canal or neural foraminal stenosis. Mild bilateral apophyseal facet arthropathy noted. L5/S1: No significant central canal or neural foraminal stenosis. Mild bilateral apophyseal facet arthropathy noted. BONES: No acute fracture or aggressive appearing osseous lesion. SOFT TISSUES: The soft tissues are unremarkable. MISCELLANEOUS: No abnormal contrast enhancement. IMPRESSION: No acute lumbar spine abnormality. Mild bilateral apophyseal facet arthropathy at L4-5 and L5-S1. Time: 2350 --CT thoracic FINDINGS: BONES: No acute fracture or aggressive appearing osseous lesion. ALIGNMENT: Bony alignment is anatomic. DEGENERATIVE CHANGES: No significant central canal or neural foraminal stenosis. SOFT TISSUES: The soft tissues are unremarkable. IMPRESSION: No acute thoracic spine abnormality. Time: 2350 --CT c-spine FINDINGS: ALIGNMENT: Bony alignment is anatomic. DEGENERATIVE CHANGES: There is disc interspace narrowing seen at C4-5, C5-6, C6-7 compatible with degenerative disc disease. The remaining disc interspaces appear adequately maintained. No significant canal stenosis or neural foraminal narrowing evident. SOFT TISSUES: The prevertebral soft tissues are within normal limits. BONES: No acute fracture or aggressive appearing osseous lesion. IMPRESSION: 1. No acute cervical spine abnormality. 2. Evidence of degenerative disc disease noted at C4-5, C5-6, C6-7. Time: 1300 --Labs reviewed: glucose at 113mg/dL. elevated total CK at 176 U/L. Scribe Attestation: Documented by Allyson Ellis, acting as a scribe for Lloyd Sagastume MD. Provider Scribe Attestation: All medical record entries made by the Scribe were at my direction and personally dictated by me. I have reviewed the chart and agree that the record accurately reflects my personal performance of the history, physical exam, medical decision making, and the department course for this patient. I have also personally directed, reviewed, and agree with the discharge instructions and disposition. Disposition - Clinical Impression Clinical Impression: Head injury, Neck pain, Back pain - Patient ED Disposition Is Patient to be Admitted: Yes Discussed With : Sedrick Tanner Doctor Will See Patient In The: Hospital Counseled Patient/Family Regarding: Studies Performed, Diagnosis - Disposition Disposition Time: 02:30 Condition: FAIR - Pt Status Changed To: Hospital Disposition Of: Observation - POA Present On Arrival: None
--- NOTE | 2018-07-07 03:08 | CP.PCM.HP ---
<Antwan,Soraya - Last Filed: 07/07/18 04:24> History of Present Illness - History of Present Illness History of Present Illness: 57 y/o F with hx of CVA, HTN, hypothyroidism & BPD with depression was brought to ED by EMS for further evaluation after sustaining a fall in her apartment. As per the patient, she reports getting up and going to the bathroom when she felt the left ankle twist, which caused her to fall onto the buttocks. While falling she fell backward against the wall and hit her head. She endorses ambulating with a walker, and attempting to use it at the time of the fall. Since her fall, she reports come neck, buttock & left ankle pain. She denies any similar falls like this in the past or hx of seizure. She also denies any chest pain, shortness of breath, dizziness, lightheadedness prior to the fall. PMD: Dr. Ellison PMH: CVA, HTN, hypothyroidism, BPD with depression Meds: lisinopril, atorvastatin, metoprolol, seroquel, warfarin 3mg (on odd days), 4 mg (on even days as per the patient) Allergies: NKDA Surghx: CABD with 5 stents placed; aortic valve replacement, hysterectomy Famhx: denies Sochx: 10 cigarettes daily, denies EtOH or elicit drug use ROS: 12 points reviewed and are negative unless otherwise mentioned in HPI ED Course: P-66bpm BP-156/95 Temp: 98.6F RR-18 spo2-100% EKG Sinus bradycardia @ rate of 53 bpm with nonspecific t wave abnormality; troponin- 0.0160 CBC-unremarkable; BUN-19, Creatinine-0.7, Total creatine kinase-176 PT-12.1, INR-1.1, PTT-34.[address], cervical, thoracic, lumbar CT, hip/pelvis @ ankle-xray were performed. Present on Admission - Present on Admission Any Indicators Present on Admission: No Past Patient History - Infectious Disease Hx of Infectious Diseases: None - Tetanus Immunizations Tetanus Immunization: Unknown - Past Medical History & Family History Past Medical History?: Yes - Past Social History Smoking Status: Former Smoker - CARDIAC Hx Hypercholesterolemia: Yes Hx Hypertension: Yes Hx Pacemaker: Yes - PULMONARY Hx Asthma: Yes Hx Bronchitis: Yes (4x) Hx Pneumonia: Yes - NEUROLOGICAL Hx Multiple Sclerosis: Yes (off meds 1 1/2 yrs) Hx Seizures: Yes (off meds 1 1/2 yrs) - HEENT Hx HEENT Problems: No - RENAL Hx Chronic Kidney Disease: No - ENDOCRINE/METABOLIC Hx Hypothyroidism: Yes - HEMATOLOGICAL/ONCOLOGICAL Hx Human Immunodeficiency Virus (HIV): No - INTEGUMENTARY Hx Dermatological Problems: (Eczema) - MUSCULOSKELETAL/RHEUMATOLOGICAL Hx Arthritis: Yes (knee,neck,fingers) - GASTROINTESTINAL Hx Gastritis: Yes - GENITOURINARY/GYNECOLOGICAL Hx Genitourinary Disorders: No - PSYCHIATRIC Hx Anxiety: Yes Hx Bipolar Disorder: Yes Hx Depression: Yes Hx Schizophrenia: Yes - SURGICAL HISTORY Hx Coronary Artery Bypass Graft: Yes (x5 in 10/2015) Hx Coronary Stent: Yes (left circumflex) - ANESTHESIA Hx Anesthesia: Yes Hx Anesthesia Reactions: No Hx Malignant Hyperthermia: No Meds Allergies/Adverse Reactions: Allergies Allergy/AdvReac Type Severity Reaction Status Date / Time No Known Allergies Allergy Verified 05/09/16 01:51 Physical Exam - Constitutional Appears: Non-toxic - Head Exam Head Exam: ATRAUMATIC, NORMOCEPHALIC - Eye Exam Eye Exam: PERRL - ENT Exam ENT Exam: Mucous Membranes Dry - Neck Exam Neck exam: Positive for: Full Rom, Tenderness - Respiratory Exam Respiratory Exam: Clear to Auscultation Bilateral. absent: Wheezes, Respiratory Distress - Cardiovascular Exam Cardiovascular Exam: +S1, +S2 - GI/Abdominal Exam GI & Abdominal Exam: Normal Bowel Sounds, Soft. absent: Distended, Guarding, Rigid, Tenderness - Back Exam Additional comments: tenderness in the coccyx area with some tenderness over cervical area; no bruises - Neurological Exam Neurological exam: Alert, Oriented x3 - Expanded Neurological Exam Expanded Speech: Fluid Speech Neuro motor strength exam: Left Upper Extremity: 2/1 (pt needed to use rt arm to lift lt arm), Right Upper Extremity: 5, Left Lower Extremity: 2/1, Right Lower Extremity: 5 - Skin Skin Exam: Dry, Normal Color Results - Vital Signs Recent Vital Signs: Last Vital Signs Temp 98.6 F 07/06/18 20:59 Pulse 66 07/06/18 20:59 Resp 16 07/06/18 20:59 BP 156/95 H 07/06/18 20:59 Pulse Ox 100 07/07/18 02:46 - Labs Result Diagrams: 07/06/18 22:55 07/06/18 22:55 Labs: Laboratory Results - last 24 hr 07/06/18 07/06/18 07/06/18 22:55 22:55 22:55 WBC 9.5 D RBC 4.74 Hgb 14.6 D Hct 42.7 MCV 90.1 MCH 30.8 MCHC 34.1 RDW 15.0 H Plt Count 217 MPV 8.7 Neut % (Auto) 71.7 Lymph % (Auto) 22.8 Gaston % (Auto) 4.1 Eos % (Auto) 0.7 Baso % (Auto) 0.7 Neut # (Auto) 6.8 Lymph # (Auto) 2.2 Gaston # (Auto) 0.4 Eos # (Auto) 0.1 Baso # (Auto) 0.1 PT 12.1 INR 1.1 APTT 34.9 Sodium 139 Potassium 3.7 Chloride 102 Carbon Dioxide 25 Anion Gap 16 BUN 19 H Creatinine 0.7 Est GFR ( Amer) > 60 Est GFR (Non-Af Amer) > 60 Random Glucose 113 H Calcium 9.9 Total Creatine Kinase 176 H Troponin I 0.0160 Assessment & Plan - Assessment and Plan (Free Text) Assessment: 57 y/o F with hx of CVA (with residual left sided weakness), HTN, hypothyroidism & BPD with depression was brought to ED by EMS for further evaluation of i ntractable pain in neck, buttock, and left ankle after sustaining a fall in her apartment. Intractable pain (Neck, buttock & left ankle) s/p fall -Fall likely due to residual weakness from CVA -Admit to medsur for observation -Tylenol: mild pain -Toradol: 15mg Q6 mod pain -Toradol: 30mg IV Q6- severe pain -FU official report for Head CT-prelim report shows no acute pathology -FU official report cervical spine CT- no acute cervical abnormality; evidence of degenerative disc disease, -FU official report thoracic- no acute fracture -FU official report lumbar CT, hip/pelvis & ankle-xray Hx of CVA with residual left sided weakness -FU recommendations from PT in AM -Social work consult for homemaker -C/w atorvastatin Aortic Valve replacement -Warfarin 4mg this AM (med regimen- warfarin 3mg on odd days, 4 mg on even days as per the patient) -FU PT/INR/PTT HTN -C/w metoprolol -C/w lisinopril BPD with depression -C/w seroquel Hypothyroidism -C/w levothyroxine -FU TSH <Sedrick Tanner - Last Filed: 07/07/18 05:46> Results - Vital Signs Recent Vital Signs: Last Vital Signs Temp 97.9 F 07/07/18 04:44 Pulse 63 07/07/18 04:54 Resp 18 07/07/18 04:54 BP 137/74 07/07/18 04:44 Pulse Ox 98 07/07/18 04:54 - Labs Result Diagrams: 07/06/18 22:55 07/06/18 22:55 Labs: Laboratory Results - last 24 hr 07/06/18 07/06/18 07/06/18 22:55 22:55 22:55 WBC 9.5 D RBC 4.74 Hgb 14.6 D Hct 42.7 MCV 90.1 MCH 30.8 MCHC 34.1 RDW 15.0 H Plt Count 217 MPV 8.7 Neut % (Auto) 71.7 Lymph % (Auto) 22.8 Gaston % (Auto) 4.1 Eos % (Auto) 0.7 Baso % (Auto) 0.7 Neut # (Auto) 6.8 Lymph # (Auto) 2.2 Gaston # (Auto) 0.4 Eos # (Auto) 0.1 Baso # (Auto) 0.1 PT 12.1 INR 1.1 APTT 34.9 Sodium 139 Potassium 3.7 Chloride 102 Carbon Dioxide 25 Anion Gap 16 BUN 19 H Creatinine 0.7 Est GFR ( Amer) > 60 Est GFR (Non-Af Amer) > 60 Random Glucose 113 H Calcium 9.9 Total Creatine Kinase 176 H Troponin I 0.0160 Attending/Attestation - Attestation I have personally seen and examined this patient.: Yes I have fully participated in the care of the patient.: Yes I have reviewed all pertinent clinical information: Yes Notes (Text): 07/07/18 05:39 I saw, examined and discussed this patient with tisha Dixon. I agree with the assessment and plan outlined. This is a 57 years old female with CVA and left hemiplegia who lives alone, brought to the ED post with back, ankle pain and headache. The Radiological evaluation were negative for fractures and dislocations. The patient will be kept for observation with neuro checks. Restart home medications and start pain management for intractable back pain. Consult OT/PT, social worker masters and follow Troponin, TSH Sedrick Tanner MD
[2018-07-07] MEDS: Lactated Ringer's 1,000 ML IV SCH ×4 (04:47→21:40)
[2018-07-07] MEDS: Levothyroxine 150 MCG TAB PO SCH (05:49)
[2018-07-07 07:14] LABS: BASO % 0.6 % (0.0-2.0); EOS # 0.1 K/uL (0.0-0.7); EOS % 1.5 % (0.0-4.0); HEMOGLOBIN 13.9 g/dL (12.0-16.0); LYMPH # 2.8 K/uL (1.0-4.3); LYMPH % 48.8 % (20.0-40.0); MEAN CELL VOLUME 90.2 fl (81.0-99.0); MEAN CORPUSCULAR HEMOGLOBIN 30.5 pg (27.0-31.0); MEAN CORPUSCULAR HGB CONC 33.8 g/dL (33.0-37.0); MEAN PLATELET VOLUME 8.2 fl (7.2-11.7); MONO # 0.3 K/uL (0.0-0.8); MONO % 5.8 % (0.0-10.0); NEUT # 2.5 K/uL (1.8-7.0); NEUT % 43.3 % (50.0-75.0); NRBC % 0.1 % (0.0-0.0); RBC 4.55 Mil/uL (3.80-5.20); RED CELL DISTRIBUTION WIDTH 14.8 % (11.5-14.5); WHITE BLOOD COUNT 5.8 K/uL (4.8-10.8)
[2018-07-07 07:19] LABS: INR 1.1; PROTHROMBIN TIME 12.4 Seconds (9.8-13.1)
[2018-07-07 07:21] LABS: ALB/GLOB RATIO 1.3 (1.0-2.1); ALBUMIN 3.8 g/dL (3.5-5.0); ALT/SGPT 48 U/L (9-52); AST/SGOT 30 U/L (14-36); BLOOD UREA NITROGEN 16 mg/dl (7-17); GFR NON-AFRICAN AMERICAN > 60; PARTIAL THROMBOPLASTIN TIME 37.5 Seconds (25.6-37.1)
--- NOTE | 2018-07-07 09:25 | CT ---
Date of service: 07/06/2018 PROCEDURE: CT HEAD WITHOUT CONTRAST. HISTORY: head injury COMPARISON: Serial CT scans of the head: 12/01/2015, 05/09/2016 and 11/08/2016. TECHNIQUE: Axial computed tomography images were obtained through the head/brain without intravenous contrast. Supplemental Coronal and Sagittal projections created and reviewed. Radiation dose: Total exam DLP = 784.23 mGy-cm. This CT exam was performed using one or more of the following dose reduction techniques: Automated exposure control, adjustment of the mA and/or kV according to patient size, and/or use of iterative reconstruction technique. FINDINGS: HEMORRHAGE: No intracranial hemorrhage. BRAIN: No mass effect or edema. Evidence of old right MCA CVA. Unchanged. Old basal ganglia infarct on the left, unchanged VENTRICLES: Unilateral, right ventricular enlargement related to previously described encephalomalacia change. No hydrocephalus. CALVARIUM: Unremarkable. PARANASAL SINUSES: Unremarkable as visualized. No significant inflammatory changes. MASTOID AIR CELLS: Unremarkable as visualized. No inflammatory changes. OTHER FINDINGS: None. IMPRESSION: No acute intracranial abnormalities. No significant findings to account for the clinical presentation. No significant findings related to/ accounting for the clinical presentation. Additional benign and/or incidental findings described above. No significant interval change compared to the prior examination(s). Concordant results (preliminary interpretation) provided by [employer]. Procedure Completed: 22:49 Preliminary Report: Interpreted and electronically signed: 23:49. Final Interpretation: 09:21. July 07, 2018.
--- NOTE | 2018-07-07 09:27 | CARD ---
APPROVED REPORT Date of service: 07/06/2018 EKG Measurement Heart [id number] <Conclusion> Sinus bradycardia Nonspecific T wave abnormality Abnormal ECG
--- NOTE | 2018-07-07 09:36 | CT ---
Date of service: 07/06/2018 PROCEDURE: CT Cervical Spine without contrast HISTORY: neck pain COMPARISON: None available. TECHNIQUE: Axial computed tomography images were obtained of the cervical spine without the use of intravenous contrast. Coronal and sagittal reformatted images were created and reviewed. Radiation dose: Total exam DLP = 330.52 mGy-cm. This CT exam was performed using one or more of the following dose reduction techniques: Automated exposure control, adjustment of the mA and/or kV according to patient size, and/or use of iterative reconstruction technique. FINDINGS: VERTEBRAE: No fracture. Normal alignment. No destructive bony lesion. DISCS/SPINAL CANAL/NEURAL FORAMINA: No significant central canal or neural foraminal stenosis. Cervical spondylotic change noted C4-5, C5-6, C6-7. Additional non marginal osteophyte formation noted anteriorly. PARASPINAL SOFT TISSUES: Unremarkable. OTHER FINDINGS: None. IMPRESSION: No acute findings related to/ accounting for the clinical presentation. Additional benign and/or incidental findings described above. Concordant results (preliminary interpretation) provided by [email or web address]. Procedure Completed: 22:53. Preliminary Report: Interpreted and electronically signed: 23:50. Final Interpretation: 09:22. July 07, 2018.
--- NOTE | 2018-07-07 09:46 | CT ---
Date of service: 07/06/2018 PROCEDURE: CT Thoracic Spine without contrast HISTORY: back pain fall COMPARISON: None available. TECHNIQUE: Axial computed tomography images were obtained of the thoracic spine without intravenous contrast. Coronal and sagittal reformatted images were created and reviewed. Radiation dose: Total exam DLP = 721.48 mGy-cm. This CT exam was performed using one or more of the following dose reduction techniques: Automated exposure control, adjustment of the mA and/or kV according to patient size, and/or use of iterative reconstruction technique. FINDINGS: VERTEBRAE: Unremarkable. No fracture. Normal alignment. DISCS/SPINAL CANAL/NEURAL FORAMINA: Within the limits of the CT technique, no disc herniation seen. No central canal or neural foraminal stenosis.. PARASPINAL SOFT TISSUES: Unremarkable. OTHER FINDINGS: Unremarkable. IMPRESSION: No significant or acute findings to account for/ related to the clinical presentation. Concordant results (preliminary interpretation) provided by [facility]. Procedure Completed: 22:58. Preliminary Report: Interpreted and electronically signed: 23:50. Final Interpretation: 09:43. July 07, 2018.
--- NOTE | 2018-07-07 09:53 | CT ---
Date of service: 07/06/2018 PROCEDURE: CT Lumbar Spine without contrast HISTORY: Posttraumatic back pain. COMPARISON: None available. TECHNIQUE: Axial computed tomography images were obtained of the lumbar spine without the use of intravenous contrast. Coronal and sagittal reformatted images were created and reviewed. Radiation dose: Total exam DLP = 874.15 mGy-cm. This CT exam was performed using one or more of the following dose reduction techniques: Automated exposure control, adjustment of the mA and/or kV according to patient size, and/or use of iterative reconstruction technique. FINDINGS: VERTEBRAE: Unremarkable. No fracture. Normal alignment. DISCS/SPINAL CANAL/NEURAL FORAMINA: L1-2: Unremarkable. L2-3: Unremarkable. L3-4: Unremarkable. L4-5: Unremarkable. L5-S1: Unremarkable. PARASPINAL SOFT TISSUES: Unremarkable. OTHER FINDINGS: Facet arthropathy without canal stenosis L3-4, L4-5, L5-S1. IMPRESSION: No acute findings related to/ accounting for the clinical presentation. Additional benign and/or incidental findings described above. Concordant results (preliminary interpretation) provided by [employer]. Procedure Completed: 22:58. Preliminary Report: Interpreted and electronically signed: 23:50. Final Interpretation: 09:48. July 07, 2018.
--- NOTE | 2018-07-07 11:03 | RAD ---
Date of service: 07/06/2018 PROCEDURE: Left Ankle Radiographs. HISTORY: Posttraumatic left ankle pain. COMPARISON: None available. TECHNIQUE: 3 views obtained. FINDINGS: BONES: Osteopenia. No fracture identified. JOINTS: Normal. No osteoarthritis. Ankle mortise maintained. Talar dome intact SOFT TISSUES: Normal. OTHER FINDINGS: None. IMPRESSION: No acute findings related to/ accounting for the clinical presentation.
--- NOTE | 2018-07-07 12:30 | RAD ---
PROCEDURE: Radiographs of the pelvis and bilateral hips HISTORY: buttock pain fall COMPARISON: None. TECHNIQUE: 2 views obtained. FINDINGS: BONES: Pelvis: Unremarkable. Right hip:Unremarkable. Left hip:Unremarkable. JOINTS: Right hip: Unremarkable. Left hip: Unremarkable. Sacroiliac Joints: Unremarkable. Pubic symphysis: Unremarkable. SOFT TISSUES: Normal. OTHER FINDINGS: None. IMPRESSION: Unremarkable radiographs of the hips and pelvis.
--- NOTE | 2018-07-08 00:01 | CON ---
DATE: 07/07/2018 ENDOCRINOLOGY CONSULTATION LOCATION: Room 667. HISTORY OF PRESENT ILLNESS: This is a 57-year-old female with known history of hypothyroidism, currently off medications for over a month and had sustained a fall at home with concomitant dizziness and lightheadedness prompting this ER consult and subsequent admission. PAST MEDICAL HISTORY: History of hypothyroidism, previously on levothyroxine up to 150 mcg daily; history of hypertension, dyslipidemia, history of previous CVA; history of chronic schizoaffective disorder with major depression, on psychotropic medications; history of coronary artery disease with a previous coronary artery bypass graft surgery and multiple coronary stent placements; also prior history of aortic valve replacement, and currently on alternating dose of warfarin medications as noted. FAMILY HISTORY: Positive for hypertension and diabetes. SOCIAL HISTORY: The patient is a current smoker and smokes half a pack a day for over 20 years now. REVIEW OF SYSTEMS: Admits to generalized body weakness with increasing hypersomnolence and lethargy and progressive dizziness and lightheadedness, worse on the day of admission. No chest pains but admits to progressive shortness of breath especially on exertion. Her oral intake has been variable with nausea, dyspepsia and vague upper abdominal pains. Also admits to habitual constipation. PHYSICAL EXAMINATION: GENERAL: An overweight female, in no apparent distress. VITAL SIGNS: Blood pressure of 150/90, pulse of 70 beats per minute and regular, temperature 98, respirations 20. Height is 5 feet, weight is 159. HEENT: Head: Normocephalic. Eyes: Anicteric with pink conjunctivae. Funduscopy not possible at this time. Ears, nose and throat otherwise normal. NECK: Supple. Thyroid gland is normal in size. No carotid bruits or any cervical adenopathy. CARDIOPULMONARY: Some adynamic precordium. S1, S2 is rapid and regular. LUNGS: Clear to auscultation. ABDOMEN: Flat, soft with positive bowel sounds. EXTREMITIES: No peripheral edema. Pulses are +2 bilaterally. LABORATORY DATA: Initial chemistries, BUN of 19, sodium 139, potassium 3.7, chloride 102, CO2 of 25, glucose 113 and creatinine 0.7. Her TSH is 120.00. ASSESSMENT: This is a 57-year-old female with overt hypothyroidism noted both historically, clinically and biochemically related to drug omission and presenting here with an accidental fall at home with concomitant constitutional manifestations of marked hypothyroidism thereof. There is no evidence of any sinus bradycardia at this time as noted and she remains hemodynamically stable, otherwise. PLAN OF MANAGEMENT: We will resume her oral levothyroxine given as 150 mcg once daily in the morning as ordered and emphasized the imperative need for life long maintenance therapy with this aforementioned dose regimen as given. These medications are extremely affordable and cost only $10 for a 3-month supply as checked by the [facility] and even [facility]. Would benefit from a stat dose of levothyroxine given parenterally of 100 mcg as stat dose and will resume as mentioned above her oral levothyroxine at 150 mcg daily. We will obtain serial chemistries and supplement accordingly as needed. We will follow. Allyson Starr MD
[2018-07-08] MEDS: Lactated Ringer's 1,000 ML IV SCH ×2 (03:36→19:41)
[2018-07-08] MEDS: Levothyroxine 150 MCG TAB PO SCH (06:15)
[2018-07-08 06:17] LABS: HEMOGLOBIN 13.3 g/dL (12.0-16.0); MEAN CELL VOLUME 90.2 fl (81.0-99.0); MEAN CORPUSCULAR HEMOGLOBIN 30.4 pg (27.0-31.0); MEAN CORPUSCULAR HGB CONC 33.7 g/dL (33.0-37.0); RBC 4.36 Mil/uL (3.80-5.20); RED CELL DISTRIBUTION WIDTH 14.8 % (11.5-14.5); WHITE BLOOD COUNT 4.9 K/uL (4.8-10.8)
[2018-07-08 06:21] LABS: INR 1.1; PROTHROMBIN TIME 12.8 Seconds (9.8-13.1)
[2018-07-08 06:25] LABS: BLOOD UREA NITROGEN 19 mg/dl (7-17); CALCIUM 8.5 mg/dL (8.4-10.2); GFR NON-AFRICAN AMERICAN > 60
--- NOTE | 2018-07-08 07:48 | PN ---
DATE: 07/08/2018 ENDOCRINOLOGY FOLLOWUP NOTE LOCATION: Room 667. SUBJECTIVE: This is a 57-year-old female with overt hypothyroidism related to recent drug omission and is now being followed closely for metabolic management. Her glycemic levels are also near optimal at this time. LABORATORY DATA: Her latest chemistry showed a BUN of 16, sodium 137, potassium 3.5, chloride 103, CO2 of 28, glucose 96 and creatinine 0.5. Free T4 is 0.36 with a TSH of 120. ASSESSMENT: This is a 57-year-old female with marked hypothyroidism related to drug omission and presenting here with constitutional symptoms thereof. She most likely has autoimmune thyroiditis. PLAN OF MANAGEMENT: We will continue the oral levothyroxine given as 150 mcg once daily in the morning as ordered as it takes over 6 months to normalize the TSH levels accordingly. A total T4 or thyroxine level was obtained for tomorrow as noted. We will obtain serial chemistries and supplement accordingly as needed. We will follow. Allyson Starr MD
[2018-07-08] MEDS ORDERED: Levothyroxine 200 mcg (0.2 mg) Inj IVP STA (08:36)
--- NOTE | 2018-07-08 10:51 | CP.PCM.PN ---
<Tiffanie Tay - Last Filed: 07/08/18 10:43> Subjective - Date & Time of Evaluation Date of Evaluation: 07/08/18 Time of Evaluation: 10:43 - Subjective Subjective: Patient seen and examined. Reports feels about the same in terms of her generalized body pain. Denies chest pain, shortness of breath, nausea, vomiting, and abdominal pain. Reports good appetite. Objective - Vital Signs/Intake and Output Vital Signs (last 24 hours): Temp Pulse Resp BP Pulse Ox 98.2 F 59 L 18 134/78 97 07/08/18 09:11 07/08/18 09:11 07/08/18 09:11 07/08/18 09:11 07/08/18 09:11 - Medications Medications: Current Medications Acetaminophen (Tylenol 325mg Tab) 650 mg PO Q6 PRN PRN Reason: Pain, Mild (1-3) Atorvastatin Calcium (Lipitor) 80 mg PO HS [facility] Last Admin: 07/07/18 21:36 Dose: 80 mg Famotidine (Pepcid) 20 mg PO DAILY [facility] Last Admin: 07/08/18 08:27 Dose: 20 mg Ferrous Sulfate (Feosol) 325 mg PO DAILY [facility] Last Admin: 07/08/18 08:27 Dose: 325 mg Lactated Ringer's (Lactated Ringer's) 1,000 mls @ 125 mls/hr IV .Q8H [facility] Last Admin: 07/08/18 03:36 Dose: Not Given Ketorolac Tromethamine (Toradol) 15 mg IVP Q6 PRN PRN Reason: Pain, moderate (4-7) Last Admin: 07/08/18 10:12 Dose: 15 mg Ketorolac Tromethamine (Toradol) 30 mg IVP Q6 PRN PRN Reason: Pain, severe (8-10) Last Admin: 07/07/18 21:36 Dose: 30 mg Levothyroxine Sodium (Synthroid) 150 mcg PO DAILY@0630 [facility] Last Admin: 07/08/18 06:15 Dose: 150 mcg Lisinopril (Zestril) 5 mg PO DAILY [facility] Last Admin: 07/08/18 08:45 Dose: 5 mg Metoprolol Tartrate (Lopressor) 25 mg PO DAILY [facility] Last Admin: 07/07/18 09:11 Dose: 25 mg Quetiapine Fumarate (Seroquel) 400 mg PO HS [facility] Last Admin: 07/07/18 21:36 Dose: 400 mg Warfarin Sodium (Coumadin) 4 mg PO ONCE ONE; Protocol Stop: 07/09/18 08:01 - Labs Labs: 07/08/18 06:05 07/08/18 06:05 PT 12.8 Seconds (9.8-13.1) 07/08/18 06:05 INR 1.1 07/08/18 06:05 APTT 37.5 Seconds (25.6-37.1) H 07/07/18 06:30 - Constitutional Appears: No Acute Distress, Older Than Stated Age, Chronically Ill - Eye Exam Eye Exam: Normal appearance - ENT Exam ENT Exam: Mucous Membranes Moist - Neck Exam Neck Exam: Normal Inspection. absent: Thyromegaly - Respiratory Exam Respiratory Exam: Clear to Ausculation Bilateral, NORMAL BREATHING PATTERN. absent: Accessory Muscle Use, Chest Wall Tenderness, Decreased Breath Sounds, Prolonged Expiratory Phase, Rales, Rhonchi, Wheezes, Respiratory Distress, Stridor - Cardiovascular Exam Cardiovascular Exam: Bradycardia, +S1, +S2, Murmur - GI/Abdominal Exam GI & Abdominal Exam: Soft, Normal Bowel Sounds. absent: Distended, Firm, Guarding, Rigid, Tenderness, Rebound - Extremities Exam Extremities Exam: Normal Capillary Refill, Normal Inspection - Neurological Exam Neurological Exam: Alert, Awake, Oriented x3 Neuro motor strength exam: Left Upper Extremity: 2/1, Right Upper Extremity: 5, Left Lower Extremity: 2/1, Right Lower Extremity: 5 - Psychiatric Exam Psychiatric exam: Normal Affect, Normal Mood - Skin Skin Exam: Dry, Intact, Normal Color, Warm Assessment and Plan - Assessment and Plan (Free Text) Assessment: 57 y/o F with hx of CVA (with residual left sided weakness), HTN, hypothyroidism & BPD with depression was brought by EMS for generalized intractable pain, found to have elevations in TSH (120's). Patient admits to not taking her Levot hyroxine 150 mcg for 1 month duration because she didnt have refills. Plan: Intractable pain (Neck, buttock & left ankle) s/p fall -Fall likely due to residual weakness from CVA -Pain medications: Tylenol: mild pain; Toradol: 15mg Q6 mod pain; Toradol: 30mg IV Q6- severe pain -Head CT, Cervical spine CT, Thoracic CT, Lumbar CT- No acute intracranial abnormalitites - Hip and Pelvis Xray: unremarkable -Ankle-xray : No acute findings. Hx of CVA with residual left sided weakness -PT -Social work consult for homemaker: patient does not qualify as she has no insurance. -C/w atorvastatin Aortic Valve replacement -Warfarin 3mg this AM (med regimen- warfarin 3mg on odd days, 4 mg on even days as per the patient) - Last INR: 1.1 -FU INR tomorrow - Warfarin 4mg tomorrow am after INR HTN -C/w metoprolol -C/w lisinopril BPD with depression -C/w seroquel Hypothyroidism -C/w levothyroxine 150mcg at this time - Endocrinology consult appreciated- continue with Levothyroxine 150mcg at this time - 07/07/18 TSH: 120 ; T4: 0.36 ; T3: 1.63 - 07/08/18 : TSH: 167 - IV Levothyroxine 100mcg given IV at this time given TSH elevation and bradycardia DVT prophylaxis - Warfain <Shelley Meza - Last Filed: 07/08/18 11:09> Objective - Vital Signs/Intake and Output Vital Signs (last 24 hours): Temp Pulse Resp BP Pulse Ox 98.2 F 59 L 18 134/78 97 07/08/18 09:11 07/08/18 09:11 07/08/18 09:11 07/08/18 09:11 07/08/18 09:11 - Medications Medications: Current Medications Acetaminophen (Tylenol 325mg Tab) 650 mg PO Q6 PRN PRN Reason: Pain, Mild (1-3) Atorvastatin Calcium (Lipitor) 80 mg PO HS [facility] Last Admin: 07/07/18 21:36 Dose: 80 mg Famotidine (Pepcid) 20 mg PO DAILY [facility] Last Admin: 07/08/18 08:27 Dose: 20 mg Ferrous Sulfate (Feosol) 325 mg PO DAILY [facility] Last Admin: 07/08/18 08:27 Dose: 325 mg Lactated Ringer's (Lactated Ringer's) 1,000 mls @ 125 mls/hr IV .Q8H [facility] Last Admin: 07/08/18 03:36 Dose: Not Given Ketorolac Tromethamine (Toradol) 15 mg IVP Q6 PRN PRN Reason: Pain, moderate (4-7) Last Admin: 07/08/18 10:12 Dose: 15 mg Ketorolac Tromethamine (Toradol) 30 mg IVP Q6 PRN PRN Reason: Pain, severe (8-10) Last Admin: 07/07/18 21:36 Dose: 30 mg Levothyroxine Sodium (Synthroid) 150 mcg PO DAILY@0630 [facility] Last Admin: 07/08/18 06:15 Dose: 150 mcg Lisinopril (Zestril) 5 mg PO DAILY [facility] Last Admin: 07/08/18 08:45 Dose: 5 mg Metoprolol Tartrate (Lopressor) 25 mg PO DAILY [facility] Last Admin: 07/07/18 09:11 Dose: 25 mg Quetiapine Fumarate (Seroquel) 400 mg PO HS [facility] Last Admin: 07/07/18 21:36 Dose: 400 mg Warfarin Sodium (Coumadin) 4 mg PO ONCE ONE; Protocol Stop: 07/09/18 08:01 - Labs Labs: 07/08/18 06:05 07/08/18 06:05 PT 12.8 Seconds (9.8-13.1) 07/08/18 06:05 INR 1.1 07/08/18 06:05 APTT 37.5 Seconds (25.6-37.1) H 07/07/18 06:30 Attending/Attestation - Attestation I have personally seen and examined this patient.: Yes I have fully participated in the care of the patient.: Yes I have reviewed all pertinent clinical information, including history, physical exam and plan: Yes Notes (Text): 07/08/18 11:08 57-year-old female with past medical history of CVA with residual weakness, hypothyroidism, hypertension, bipolar disorder, and depression, she was initially admitted for bilateral lower extremity weakness which is likely secondary to her CVA as well as her uncontrolled hypothyroidism. Her TSH was found to be extremely elevated in the 120s and increased to the 160s today. Endocrinology consult appreciated and followed. She was resumed on her levothyroxine 150 mcg daily which she had not been taking for over a month. Overnight she became bradycardic and IV levothyroxine was also initiated. Currently she is hemodynamically stable in no acute distress. She has been seen by physical therapy, will continue to monitor her. Agree with findings and plan as above.
[2018-07-08] MEDS ORDERED: Levothyroxine 100 mcg (0.1 mg) Inj IVP STA (11:20)
[2018-07-09] MEDS: Lactated Ringer's 1,000 ML IV SCH ×3 (03:45→19:44)
[2018-07-09] MEDS: Levothyroxine 150 MCG TAB PO SCH (05:37)
[2018-07-09 06:53] LABS: INR 1.4; PROTHROMBIN TIME 15.7 Seconds (9.8-13.1)
[2018-07-09 06:54] LABS: HEMOGLOBIN 12.7 g/dL (12.0-16.0); MEAN CELL VOLUME 90.2 fl (81.0-99.0); MEAN CORPUSCULAR HEMOGLOBIN 30.2 pg (27.0-31.0); MEAN CORPUSCULAR HGB CONC 33.4 g/dL (33.0-37.0); RBC 4.19 Mil/uL (3.80-5.20); RED CELL DISTRIBUTION WIDTH 14.6 % (11.5-14.5); WHITE BLOOD COUNT 9.1 K/uL (4.8-10.8)
[2018-07-09 07:16] LABS: BLOOD UREA NITROGEN 20 mg/dl (7-17); CALCIUM 8.3 mg/dL (8.4-10.2); GFR NON-AFRICAN AMERICAN > 60
--- NOTE | 2018-07-09 09:28 | CP.PCM.PN ---
<Tiffanie Tay - Last Filed: 07/09/18 12:14> Subjective - Date & Time of Evaluation Date of Evaluation: 07/09/18 Time of Evaluation: 10:00 - Subjective Subjective: Patient seen and examined at bedside. Reports feeling much better as compared to yesterday. States she is willing to participate in PT. Reports good appetite. Denies angina, chills, dypsnea, nausea, and vomiting or abdominal pain. Objective - Vital Signs/Intake and Output Vital Signs (last 24 hours): Temp Pulse Resp BP Pulse Ox 97.7 F 58 L 20 109/66 96 07/09/18 08:21 07/09/18 08:21 07/09/18 08:21 07/09/18 08:21 07/09/18 08:21 - Medications Medications: Current Medications Acetaminophen (Tylenol 325mg Tab) 650 mg PO Q6 PRN PRN Reason: Pain, Mild (1-3) Atorvastatin Calcium (Lipitor) 80 mg PO HS [facility] Last Admin: 07/08/18 21:05 Dose: 80 mg Famotidine (Pepcid) 20 mg PO DAILY [facility] Last Admin: 07/09/18 08:25 Dose: 20 mg Ferrous Sulfate (Feosol) 325 mg PO DAILY [facility] Last Admin: 07/09/18 08:25 Dose: 325 mg Lactated Ringer's (Lactated Ringer's) 1,000 mls @ 125 mls/hr IV .Q8H [facility] Last Admin: 07/09/18 03:45 Dose: 125 mls/hr Ketorolac Tromethamine (Toradol) 15 mg IVP Q6 PRN PRN Reason: Pain, moderate (4-7) Last Admin: 07/09/18 05:37 Dose: 15 mg Ketorolac Tromethamine (Toradol) 30 mg IVP Q6 PRN PRN Reason: Pain, severe (8-10) Last Admin: 07/08/18 19:37 Dose: 30 mg Levothyroxine Sodium (Synthroid) 150 mcg PO DAILY@0630 [facility] Last Admin: 07/09/18 05:37 Dose: 150 mcg Lisinopril (Zestril) 5 mg PO DAILY [facility] Last Admin: 07/09/18 08:25 Dose: 5 mg Metoprolol Tartrate (Lopressor) 25 mg PO DAILY [facility] Last Admin: 07/07/18 09:11 Dose: 25 mg Quetiapine Fumarate (Seroquel) 400 mg PO HS [facility] Last Admin: 07/08/18 21:05 Dose: 400 mg Warfarin Sodium (Coumadin) 5 mg PO QD5 [facility]; Protocol Stop: 07/09/18 17:01 - Labs Labs: 07/09/18 05:54 07/09/18 05:54 PT 15.7 Seconds (9.8-13.1) H 07/09/18 05:54 INR 1.4 07/09/18 05:54 APTT 37.5 Seconds (25.6-37.1) H 07/07/18 06:30 - Constitutional Appears: Non-toxic, No Acute Distress, Older Than Stated Age - ENT Exam ENT Exam: Mucous Membranes Moist - Respiratory Exam Respiratory Exam: Clear to Ausculation Bilateral, NORMAL BREATHING PATTERN. absent: Accessory Muscle Use, Chest Wall Tenderness, Decreased Breath Sounds, Prolonged Expiratory Phase, Rales, Rhonchi, Wheezes, Respiratory Distress, Strid or - Cardiovascular Exam Cardiovascular Exam: REGULAR RHYTHM, +S1, +S2, Murmur - GI/Abdominal Exam GI & Abdominal Exam: Soft, Normal Bowel Sounds. absent: Distended, Firm, Guarding, Rigid, Tenderness, Rebound - Extremities Exam Extremities Exam: Normal Capillary Refill (+2 distal pedal pulses ), Normal Inspection. absent: Calf Tenderness, Joint Swelling, Pedal Edema, Tenderness - Back Exam Back Exam: NORMAL INSPECTION - Neurological Exam Neurological Exam: Alert, Awake, Oriented x3 - Psychiatric Exam Psychiatric exam: Normal Affect, Normal Mood - Skin Skin Exam: Dry, Intact, Normal Color, Warm Assessment and Plan - Assessment and Plan (Free Text) Assessment: 57 y/o F with hx of CVA (with residual left sided weakness), HTN, hypothyroidism & BPD with depression was brought to ED by EMS for further evaluation of intractable pain in neck, buttock, and left ankle after sustaining a fall in her apartment. Found to have TSH 160's- admitted for management of uncontrolled hypothyroidism. Plan: Intractable pain (Neck, buttock & left ankle) s/p fall -Fall likely due to residual weakness from CVA -Pain medications: Tylenol: mild pain; Toradol: 15mg Q6 mod pain; Toradol: 30mg IV Q6- severe pain -Head CT, Cervical spine CT, Thoracic CT, Lumbar CT- No acute intracranial abnormalitites - Hip and Pelvis Xray: unremarkable -Ankle-xray : No acute findings. - PT/ OT eval Hypothyroidism - Uncontrolled - C/w levothyroxine 150mcg at this time - Endocrinology consult appreciated- continue with Levothyroxine 150mcg at this time - 07/07/18 TSH: 120 ; T4: 0.36 ; T3: 1.63 - 07/08/18 : TSH: 167 - s/p IV Levothyroxine 100mcg x1 dose. Hx of CVA with residual left sided weakness - PT - Social work consult for homemaker: patient does not qualify as she has no insurance. - C/w atorvastatin Aortic Valve replacement -Warfarin 5 mg this AM (med regimen- warfarin 3mg on odd days, 4 mg on even days as per the patient) - Last INR: 1.4 -FU INR tomorrow - Warfarin 3 mg tomorrow am after INR HTN -C/w metoprolol -C/w lisinopril BPD with depression -C/w seroquel DVT prophylaxis - Warfarin <Shelley Meza - Last Filed: 07/11/18 21:46> Objective - Vital Signs/Intake and Output Vital Signs (last 24 hours): Temp Pulse Resp BP Pulse Ox 98.7 F 62 18 124/76 95 07/11/18 16:31 07/11/18 16:31 07/11/18 16:31 07/11/18 16:31 07/11/18 16:31 - Labs Labs: 07/10/18 06:21 07/10/18 06:21 PT 22.5 Seconds (9.8-13.1) H 07/11/18 06:33 INR 2.0 07/11/18 06:33 APTT 37.5 Seconds (25.6-37.1) H 07/07/18 06:30 Attending/Attestation - Attestation I have personally seen and examined this patient.: Yes I have fully participated in the care of the patient.: Yes I have reviewed all pertinent clinical information, including history, physical exam and plan: Yes Notes (Text): agree with findings and plan as above.
--- NOTE | 2018-07-09 23:31 | PN ---
DATE: 07/09/2018 ENDOCRINOLOGY FOLLOWUP NOTE LOCATION: Room 667. SUBJECTIVE: This is a 57-year-old female with recent drug omission of her levothyroxine medications, presenting here with constitutional symptoms of dizziness and lightheadedness and is now improving clinically and metabolically as noted thereof. LABORATORY DATA: Her repeat chemistry showed a BUN of 20, sodium 135, potassium 4.1, chloride 106, CO2 of 25, glucose 89 and creatinine 0.5. Her thyroid studies though are fluctuating with a repeat TSH of 167, but has an improved T4 level of 3.16 and a free T4 of 0.36. ASSESSMENT: This is a 57-year-old female with marked hypothyroidism related to recent drug omission of her levothyroxine replacement therapy, presenting here with constitutional symptoms thereof and also overt hypothyroidism noted both historically, clinically and biochemically as noted. She most likely has the so-called autoimmune thyroiditis causing the aforementioned and clearly needs lifelong maintenance therapy. PLAN OF MANAGEMENT: Would reinforce imperatively with the patient the need for lifelong adherence and compliance to her levothyroxine medications as these are extremely affordable costing only $10 for 90-day supply of the medications at [facility] and [facility]. Would continue the levothyroxine given as 150 mcg daily as it takes over 6 months or longer to normalize the TSH levels. It takes only a few weeks to normalize the thyroxine or T4 level, and this should guide medical therapy and medical dose adjustments of her levothyroxine medications. For now, we will continue the levothyroxine at 150 mcg for eventual discharge today. Allyson Starr MD
[2018-07-10] MEDS: Lactated Ringer's 1,000 ML IV SCH ×2 (02:00→03:30)
[2018-07-10] MEDS: Levothyroxine 150 MCG TAB PO SCH (05:31)
[2018-07-10 07:09] LABS: HEMOGLOBIN 12.3 g/dL (12.0-16.0); MEAN CELL VOLUME 90.8 fl (81.0-99.0); MEAN CORPUSCULAR HEMOGLOBIN 30.5 pg (27.0-31.0); MEAN CORPUSCULAR HGB CONC 33.6 g/dL (33.0-37.0); RBC 4.02 Mil/uL (3.80-5.20); RED CELL DISTRIBUTION WIDTH 15.2 % (11.5-14.5); WHITE BLOOD COUNT 5.1 K/uL (4.8-10.8)
[2018-07-10 07:19] LABS: INR 1.8
[2018-07-10 07:26] LABS: BLOOD UREA NITROGEN 16 mg/dl (7-17); CALCIUM 8.6 mg/dL (8.4-10.2); GFR NON-AFRICAN AMERICAN > 60
--- NOTE | 2018-07-10 08:48 | CP.PCM.PN ---
<Tiffanie Tay - Last Filed: 07/10/18 10:37> Subjective - Date & Time of Evaluation Date of Evaluation: 07/10/18 Time of Evaluation: 09:15 - Subjective Subjective: Patient seen and examined. Reports feels about the same in terms of her generalized body pain. States she feels down, denies SI/HI. Reports she has been feeling down the past few months. States she is willing to participate again in PT today. Denies chest pain, shortness of breath, nausea, vomiting, and abdominal pain. Reports good appetite. Objective - Vital Signs/Intake and Output Vital Signs (last 24 hours): Temp Pulse Resp BP Pulse Ox 97.3 F L 60 20 148/80 97 07/10/18 07:55 07/10/18 07:55 07/10/18 07:55 07/10/18 07:55 07/10/18 07:55 - Medications Medications: Current Medications Acetaminophen (Tylenol 325mg Tab) 650 mg PO Q6 PRN PRN Reason: Pain, Mild (1-3) Last Admin: 07/09/18 09:50 Dose: 650 mg Atorvastatin Calcium (Lipitor) 80 mg PO HS [facility] Last Admin: 07/09/18 21:05 Dose: 80 mg Famotidine (Pepcid) 20 mg PO DAILY [facility] Last Admin: 07/10/18 08:16 Dose: 20 mg Ferrous Sulfate (Feosol) 325 mg PO DAILY [facility] Last Admin: 07/10/18 08:16 Dose: 325 mg Lactated Ringer's (Lactated Ringer's) 1,000 mls @ 125 mls/hr IV .Q8H [facility] Last Admin: 07/10/18 03:30 Dose: Not Given Ketorolac Tromethamine (Toradol) 15 mg IVP Q6 PRN PRN Reason: Pain, moderate (4-7) Last Admin: 07/09/18 19:19 Dose: 15 mg Ketorolac Tromethamine (Toradol) 30 mg IVP Q6 PRN PRN Reason: Pain, severe (8-10) Last Admin: 07/10/18 05:41 Dose: 30 mg Levothyroxine Sodium (Synthroid) 150 mcg PO DAILY@0630 [facility] Last Admin: 07/10/18 05:31 Dose: 150 mcg Lisinopril (Zestril) 5 mg PO DAILY [facility] Last Admin: 07/10/18 08:16 Dose: 5 mg Metoprolol Tartrate (Lopressor) 25 mg PO DAILY [facility] Last Admin: 07/07/18 09:11 Dose: 25 mg Quetiapine Fumarate (Seroquel) 400 mg PO HS [facility] Last Admin: 07/09/18 21:06 Dose: 400 mg - Labs Labs: 07/10/18 06:21 07/10/18 06:21 PT 20.0 Seconds (9.8-13.1) H 07/10/18 06:21 INR 1.8 07/10/18 06:21 APTT 37.5 Seconds (25.6-37.1) H 07/07/18 06:30 - Constitutional Appears: Non-toxic, No Acute Distress, Older Than Stated Age, Chronically Ill - Eye Exam Eye Exam: Normal appearance - ENT Exam ENT Exam: Mucous Membranes Moist - Respiratory Exam Respiratory Exam: Clear to Ausculation Bilateral, NORMAL BREATHING PATTERN. absent: Accessory Muscle Use, Chest Wall Tenderness, Decreased Breath Sounds, Prolonged Expiratory Phase, Rales, Rhonchi, Wheezes, Respiratory Distress, Stridor - Cardiovascular Exam Cardiovascular Exam: REGULAR RHYTHM, +S1, +S2, Murmur - GI/Abdominal Exam GI & Abdominal Exam: Soft, Normal Bowel Sounds. absent: Distended, Firm, Guarding, Rigid, Hyperactive Bowel Sounds, Hypoactive Bowel Sounds, Mass, Rebound - Extremities Exam Extremities Exam: Normal Capillary Refill, Normal Inspection. absent: Calf Tenderness, Pedal Edema, Tenderness - Back Exam Back Exam: NORMAL INSPECTION - Neurological Exam Neurological Exam: Alert, Awake, Oriented x3 Neuro motor strength exam: Left Upper Extremity: 2/1, Right Upper Extremity: 5, Left Lower Extremity: 2/1, Right Lower Extremity: 5 - Psychiatric Exam Psychiatric exam: Depressed, Flat Affect. absent: Agitated, Anxious, Homicidal Ideation, Manic, Suicidal Ideation - Skin Skin Exam: Dry, Intact, Normal Color, Warm Assessment and Plan - Assessment and Plan (Free Text) Assessment: 57 y/o F with hx of CVA (with residual left sided weakness), HTN, hypothyroidism & BPD with depression was brought to ED by EMS for further evaluation of intractable pain in neck, buttock, and left ankle after sustaining a fall in her apartment. NO SI/HI. Plan: Intractable pain (Neck, buttock & left ankle) s/p fall -Fall likely due to residual weakness from CVA -Pain medications: Tylenol: mild pain; Toradol: 15mg Q6 mod pain; Toradol: 30mg IV Q6- severe pain -Head CT, Cervical spine CT, Thoracic CT, Lumbar CT- No acute intracranial abnormalitites - Hip and Pelvis Xray: unremarkable -Ankle-xray : No acute findings. Hypothyroidism - Uncontrolled -C/w levothyroxine 150mcg at this time - Endocrinology consult appreciated- continue with Levothyroxine 150mcg at this time, patient can be discharged on this dose. - 07/07/18 TSH: 120 ; T4: 0.36 ; T3: 1.63 - 07/08/18 : TSH: 167 - IV Levothyroxine 100mcg x1 dose. Hx of CVA with residual left sided weakness -PT -Social work consult for homemaker: patient does not qualify as she has no insurance. -C/w atorvastatin Aortic Valve replacement -Warfarin 5 mg this AM (med regimen- warfarin 3mg on odd days, 4 mg on even days as per the patient) - Last INR: 1.8 -FU INR tomorrow HTN -C/w metoprolol -C/w lisinopril BPD with depression -C/w seroquel - Psych consulted given depressed mood DVT prophylaxis - Warfarin <Shelley Meza - Last Filed: 07/11/18 21:44> Objective - Vital Signs/Intake and Output Vital Signs (last 24 hours): Temp Pulse Resp BP Pulse Ox 98.7 F 62 18 124/76 95 07/11/18 16:31 07/11/18 16:31 07/11/18 16:31 07/11/18 16:31 07/11/18 16:31 - Labs Labs: 07/10/18 06:21 07/10/18 06:21 PT 22.5 Seconds (9.8-13.1) H 07/11/18 06:33 INR 2.0 07/11/18 06:33 APTT 37.5 Seconds (25.6-37.1) H 07/07/18 06:30 Attending/Attestation - Attestation I have personally seen and examined this patient.: Yes I have fully participated in the care of the patient.: Yes I have reviewed all pertinent clinical information, including history, physical exam and plan: Yes Notes (Text): agree with findings and plan as above.
--- NOTE | 2018-07-10 11:54 | CP.PCM.CON ---
History of Present Illness - History of Present Illness History of Present Illness: consult requested for history of depression pt is a 57 ys old female with previous psychiatric diagnosis of bipolar disorder, currently on the medical floor , brought to hospital by EMS after sustaining a fall pt has history of a CVA. on evaluation , pt reported previous admissions to psych hospital and previous overdose attempts.pt stated that he who suffered from liver cancer last thanksgi, since then she reports low mood, decreased energy, anhedonia, hopelessness, crying spells, poor concentration and poor sleep with early insomnia .pt also reported having non command auditory hallucinations, hearing voices calling he name she reports having passive suicidal thoughts without a plan - Past Patient History - Infectious Disease Hx of Infectious Diseases: None - Tetanus Immunizations Tetanus Immunization: Unknown - Past Medical History & Family History Past Medical History?: Yes - Past Social History Smoking Status: Light Smoker < 10 Cigarettes Daily - CARDIAC Hx Cardiac Disorders: Yes Hx Hypercholesterolemia: Yes Hx Hypertension: Yes Hx Pacemaker: Yes - PULMONARY Hx Respiratory Disorders: Yes Hx Asthma: Yes Hx Bronchitis: Yes (4x) Hx Pneumonia: Yes - NEUROLOGICAL Hx Neurological Disorder: Yes Hx Multiple Sclerosis: Yes (off meds 1 1/2 yrs) Hx Seizures: Yes (off meds 1 1/2 yrs) - HEENT Hx HEENT Problems: No - RENAL Hx Chronic Kidney Disease: No - ENDOCRINE/METABOLIC Hx Endocrine Disorders: Yes Hx Hypothyroidism: Yes - HEMATOLOGICAL/ONCOLOGICAL Hx Blood Disorders: No Hx Human Immunodeficiency Virus (HIV): No - INTEGUMENTARY Hx Dermatological Problems: Yes (Eczema) - MUSCULOSKELETAL/RHEUMATOLOGICAL Hx Musculoskeletal Disorders: Yes Hx Arthritis: Yes (knee,neck,fingers) Hx Falls: Yes - GASTROINTESTINAL Hx Gastrointestinal Disorders: Yes Hx Gastritis: Yes - GENITOURINARY/GYNECOLOGICAL Hx Genitourinary Disorders: No - PSYCHIATRIC Hx Psychophysiologic Disorder: Yes Hx Anxiety: Yes Hx Bipolar Disorder: Yes Hx Depression: Yes Hx Schizophrenia: Yes - SURGICAL HISTORY Hx Surgeries: Yes Hx Coronary Artery Bypass Graft: Yes (x5 in 10/2015) Hx Coronary Stent: Yes (left circumflex) - ANESTHESIA Hx Anesthesia: Yes Hx Anesthesia Reactions: No Hx Malignant Hyperthermia: No Meds Allergies/Adverse Reactions: Allergies Allergy/AdvReac Type Severity Reaction Status Date / Time No Known Allergies Allergy Verified 05/09/16 01:51 - Medications Medications: Current Medications Acetaminophen (Tylenol 325mg Tab) 650 mg PO Q6 PRN PRN Reason: Pain, Mild (1-3) Last Admin: 07/09/18 09:50 Dose: 650 mg Atorvastatin Calcium (Lipitor) 80 mg PO [facility] Last Admin: 07/09/18 21:05 Dose: 80 mg Famotidine (Pepcid) 20 mg PO DAILY [facility] Last Admin: 07/10/18 08:16 Dose: 20 mg Ferrous Sulfate (Feosol) 325 mg PO DAILY [facility] Last Admin: 07/10/18 08:16 Dose: 325 mg Ketorolac Tromethamine (Toradol) 15 mg IVP Q6 PRN PRN Reason: Pain, moderate (4-7) Last Admin: 07/09/18 19:19 Dose: 15 mg Ketorolac Tromethamine (Toradol) 30 mg IVP Q6 PRN PRN Reason: Pain, severe (8-10) Last Admin: 07/10/18 11:21 Dose: 30 mg Levothyroxine Sodium (Synthroid) 150 mcg PO DAILY@0630 [facility] Last Admin: 07/10/18 05:31 Dose: 150 mcg Lisinopril (Zestril) 5 mg PO DAILY [facility] Last Admin: 07/10/18 08:16 Dose: 5 mg Metoprolol Tartrate (Lopressor) 25 mg PO DAILY [facility] Last Admin: 07/07/18 09:11 Dose: 25 mg Quetiapine Fumarate (Seroquel) 400 mg PO [facility] Last Admin: 07/09/18 21:06 Dose: 400 mg Warfarin Sodium (Coumadin) 5 mg PO ONCE ONE; Protocol Stop: 07/10/18 17:01 Physical Exam - Psychiatric Exam Additional comments: pt seen in bed, partial eye contact depressed mood and affect, speech soft and slow, thought form coherent, reported non command auditory hallucinations, dd, reported passive suicidal ideation without a plan, pt is alert awake ox3, fair insight and judgment Results - Vital Signs Recent Vital Signs: Last Vital Signs Temp 97.3 F L 07/10/18 07:55 Pulse 60 07/10/18 07:55 Resp 20 07/10/18 07:55 BP 148/80 07/10/18 07:55 Pulse Ox 97 07/10/18 07:55 - Labs Result Diagrams: 07/10/18 06:21 07/10/18 06:21 Labs: Laboratory Results - last 24 hr 07/08/18 07/10/18 07/10/18 06:05 06:21 06:21 WBC 5.1 RBC 4.02 Hgb 12.3 Hct 36.5 MCV 90.8 MCH 30.5 MCHC 33.6 RDW 15.2 H Plt Count 164 PT 20.0 H INR 1.8 Sodium Potassium Chloride Carbon Dioxide Anion Gap BUN Creatinine Est GFR ( Amer) Est GFR (Non-Af Amer) Random Glucose Calcium Thyroperoxidase Ab >900 H 07/10/18 06:21 WBC RBC Hgb Hct MCV MCH MCHC RDW Plt Count PT INR Sodium 136 Potassium 4.1 Chloride 107 Carbon Dioxide 25 Anion Gap 8 L BUN 16 Creatinine 0.5 L Est GFR ( Amer) > 60 Est GFR (Non-Af Amer) > 60 Random Glucose 93 Calcium 8.6 Thyroperoxidase Ab Assessment & Plan - Assessment and Plan (Free Text) Assessment: bipolar I disorder MRE depressed severe with psychotic features Plan: pt presenting with severe depression and passive suicidal ideation, pt would benefit from admission to psychiatry upon medical clearance
[2018-07-11] MEDS: Levothyroxine 150 MCG TAB PO SCH (05:39)
[2018-07-11 07:13] LABS: PROTHROMBIN TIME 22.5 Seconds (9.8-13.1)
--- NOTE | 2018-07-11 09:39 | CP.PCM.PN ---
<Tiffanie Tay - Last Filed: 07/11/18 09:52> Subjective - Date & Time of Evaluation Date of Evaluation: 07/11/18 Time of Evaluation: 09:35 - Subjective Subjective: Patient seen and examined. Reports feels about the same in terms of her generalized body pain. Denies chest pain, shortness of breath, nausea, vomiting, and abdominal pain. Reports good appetite. Discussed with patient about Geropsych, she reports she is not interested because she does not want to stay for many days in the psychiatric floor as it costs her a lot of money. Denies SI/HI. Reports she still feels down. Objective - Vital Signs/Intake and Output Vital Signs (last 24 hours): Temp Pulse Resp BP Pulse Ox 97.6 F 65 19 130/80 96 07/11/18 07:57 07/11/18 08:29 07/11/18 07:57 07/11/18 08:29 07/11/18 07:57 - Medications Medications: Current Medications Acetaminophen (Tylenol 325mg Tab) 650 mg PO Q6 PRN PRN Reason: Pain, Mild (1-3) Last Admin: 07/09/18 09:50 Dose: 650 mg Atorvastatin Calcium (Lipitor) 80 mg PO [facility] Last Admin: 07/10/18 21:06 Dose: 80 mg Famotidine (Pepcid) 20 mg PO DAILY [facility] Last Admin: 07/11/18 08:29 Dose: 20 mg Ferrous Sulfate (Feosol) 325 mg PO DAILY [facility] Last Admin: 07/11/18 08:29 Dose: 325 mg Ketorolac Tromethamine (Toradol) 15 mg IVP Q6 PRN PRN Reason: Pain, moderate (4-7) Last Admin: 07/11/18 05:31 Dose: 15 mg Ketorolac Tromethamine (Toradol) 30 mg IVP Q6 PRN PRN Reason: Pain, severe (8-10) Last Admin: 07/11/18 09:32 Dose: 30 mg Levothyroxine Sodium (Synthroid) 150 mcg PO DAILY@0630 [facility] Last Admin: 07/11/18 05:39 Dose: 150 mcg Lisinopril (Zestril) 5 mg PO DAILY [facility] Last Admin: 07/11/18 08:29 Dose: 5 mg Metoprolol Tartrate (Lopressor) 25 mg PO DAILY [facility] Last Admin: 07/07/18 09:11 Dose: 25 mg Quetiapine Fumarate (Seroquel) 400 mg PO HS [facility] Last Admin: 07/10/18 21:06 Dose: 400 mg - Labs Labs: 07/10/18 06:21 07/10/18 06:21 PT 22.5 Seconds (9.8-13.1) H 07/11/18 06:33 INR 2.0 07/11/18 06:33 APTT 37.5 Seconds (25.6-37.1) H 07/07/18 06:30 - Constitutional Appears: Non-toxic, No Acute Distress - ENT Exam ENT Exam: Mucous Membranes Moist - Respiratory Exam Respiratory Exam: Clear to Ausculation Bilateral, NORMAL BREATHING PATTERN. absent: Accessory Muscle Use, Chest Wall Tenderness, Decreased Breath Sounds, Prolonged Expiratory Phase, Rales, Rhonchi, Wheezes, Respiratory Distress, Stridor - Cardiovascular Exam Cardiovascular Exam: REGULAR RHYTHM, +S1, +S2, Murmur - GI/Abdominal Exam GI & Abdominal Exam: Soft. absent: Distended, Firm, Guarding, Rigid, Tenderness, Mass, Normal Bowel Sounds, Rebound - Extremities Exam Extremities Exam: Full ROM, Normal Capillary Refill, Normal Inspection. absent: Calf Tenderness, Joint Swelling, Pedal Edema, Tenderness Additional comments: Weakness on Left are and leg s/p previous CVA. 2/5 Left upper and lower extremity; 5/5 right upper and lower extremity. +2 dorsalis pedis and tibialis pulses present bilaterally. - Back Exam Back Exam: NORMAL INSPECTION - Neurological Exam Neurological Exam: Alert, Awake, Oriented x3 Neuro motor strength exam: Left Upper Extremity: 2/1, Right Upper Extremity: 5, Left Lower Extremity: 2/1, Right Lower Extremity: 5 - Psychiatric Exam Psychiatric exam: Depressed, Flat Affect. absent: Agitated, Anxious, Homicidal Ideation, Manic, Suicidal Ideation - Skin Skin Exam: Dry, Intact, Normal Color, Warm Assessment and Plan - Assessment and Plan (Free Text) Assessment: 57 y/o F with hx of CVA (with residual left sided weakness), HTN, hypothyroidism & BPD with depression admitted for uncontrolled hypothyroidism. Patient found to be depressed, Psychiatric consult placed, patient is not interested at this time because she reports it is too expensive. No Suicidal ideation or intent or homi cidal intent or ideation during my interview with patient. Plan: Intractable pain (Neck, buttock & left ankle) s/p fall -Fall likely due to residual weakness from CVA -Pain medications: Tylenol: mild pain; Toradol: 15mg Q6 mod pain; Toradol: 30mg IV Q6- severe pain -Head CT, Cervical spine CT, Thoracic CT, Lumbar CT- No acute intracranial abnormalitites - Hip and Pelvis Xray: unremarkable -Ankle-xray : No acute findings. Hypothyroidism - Uncontrolled -C/w levothyroxine 150mcg at this time - Endocrinology consult appreciated- continue with Levothyroxine 150mcg at this time - 07/07/18 TSH: 120 ; T4: 0.36 ; T3: 1.63 - 07/08/18 : TSH: 167 - IV Levothyroxine 100mcg x1 dose Hx of CVA with residual left sided weakness -PT -Social work consult for homemaker: patient does not qualify as she has no insurance. -C/w atorvastatin Aortic Valve replacement - Warfarin 5 mg yesterday, 5mg will be given today given INR of 2.0 - (med regimen- warfarin 3mg on odd days, 4 mg on even days as per the patient) - Last INR: 2.0 -F/U INR tomorrow HTN -C/w metoprolol -C/w lisinopril BPD with depression -C/w seroquel - Psych consult placed- recc's appreciated- patient not interested in [facility] psych placement at this time DVT prophylaxis - Warfain <Shelley Meza - Last Filed: 07/11/18 22:06> Objective - Vital Signs/Intake and Output Vital Signs (last 24 hours): Temp Pulse Resp BP Pulse Ox 98.7 F 62 18 124/76 95 07/11/18 16:31 07/11/18 16:31 07/11/18 16:31 07/11/18 16:31 07/11/18 16:31 - Labs Labs: 07/10/18 06:21 07/10/18 06:21 PT 22.5 Seconds (9.8-13.1) H 07/11/18 06:33 INR 2.0 07/11/18 06:33 APTT 37.5 Seconds (25.6-37.1) H 07/07/18 06:30 Attending/Attestation - Attestation I have personally seen and examined this patient.: Yes I have fully participated in the care of the patient.: Yes I have reviewed all pertinent clinical information, including history, physical exam and plan: Yes Notes (Text): agree with findings and plan as above
--- NOTE | 2018-07-11 11:12 | CP.PCM.DIS ---
<Tiffanie Tay - Last Filed: 07/11/18 11:05> Provider - Provider Date of Admission: 07/08/18 11:04 Attending physician: Sedrick Tanner Consults: 07/07/18 11:53 Endocrinology Consult Routine Comment: Consulting Provider: Allyson Starr Consulting Physician: Allyson Starr Reason for Consult: Hypothyroidism; TSH: 120's 07/10/18 10:11 Psychiatry Consult Routine Comment: Consulting Provider: Aryan Kauffman Consulting Physician: Aryan Kauffman Reason for Consult: Depression 07/11/18 06:46 Social Work Referral Routine Comment: needs home services Physician Instructions: Reason For Exam: needs home services Time Spent in preparation of Discharge (in minutes): 30 Diagnosis - Discharge Diagnosis (1) Hypothyroid Status: Chronic Comment: -C/w levothyroxine 150mcg at this time. - Endocrinology consult appreciated- continue with Levothyroxine 150mcg at this time. - 07/08/18 : TSH: 167. - IV Levothyroxine 100mcg x1 dose (2) Depression Status: Acute Comment: -C/w seroquel. FELIPA psych placement at this time (3) CVA (cerebral vascular accident) Status: Chronic Comment: -Fall likely due to residual weakness from CVA. -Pain medications: Tylenol: mild pain; Toradol: 15mg Q6 mod pain; Toradol: 30mg IV Q6- severe pain. -Head CT, Cervical spine CT, Thoracic CT, Lumbar CT- No acute intracranial abnormalitites. -Hip and Pelvis Xray: unremarkable. -Ankle-xray : No acute findings. (4) Aortic valve replaced Status: Acute Comment: Warfarin 3mg on odd days, 4 mg on even days as per the patient. Last INR: 2.0 (07/11/18) (5) HTN (hypertension) Status: Chronic Comment: -C/w metoprolol. -C/w lisinopril Hospital Course - Lab Results Lab Results: Most Recent Lab Values WBC 5.1 K/uL (4.8-10.8) 07/10/18 06:21 RBC 4.02 Mil/uL (3.80-5.20) 07/10/18 06:21 Hgb 12.3 g/dL (12.0-16.0) 07/10/18 06:21 Hct 36.5 % (34.0-47.0) 07/10/18 06:21 MCV 90.8 fl (81.0-99.0) 07/10/18 06:21 MCH 30.5 pg (27.0-31.0) 07/10/18 06:21 MCHC 33.6 g/dL (33.0-37.0) 07/10/18 06:21 RDW 15.2 % (11.5-14.5) H 07/10/18 06:21 Plt Count 164 K/uL (130-400) 07/10/18 06:21 MPV 8.2 fl (7.2-11.7) 07/07/18 06:30 Neut % (Auto) 43.3 % (50.0-75.0) L 07/07/18 06:30 Lymph % (Auto) 48.8 % (20.0-40.0) H 07/07/18 06:30 [place] % (Auto) 5.8 % (0.0-10.0) 07/07/18 06:30 Eos % (Auto) 1.5 % (0.0-4.0) 07/07/18 06:30 Baso % (Auto) 0.6 % (0.0-2.0) 07/07/18 06:30 Neut # (Auto) 2.5 K/uL (1.8-7.0) 07/07/18 06:30 Lymph # (Auto) 2.8 K/uL (1.0-4.3) 07/07/18 06:30 [place] # (Auto) 0.3 K/uL (0.0-0.8) 07/07/18 06:30 Eos # (Auto) 0.1 K/uL (0.0-0.7) 07/07/18 06:30 Baso # (Auto) 0.0 K/uL (0.0-0.2) 07/07/18 06:30 PT 22.5 Seconds (9.8-13.1) H 07/11/18 06:33 INR 2.0 07/11/18 06:33 APTT 37.5 Seconds (25.6-37.1) H 07/07/18 06:30 Sodium 136 mmol/l (132-148) 07/10/18 06:21 Potassium 4.1 MMOL/L (3.6-5.0) 07/10/18 06:21 Chloride 107 mmol/L (98-107) 07/10/18 06:21 Carbon Dioxide 25 mmol/L (22-30) 07/10/18 06:21 Anion Gap 8 (10-20) L 07/10/18 06:21 BUN 16 mg/dl (7-17) 07/10/18 06:21 Creatinine 0.5 mg/dl (0.7-1.2) L 07/10/18 06:21 Est GFR ( Amer) > 60 07/10/18 06:21 Est GFR (Non-Af Amer) > 60 07/10/18 06:21 Random Glucose 93 mg/dL (65-105) 07/10/18 06:21 Calcium 8.6 mg/dL (8.4-10.2) 07/10/18 06:21 Total Bilirubin 0.5 mg/dl (0.2-1.3) 07/07/18 06:30 AST 30 U/L (14-36) 07/07/18 06:30 ALT 48 U/L (9-52) 07/07/18 06:30 Alkaline Phosphatase 78 U/L (38-126) 07/07/18 06:30 Total Creatine Kinase 223 U/L (30-135) H 07/07/18 05:50 Troponin I 0.0410 ng/mL (0.00-0.120) 07/07/18 12:28 Total Protein 6.7 G/DL (6.3-8.2) 07/07/18 06:30 Albumin 3.8 g/dL (3.5-5.0) 07/07/18 06:30 Globulin 2.9 gm/dL (2.2-3.9) 07/07/18 06:30 Albumin/Globulin Ratio 1.3 (1.0-2.1) 07/07/18 06:30 Free T4 0.36 ng/dL (0.78-2.19) L 07/07/18 13:12 Thyroxine (T4) 3.16 ug/dl (5.5-11.0) L 07/08/18 06:05 Free T3 pg/mL 1.63 pg/mL (2.77-5.27) L 07/07/18 13:12 TSH 3rd Generation 167.00 mIU/ML (0.46-4.68) H 07/08/18 06:05 Thyroperoxidase Ab >900 IU/mL (<9) H 07/08/18 06:05 - Hospital Course Hospital Course: 57 y/o F with hx of CVA (with residual left sided weakness), HTN, hypothyroidism & BPD with depression was brought to ED by EMS for further evaluation of intractable pain in neck, buttock, and left ankle after sustaining a fall in her apartment admitted for uncontrolled hypothyroidism and found to be depressed. Patient was found to have TSH in the 120's and repeat was 160's associated with bradycardia. Endocrinology was consulted given elevation of TSH. Levothyroxine 150mcg daily was restarted (as patient reports she was not taking it for 1 month). Levothyroxine 100mcg IV x1 dose was given to patient given consistent bradycardia and increase of TSH from 120's to 160's. Patient's HR began to normalized after a few days of levothyroxine 150mcg PO treatment. During her stay, patient reported increase in depression secondary to the loss of her recently. Psychiatry consult was appreciated, patient to be admitted to [facility]. Patient is to continue home medications, specifically Warfarin 3mg to begin tomorrow and Warfarin 4mg to be given the next day (alternating days). This is for her aortic valve replacement. Discharge Exam - Head Exam Head Exam: ATRAUMATIC, NORMOCEPHALIC - Eye Exam Eye Exam: Normal appearance - ENT Exam ENT Exam: Mucous Membranes Moist - Respiratory Exam Respiratory Exam: Clear to PA & Lateral, NORMAL BREATHING PATTERN, UNREMARKABLE - Cardiovascular Exam Cardiovascular Exam: +S1, +S2, Systolic Murmur - GI/Abdominal Exam GI & Abdominal Exam: Normal Bowel Sounds, Unremarkable - Extremities Exam Extremities exam: normal capillary refill, normal inspection Additional comments: 2/5 left upper and lower extremities secondary to CVA. - Neurological Exam Neurological exam: Alert, Oriented x3 - Psychiatric Exam Psychiatric exam: Depressed Additional comments: Denies SI/HI - Skin Skin Exam: Dry, Intact, Normal Color, Warm Discharge Plan - Discharge Medications Prescriptions: Warfarin Sodium [Jantoven] 3 mg PO DAILY #30 tablet - Follow Up Plan Condition: FAIR Disposition: DISCHARGE TO PSYCH HOSPITAL Patient education suggested?: Yes Instructions: Preventing Falls in the Older Adult, Hypothyroidism (Underactive Thyroid) (DC) Additional Instructions: follow up with primary MD 1 week Referrals: Allyson Starr MD [Medical Doctor] - Simba Cloud MD [Family Provider] - <Shelley Meza - Last Filed: 07/11/18 21:40> Provider - Provider Date of Admission: 07/08/18 11:04 Attending physician: Sedrick Tanner Consults: 07/07/18 11:53 Endocrinology Consult Routine Comment: Consulting Provider: Allyson Starr Consulting Physician: Allyson Starr Reason for Consult: Hypothyroidism; TSH: 120's 07/10/18 10:11 Psychiatry Consult Routine Comment: Consulting Provider: Aryan Kauffman Consulting Physician: Aryan Kauffman Reason for Consult: Depression 07/11/18 06:46 Social Work Referral Routine Comment: needs home services Physician Instructions: Reason For Exam: needs home services Hospital Course - Lab Results Lab Results: Most Recent Lab Values WBC 5.1 K/uL (4.8-10.8) 07/10/18 06:21 RBC 4.02 Mil/uL (3.80-5.20) 07/10/18 06:21 Hgb 12.3 g/dL (12.0-16.0) 07/10/18 06:21 Hct 36.5 % (34.0-47.0) 07/10/18 06:21 MCV 90.8 fl (81.0-99.0) 07/10/18 06:21 MCH 30.5 pg (27.0-31.0) 07/10/18 06:21 MCHC 33.6 g/dL (33.0-37.0) 07/10/18 06:21 RDW 15.2 % (11.5-14.5) H 07/10/18 06:21 Plt Count 164 K/uL (130-400) 07/10/18 06:21 MPV 8.2 fl (7.2-11.7) 07/07/18 06:30 Neut % (Auto) 43.3 % (50.0-75.0) L 07/07/18 06:30 Lymph % (Auto) 48.8 % (20.0-40.0) H 07/07/18 06:30 [place] % (Auto) 5.8 % (0.0-10.0) 07/07/18 06:30 Eos % (Auto) 1.5 % (0.0-4.0) 07/07/18 06:30 Baso % (Auto) 0.6 % (0.0-2.0) 07/07/18 06:30 Neut # (Auto) 2.5 K/uL (1.8-7.0) 07/07/18 06:30 Lymph # (Auto) 2.8 K/uL (1.0-4.3) 07/07/18 06:30 [place] # (Auto) 0.3 K/uL (0.0-0.8) 07/07/18 06:30 Eos # (Auto) 0.1 K/uL (0.0-0.7) 07/07/18 06:30 Baso # (Auto) 0.0 K/uL (0.0-0.2) 07/07/18 06:30 PT 22.5 Seconds (9.8-13.1) H 07/11/18 06:33 INR 2.0 07/11/18 06:33 APTT 37.5 Seconds (25.6-37.1) H 07/07/18 06:30 Sodium 136 mmol/l (132-148) 07/10/18 06:21 Potassium 4.1 MMOL/L (3.6-5.0) 07/10/18 06:21 Chloride 107 mmol/L (98-107) 07/10/18 06:21 Carbon Dioxide 25 mmol/L (22-30) 07/10/18 06:21 Anion Gap 8 (10-20) L 07/10/18 06:21 BUN 16 mg/dl (7-17) 07/10/18 06:21 Creatinine 0.5 mg/dl (0.7-1.2) L 07/10/18 06:21 Est GFR ( Amer) > 60 07/10/18 06:21 Est GFR (Non-Af Amer) > 60 07/10/18 06:21 Random Glucose 93 mg/dL (65-105) 07/10/18 06:21 Calcium 8.6 mg/dL (8.4-10.2) 07/10/18 06:21 Total Bilirubin 0.5 mg/dl (0.2-1.3) 07/07/18 06:30 AST 30 U/L (14-36) 07/07/18 06:30 ALT 48 U/L (9-52) 07/07/18 06:30 Alkaline Phosphatase 78 U/L (38-126) 07/07/18 06:30 Total Creatine Kinase 223 U/L (30-135) H 07/07/18 05:50 Troponin I 0.0410 ng/mL (0.00-0.120) 07/07/18 12:28 Total Protein 6.7 G/DL (6.3-8.2) 07/07/18 06:30 Albumin 3.8 g/dL (3.5-5.0) 07/07/18 06:30 Globulin 2.9 gm/dL (2.2-3.9) 07/07/18 06:30 Albumin/Globulin Ratio 1.3 (1.0-2.1) 07/07/18 06:30 Free T4 0.36 ng/dL (0.78-2.19) L 07/07/18 13:12 Thyroxine (T4) 3.16 ug/dl (5.5-11.0) L 07/08/18 06:05 Free T3 pg/mL 1.63 pg/mL (2.77-5.27) L 07/07/18 13:12 TSH 3rd Generation 167.00 mIU/ML (0.46-4.68) H 07/08/18 06:05 Thyroperoxidase Ab >900 IU/mL (<9) H 07/08/18 06:05 Attending/Attestation - Attestation I have personally seen and examined this patient.: Yes I have fully participated in the care of the patient.: Yes I have reviewed all pertinent clinical information, including history, physical exam and plan: Yes Notes (Text): agree with findings and plan as above.
[2018-07-11 16:31] VITALS: BP 124/76; PULSE 62; RESP 18; TEMP 98.7; O2SAT 95
== END 2018-07-11 18:32 | DRG 424 ==
LOC: H.ER 20:58 → H.ERHOLD 07-07 02:30 → H.MEDSURG1 07-07 04:03 → OBSVTOIN 07-08 11:04
PROVIDERS: ADMIT Internal Medicine; ATTEND Internal Medicine
DX: E06.3 Autoimmune thyroiditis (principal); S09.90XA Unspecified injury of head, initial encounter; F31.5 Bipolar disorder, current episode depressed, severe, with psychotic features; I69.354 Hemiplegia and hemiparesis following cerebral infarction affecting left non-dominant side; G35 Multiple sclerosis; I10 Essential (primary) hypertension; E78.5 Hyperlipidemia, unspecified; E78.00 Pure hypercholesterolemia, unspecified; I25.10 Atherosclerotic heart disease of native coronary artery without angina pectoris; J45.909 Unspecified asthma, uncomplicated; M50.321 Other cervical disc degeneration at C4-C5 level; W18.39XA Other fall on same level, initial encounter; F17.210 Nicotine dependence, cigarettes, uncomplicated; Z95.2 Presence of prosthetic heart valve; Z95.0 Presence of cardiac pacemaker; Z95.1 Presence of aortocoronary bypass graft; Z95.5 Presence of coronary angioplasty implant and graft; Z85.05 Personal history of malignant neoplasm of liver; Z79.01 Long term (current) use of anticoagulants; Z91.81 History of falling; Y92.009 Unspecified place in unspecified non-institutional (private) residence as the place of occurrence of the external cause

== ENCOUNTER 2018-07-11 18:30 | Inpatient (IN) | payer MEDICAID ==
[2018-07-11 18:55] VITALS: BMI 30.4
[2018-07-11] MEDS ORDERED: Magnesium Hydroxide Susp 30 ml UD PO PRN (20:21)
[2018-07-11] MEDS ORDERED: Bismuth Subsalicylate 262 mg/15 ml Sus (240 ml) PO PRN (20:21)
[2018-07-11] MEDS ORDERED: Alum-Mag Hydrox-Simethicone Susp (30 mL) PO PRN (20:21)
--- NOTE | 2018-07-11 23:14 | PCM.BM ---
<Mitch Adams - Last Filed: 07/11/18 23:11> Treatment Plan Problems - Problems identified on initial assessmt High Risk: Injury Date Initiated: 07/11/18 Time Initiated: 23:11 Assessment reference: NA Status: Active Priority: 1 Altered Thought Process Date Initiated: 07/11/18 Time Initiated: 23:11 Assessment reference: NA Status: Active Priority: 2 Depression Date Initiated: 07/11/18 Time Initiated: 23:12 Assessment reference: NA Status: Active Priority: 3 Social Isolation Date Initiated: 07/11/18 Time Initiated: 23:12 Assessment reference: NA Status: Active Priority: 4 Activity Intolerance Date Initiated: 07/11/18 Time Initiated: 23:14 Assessment reference: NA Status: Active Priority: 5 Altered Sleep Patterns Date Initiated: 07/11/18 Time Initiated: 23:14 Assessment reference: NA Status: Active Priority: 6 Self Care Deficit Date Initiated: 07/11/18 Time Initiated: 23:14 Assessment reference: NA Status: Active Priority: 7 Auditory Hallucinations Date Initiated: 07/11/18 Time Initiated: 23:14 Assessment reference: NA Status: Active () Priority: 8 Hopelessness/Helplessness Date Initiated: 07/11/18 Time Initiated: 23:15 Assessment reference: NA Status: Active Priority: 9 Feelings of Worthlessness Date Initiated: 07/11/18 Time Initiated: 23:15 Assessment reference: NA Status: Active Priority: 10 Treatment assets and liabiliti Patient Assests: adapts well, cooperative, educated, insightful, good support system, good interpersonal skills Patient Liabilities: live alone, financial problems, medical problems - Milieu Protocol Maintain good personal hygiene: daily Encourage regular showers, daily Remind patient to perform daily oral care, daily Assist patient to perform ADL's Conduct patient checks and document Observation sheet: Q15 minutes Maintain personal safety: every shift Educate patient to report safety concerns to staff, every shift Monitor environment for contraband/sharps Medication safety: Monitor for expected outcome, potential side effects: every shift, Assess barriers to learning: every shift, Assess readiness for medication education: every shift <Zan Reeder - Last Filed: 07/13/18 17:03> Family Contact Family involvement: Family/SO is involved Family contact: Patient agrees to contact, Family has been contacted by patient, Telephone contact initiated by staff Family contact name: Jorge Bourgeois - Son Family contacted how many times per week?: 2 Family contact comment: Stakeholder Manager spoke with pt's son, Jorge [phone], to gain collateral information. As per Jorge pt has been severely depressed since the of her . Pt eats unhealthy food and smokes cigarettes all day. Pt is not taking care of herself since her . Jorge reported that his parents kept thieir issues and mental health private and children were not aware of them until pt's passed. Jorge reported that if pt had suicidal thoughts or hallucinations she would not tell him. Jorge is very concerned for his mother at this time and feels that she needs continued inpatient care. Jorge will attempt to see pt on 07/14/18. - Goals for Treatment Patient goals for treatment: Pt initially lacked motivation and energy and was unable to create goals for hrself, yet has gained strength and would like her depression decreased and the hallucinations to clear off. Pt has an existing mental health diagnosis that is now coupled with the situational depression from the of her and both need to be addressed with medication and therapy. Discharge/Continuing Care - Education Needs Education Needs: Patient Medication, Patient Diagnosis/Disease Process, Patient Coping Skills, Patient Community resources, Patient Aftercare Safety Plan - Discharge Discharge Criteria: Tolerates medication w/o severe side effects, Free of Suicidal thoughts, Free of paranoid thoughts, Free of agitation, Normal sleep pattern, Ability to care for self, Reduction of target symptoms Discharge to:: Home - Treatment Team Participation Discussed with Family/SO: Yes Was Patient/Family/SO present at Treatment Team Meeting: Yes <Alka Alonso - Last Filed: 07/14/18 09:50> - Diagnosis (1) Bipolar disorder with depression Status: Acute Interventions: Medication management, Individual and group therapy, Psychoeducation 07/14/18 09:50 <Lunaa Barrera - Last Filed: 07/15/18 08:21> Family Contact Family involvement: Family/SO is involved Family contact: Patient agrees to contact, Family has been contacted by patient, Telephone contact initiated by staff Family contact name: Jorge - son Family contacted how many times per week?: 2 Family contact comment: [phone] - Goals for Treatment Patient goals for treatment: Pt will improve overall mood. Pt will be free of suicide ideation. Pt will comply with prescribed medications. Pt will attend clinical and activity groups. Pt will interact with peers and staff members appropriately. Discharge/Continuing Care - Education Needs Education Needs: Family Medication, Family Diagnosis/Disease Process, Family Coping Skills, Family Placement options, Family Community resources, Family Activities of Daily Living, Family Nutrition, Family Uses of Medical Equipment, Family Health Practices/Safety, Family Personal Hygiene/Grooming, Family Afte rcare Safety Plan, Patient Medication, Patient Diagnosis/Disease Process, Patient Coping Skills, Patient Placement options, Patient Community resources, Patient Activities of Daily Living, Patient Nutrition, Patient Uses of Medical Equipment, Patient Health Practices/Safety, Patient Personal Hygiene/Grooming, Patient Aftercare Safety Plan - Discharge Discharge Criteria: Tolerates medication w/o severe side effects, Free of Suicidal thoughts, Free of agitation, Normal sleep pattern, Ability to care for self, Reduction of target symptoms Discharge to:: Home - Additional Comments 07/15/18 08:16 Pt seen and discussed in team meeting. Reason for hospitalization reviewed and discussed. Pt reported feeling "sad." Pt reported her in January 2018 and since then she has been feeling sad and very tearful. Pt reported several stressors contributing to increased sadness and unable to focus and concentrate. Pt reported financial issues contributing to lack of food at home. Pt reported difficulty moving around due to several health issues. Pt reported she does not leave her apartment due to physical limitations. Pt reported her son, Jorge comes to the house int he AM to give her breakfast but then she is alone for the reminder of the day. Pt reported she was previously linked to [facility] services, but is no longer receiving services and she mccrary snot know why. Pt reported AH one week ago. Pt denied SI and HI. Pt denied any paranoia at this time. Pt's social and medical issues reviewed and discussed. Pt's medications reviewed. [place] plan reviewed and discussed, pt verbalized agreement. Pt signed written consent for son, Jorge ([phone]). Zan CASTILLO to continue to follow up with pt and link pt to appropriate level of care and services post discharge. - Treatment Team Participation Discussed with Family/SO: No Was Patient/Family/SO present at Treatment Team Meeting: Yes
[2018-07-12] MEDS ORDERED: Levothyroxine 150 MCG TAB PO SCH (06:30)
[2018-07-12 06:46] LABS: HEMOGLOBIN 12.9 g/dL (12.0-16.0); MEAN CELL VOLUME 91.2 fl (81.0-99.0); MEAN CORPUSCULAR HEMOGLOBIN 30.4 pg (27.0-31.0); MEAN CORPUSCULAR HGB CONC 33.4 g/dL (33.0-37.0); RBC 4.26 Mil/uL (3.80-5.20); RED CELL DISTRIBUTION WIDTH 14.9 % (11.5-14.5)
[2018-07-12 06:52] LABS: INR 2.3; PROTHROMBIN TIME 25.6 Seconds (9.8-13.1)
[2018-07-12 07:07] LABS: BLOOD UREA NITROGEN 25 mg/dl (7-17); CALCIUM 8.6 mg/dL (8.4-10.2); GFR NON-AFRICAN AMERICAN > 60; HDL CHOLESTEROL 33 MG/DL (30-70)
[2018-07-12 07:08] LABS: LDL CHOLESTEROL 140 mg/dL (0-129)
[2018-07-12 07:26] LABS: % IRON SATURATION 15 % (20-55); TOTAL IRON BINDING CAPACITY 309 ug/dL (250-450)
[2018-07-12 07:28] LABS: IRON 46 ug/dL (37-170)
[2018-07-12] MEDS: Metoprolol Succinate 25 mg XL Tab PO SCH (08:56)
--- NOTE | 2018-07-12 11:29 | PCM.PSYCH ---
Initial Psychiatric Evaluation - Initial Psychiatric Evaluation Type of Admission: Voluntary Current Medications: Active Medications Generic Name Dose Route Start Last Admin Trade Name Freq PRN Reason Stop Dose Admin Acetaminophen 650 mg 07/11/18 20:21 Tylenol 325mg Tab PO Q4 PRN Pain, moderate (4-7) Al Hydrox/Mg Hydrox/Simethicone 30 ml 07/11/18 20:21 Maalox Plus 30 Ml PO Q4 PRN Dyspepsia Atorvastatin Calcium 80 mg 07/11/18 22:00 07/11/18 21:32 Lipitor PO 80 mg HS KATHLEEN Administration Bismuth Subsalicylate 524 mg 07/11/18 20:21 07/11/18 23:18 Pepto-Bismol PO 524 mg Q4 PRN Administration Diarrhea Famotidine 20 mg 07/12/18 09:00 07/12/18 08:54 Pepcid PO 20 mg DAILY KATHLEEN Administration Ferrous Sulfate 325 mg 07/12/18 09:00 07/12/18 08:54 Feosol PO 325 mg DAILY KATHLEEN Administration Levothyroxine Sodium 150 mcg 07/12/18 06:30 07/12/18 06:45 Synthroid PO 150 mcg DAILY@0630 KATHLEEN Administration Lisinopril 5 mg 07/12/18 09:00 07/12/18 08:55 Zestril PO Not Given DAILY [facility] Lorazepam 0.5 mg 07/11/18 20:21 Ativan PO 07/25/18 20:22 HS PRN Insomnia Lorazepam 0.5 mg 07/11/18 20:21 Ativan PO 07/25/18 20:22 Q6 PRN Anixety/Agitation Magnesium Hydroxide 30 ml 07/11/18 20:21 Milk Of Magnesia PO HS PRN Constipation Metoprolol Succinate 25 mg 07/12/18 09:00 07/12/18 08:56 Toprol Xl PO Not Given DAILY [facility] Quetiapine Fumarate 400 mg 07/11/18 22:00 07/11/18 21:32 Seroquel PO 400 mg HS KATHLEEN Administration Tramadol HCl 50 mg 07/11/18 20:29 07/11/18 21:35 Ultram PO 50 mg Q6 PRN Administration Pain, severe (8-10) Warfarin Sodium 3 mg 07/12/18 09:00 Coumadin PO DAILY [facility] Protocol Past Psychiatric History - Past Psychiatric History Pertinent Medical Hx (Current Medical&Sleep Prob, Allergies): Allergies Allergy/AdvReac Type Severity Reaction Status Date / Time No Known Allergies Allergy Verified 05/09/16 01:51 Ferrous Sulfate [Feosol] 325 mg PO DAILY 11/22/15 Famotidine [Pepcid] 20 mg PO DAILY 11/08/16 Lisinopril [Prinivil] 5 mg PO DAILY 11/08/16 Warfarin [Coumadin] 4 mg PO QAM 11/13/16 Atorvastatin [Lipitor] 80 mg PO HS tab 11/20/16 Levothyroxine [Synthroid] 150 mcg PO DAILY@0630 tab 11/20/16 QUEtiapine [SEROquel] 400 mg PO HS #60 tab 11/20/16 traMADol [Ultram] 50 mg PO Q6 PRN tab 11/20/16 Acetaminophen [Tylenol 325mg tab] 650 mg PO Q6 PRN tab 07/11/18 Warfarin Sodium [Jantoven] 3 mg PO DAILY #30 tablet 07/11/18
--- NOTE | 2018-07-12 11:31 | PCM.PSYCH ---
Initial Psychiatric Evaluation - Initial Psychiatric Evaluation Type of Admission: Voluntary Chief Complaint (in patient's own words): was admitted to for status post fall at home pt reportedly taking coumadin and reportedly hx of etoh Patient's Reaction to Hospitalization: pt signed in voluntarily History of Present Illness and Precipitating Events: was at home reported was dizzy ?etoh "slit down to flow and reported injured left ankle and hit back of head", reportedly pt came to hospital was evaluated and admitted to . pt reports history of depression and suicidal thoughts after of 39 years in january 2018. pt reportedly has history of depression, was treated by a dr mosley affiliated with [facility]. pt reportedly has not seen dr mosley in " a long time). reportedly was seeing dr valenzuela in [place] (primary care) who reportedly renewed psychiatric medications. pt reports past history of suicidal attempt "several years ago took pills". reports previous admission for psychiatric reasons. pt reports drinks socially denies having "alcohol problem". denies having experience withdrawals. pt was cleared medically on and signed in voluntarily to [facility]. d Current Medications: Active Medications Generic Name Dose Route Start Last Admin Trade Name Freq PRN Reason Stop Dose Admin Acetaminophen 650 mg 07/11/18 20:21 Tylenol 325mg Tab PO Q4 PRN Pain, moderate (4-7) Al Hydrox/Mg Hydrox/Simethicone 30 ml 07/11/18 20:21 Maalox Plus 30 Ml PO Q4 PRN Dyspepsia Atorvastatin Calcium 80 mg 07/11/18 22:00 07/11/18 21:32 Lipitor PO 80 mg HS KATHLEEN Administration Bismuth Subsalicylate 524 mg 07/11/18 20:21 07/11/18 23:18 Pepto-Bismol PO 524 mg Q4 PRN Administration Diarrhea Famotidine 20 mg 07/12/18 09:00 07/12/18 08:54 Pepcid PO 20 mg DAILY KATHLEEN Administration Ferrous Sulfate 325 mg 07/12/18 09:00 07/12/18 08:54 Feosol PO 325 mg DAILY KATHLEEN Administration Levothyroxine Sodium 150 mcg 07/12/18 06:30 07/12/18 06:45 Synthroid PO 150 mcg DAILY@0630 KATHLEEN Administration Lisinopril 5 mg 07/12/18 09:00 07/12/18 08:55 Zestril PO Not Given DAILY KATHLEEN Lorazepam 0.5 mg 07/11/18 20:21 Ativan PO 07/25/18 20:22 HS PRN Insomnia Lorazepam 0.5 mg 07/11/18 20:21 Ativan PO 07/25/18 20:22 Q6 PRN Anixety/Agitation Magnesium Hydroxide 30 ml 07/11/18 20:21 Milk Of Magnesia PO HS PRN Constipation Metoprolol Succinate 25 mg 07/12/18 09:00 07/12/18 08:56 Toprol Xl PO Not Given DAILY KATHLEEN Quetiapine Fumarate 400 mg 07/11/18 22:00 07/11/18 21:32 Seroquel PO 400 mg HS KATHLEEN Administration Tramadol HCl 50 mg 07/11/18 20:29 07/11/18 21:35 Ultram PO 50 mg Q6 PRN Administration Pain, severe (8-10) Warfarin Sodium 3 mg 07/12/18 09:00 Coumadin PO DAILY [facility] Protocol Past Psychiatric History - Past Psychiatric History Previous Treatment History: Inpatient Prior Professional Help: pt inpt opd private psychiatrist Prior Psychiatric Treatment: [facility] History of Abuse: denies History of ETOH/Drug Use: reportedly socially Pertinent Medical Hx (Current Medical&Sleep Prob, Allergies): Allergies Allergy/AdvReac Type Severity Reaction Status Date / Time No Known Allergies Allergy Verified 05/09/16 01:51 Ferrous Sulfate [Feosol] 325 mg PO DAILY 11/22/15 Famotidine [Pepcid] 20 mg PO DAILY 11/08/16 Lisinopril [Prinivil] 5 mg PO DAILY 11/08/16 Warfarin [Coumadin] 4 mg PO QAM 11/13/16 Atorvastatin [Lipitor] 80 mg PO HS tab 11/20/16 Levothyroxine [Synthroid] 150 mcg PO DAILY@0630 tab 11/20/16 QUEtiapine [SEROquel] 400 mg PO HS #60 tab 11/20/16 traMADol [Ultram] 50 mg PO Q6 PRN tab 11/20/16 Acetaminophen [Tylenol 325mg tab] 650 mg PO Q6 PRN tab 07/11/18 Warfarin Sodium [Jantoven] 3 mg PO DAILY #30 tablet 07/11/18 Review of Systems - Neurological Additional comments: moves all extremities denies changes in neurologic function - Psychiatric Psychiatric: Abnormal Sleep Pattern, Anxiety, Depression Mental Status Examination - Personal Presentation Personal Presentation: Looks stated age - Affect Affect: Constricted - Motor Activity Motor Activity: Psychomotor Retardation - Reliability in Providing Information Reliability in Providing Information: Fair - Speech Speech: Organized - Formal Thought Process Formal Thought Process: No Impairment - Cognitive Functions Orientation: Person, Place, Situation, Time Sensorium: Alert Attention/Concentration: Attentive Judgement: Imparied, as evidence by: Other - Risk Risk: Suicidal - Strength & Assets Inventory Strength & Assets Inventory: Life experience (loss of of 39 years) DSM 5 DX - DSM 5 DSM 5 Diagnosis: 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
--- NOTE | 2018-07-12 18:00 | CP.PCM.CON ---
History of Present Illness - History of Present Illness History of Present Illness: 57 yo female with history of alcohol abuse admitted because of worsening depression. Review of Systems - Review of Systems All systems: reviewed and no additional remarkable complaints except (aside from those mentioned above, 12 point system review were negative by me) Past Patient History - Infectious Disease Hx of Infectious Diseases: None - Tetanus Immunizations Tetanus Immunization: Unknown - Past Medical History & Family History Past Medical History?: Yes - Past Social History Smoking Status: Light Smoker < 10 Cigarettes Daily Chewing Tobacco Use: No Cigar Use: No Alcohol: None Drugs: Denies - CARDIAC Hx Cardiac Disorders: Yes Hx Hypercholesterolemia: Yes Hx Hypertension: Yes Hx Pacemaker: Yes - PULMONARY Hx Respiratory Disorders: Yes Hx Asthma: Yes Hx Bronchitis: Yes (4x) Hx Pneumonia: Yes - NEUROLOGICAL Hx Neurological Disorder: Yes HX Cerebrovascular Accident: Yes Hx Multiple Sclerosis: Yes (off meds 1 1/2 yrs) Hx Seizures: Yes (off meds 1 1/2 yrs) - HEENT Hx HEENT Problems: No - RENAL Hx Chronic Kidney Disease: No - ENDOCRINE/METABOLIC Hx Endocrine Disorders: Yes Hx Hypothyroidism: Yes - HEMATOLOGICAL/ONCOLOGICAL Hx Blood Disorders: No Hx Human Immunodeficiency Virus (HIV): No - INTEGUMENTARY Hx Dermatological Problems: Yes (Eczema) - MUSCULOSKELETAL/RHEUMATOLOGICAL Hx Musculoskeletal Disorders: Yes Hx Arthritis: Yes (knee,neck,fingers) Hx Falls: Yes - GASTROINTESTINAL Hx Gastrointestinal Disorders: Yes Hx Gastritis: Yes - GENITOURINARY/GYNECOLOGICAL Hx Genitourinary Disorders: No - PSYCHIATRIC Hx Substance Use: Yes (Herion, 17 years ago) - SURGICAL HISTORY Hx Surgeries: Yes Hx Coronary Artery Bypass Graft: Yes (x5 in 10/2015) Hx Coronary Stent: Yes (left circumflex) - ANESTHESIA Hx Anesthesia: Yes Hx Anesthesia Reactions: No Hx Malignant Hyperthermia: No Meds Allergies/Adverse Reactions: Allergies Allergy/AdvReac Type Severity Reaction Status Date / Time No Known Allergies Allergy Verified 05/09/16 01:51 - Medications Medications: Current Medications Acetaminophen (Tylenol 325mg Tab) 650 mg PO Q4 PRN PRN Reason: Pain, moderate (4-7) Al Hydrox/Mg Hydrox/Simethicone (Maalox Plus 30 Ml) 30 ml PO Q4 PRN PRN Reason: Dyspepsia Atorvastatin Calcium (Lipitor) 80 mg PO HS KATHLEEN Last Admin: 07/11/18 21:32 Dose: 80 mg Bismuth Subsalicylate (Pepto-Bismol) 524 mg PO Q4 PRN PRN Reason: Diarrhea Last Admin: 07/11/18 23:18 Dose: 524 mg Famotidine (Pepcid) 20 mg PO DAILY [facility] Last Admin: 07/12/18 08:54 Dose: 20 mg Ferrous Sulfate (Feosol) 325 mg PO DAILY [facility] Last Admin: 07/12/18 08:54 Dose: 325 mg Levothyroxine Sodium (Synthroid) 150 mcg PO DAILY@0630 [facility] Last Admin: 07/12/18 06:45 Dose: 150 mcg Lisinopril (Zestril) 5 mg PO DAILY [facility] Last Admin: 07/12/18 08:55 Dose: Not Given Lorazepam (Ativan) 0.5 mg PO HS PRN PRN Reason: Insomnia Stop: 07/25/18 20:22 Lorazepam (Ativan) 0.5 mg PO Q6 PRN PRN Reason: Anixety/Agitation Stop: 07/25/18 20:22 Magnesium Hydroxide (Milk Of Magnesia) 30 ml PO HS PRN PRN Reason: Constipation Metoprolol Succinate (Toprol Xl) 25 mg PO DAILY [facility] Last Admin: 07/12/18 08:56 Dose: Not Given Quetiapine Fumarate (Seroquel) 400 mg PO HS [facility] Last Admin: 07/11/18 21:32 Dose: 400 mg Tramadol HCl (Ultram) 50 mg PO Q6 PRN PRN Reason: Pain, severe (8-10) Last Admin: 07/11/18 21:35 Dose: 50 mg Physical Exam - Constitutional Appears: No Acute Distress - Head Exam Head Exam: ATRAUMATIC - Eye Exam Eye Exam: absent: Scleral icterus - ENT Exam ENT Exam: Mucous Membranes Moist - Neck Exam Neck exam: Negative for: Meningismus - Respiratory Exam Respiratory Exam: absent: Rales, Rhonchi, Wheezes, Respiratory Distress - Cardiovascular Exam Cardiovascular Exam: REGULAR RHYTHM, +S1, +S2 - GI/Abdominal Exam GI & Abdominal Exam: Soft. absent: Tenderness - Rectal Exam Rectal Exam: Deferred - Neurological Exam Neurological exam: Alert, Motor Sensory Deficit (left sided weakness), Oriented x3 - Psychiatric Exam Psychiatric exam: Normal Affect - Skin Skin Exam: Dry, Intact Results - Vital Signs Recent Vital Signs: Last Vital Signs Temp 98.4 F 07/12/18 16:19 Pulse 53 L 07/12/18 16:19 Resp 18 07/12/18 16:19 BP 125/74 07/12/18 16:19 Pulse Ox - Labs Result Diagrams: 07/12/18 05:50 07/12/18 05:50 Labs: Laboratory Results - last 24 hr 07/12/18 07/12/18 07/12/18 05:50 05:50 05:50 WBC 6.0 RBC 4.26 Hgb 12.9 Hct 38.8 MCV 91.2 MCH 30.4 MCHC 33.4 RDW 14.9 H Plt Count 178 PT INR Sodium 136 Potassium 4.3 Chloride 105 Carbon Dioxide 24 Anion Gap 11 BUN 25 H Creatinine 0.6 L Est GFR ( Amer) > 60 Est GFR (Non-Af Amer) > 60 Random Glucose 102 Calcium 8.6 Iron 46 TIBC 309 % Saturation 15 L Ferritin 105.0 Triglycerides 179 H D Cholesterol 218 H LDL Cholesterol Direct 140 H HDL Cholesterol 33 Vitamin B12 306 Folate 4.0 Free T4 Thyroxine (T4) 7.22 TSH 3rd Generation 52.20 H 07/12/18 07/12/18 05:50 05:50 WBC RBC Hgb Hct MCV MCH MCHC RDW Plt Count PT 25.6 H INR 2.3 Sodium Potassium Chloride Carbon Dioxide Anion Gap BUN Creatinine Est GFR ( Amer) Est GFR (Non-Af Amer) Random Glucose Calcium Iron TIBC % Saturation Ferritin Triglycerides Cholesterol LDL Cholesterol Direct HDL Cholesterol Vitamin B12 Folate Free T4 0.76 L Thyroxine (T4) TSH 3rd Generation Assessment & Plan (1) Depression Status: Acute Comment: psyche is managing (2) HTN (hypertension) Status: Chronic Comment: BP stable. continue Lisinopril and Metoprolol (3) CVA (cerebral vascular accident) Status: Chronic Comment: on Coumadin and statin (4) Hypothyroid Status: Chronic Comment: TSH elevated to 52.20. increase Levothyroxine to 200 mcg. endocrinology consult with Dr Starr
[2018-07-13] MEDS: Levothyroxine 200 MCG TAB PO SCH (05:47)
[2018-07-13 08:58] LABS: INR 2.4; PROTHROMBIN TIME 27.4 Seconds (9.8-13.1)
[2018-07-13] MEDS: Metoprolol Succinate 25 mg XL Tab PO SCH (09:06)
--- NOTE | 2018-07-13 18:10 | PCM.PYCHPN ---
Psychiatric Progress Note - Psychiatric Progress Note Patient seen today, length of contact: chart reviewed, case discussed with team, pt seen Patient Chief Complaint: pt reports depression was increasing after of several months ago. 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, reportedly increasing depression, Problems Identified/Issues Discussed: alteration in mood alteration in cognition alteration in self care grief/loss Medical Problems: per chart Diagnostic Results: per psychiatry per medicine per nursing per social work DSM 5 Symptoms Update: alteration cognition (delirium) 2nd to current uti alteration in mood alteration in self care Medication Change: Yes (start mirtazepine 7.5mg po hs) Medical Record Reviewed: Yes Consults ordered or reviewed: pt seen by hospitalist Mental Status Examination - Cognitive Function Orientation: Person, Place, Situation, Time Attention: WNL Concentration: WNL Association: WNL Fund of Knowledge: WNL Decription of patient's judgement and insights: impaired - Affect Affect: Constricted - Formal Thought Process Formal Thought Process: No Impairment - Homicidal Ideation Homicidal Ideation: No Goal/Treatment Plan - Goal/Treatment Plan Progress Toward Problem(s) and Goals/Treatment Plan: inpt milieu vital signs and clinical assessment per protocol and clinical assessment prns per unit protocol hospitalist consult continue home rx falls/bleeding precautions (pt on coumadin) team to re evaluate in am pt receiving prn tramadol may affect choice of antidepressant (serotonin) discharge planning progress Estimated Date of D/C: 07/18/18 - Smoking Cessation Smoking Cessation Initiated: No Reason for not providing: pt defers
[2018-07-13 19:49] LABS: SQUAMOUS EPITHIAL 4 /hpf (0-5); URINE BACTERIA OCC (<OCC); URINE BILIRUBIN NEGATIVE (NEGATIVE); URINE BLOOD SMALL (NEGATIVE); URINE CLARITY SLIGHTY-CLOUDY (Clear); URINE COLOR YELLOW (YELLOW); URINE GLUCOSE (UA) NEG (NEGATIVE); URINE LEUKOCYTE ESTERASE TRACE Leu/uL (Negative); URINE PROTEIN NEGATIVE (NEGATIVE); URINE UROBILINOGEN 0.2-1.0 mg/dL (0.2-1.0)
[2018-07-14] MEDS: Levothyroxine 200 MCG TAB PO SCH (05:30)
[2018-07-14 07:21] LABS: INR 2.3; PROTHROMBIN TIME 26.4 Seconds (9.8-13.1)
[2018-07-14] MEDS: Metoprolol Succinate 25 mg XL Tab PO SCH (10:02)
--- NOTE | 2018-07-14 10:24 | PCM.PYCHPN ---
Psychiatric Progress Note - Psychiatric Progress Note Patient seen today, length of contact: Pt evaluated, chart reviewed, case discussed w/ team Patient Chief Complaint: "I'm sad." Problems Identified/Issues Discussed: Patient reports feeling sad/depressed, was tearful on evaluation. She reports that she continues to mourn the of her . She report poor concentration. She denies acute AH/VH/SI/HI. She reports that she was not compliant with Seroquel prior to admission because of insurance issues. Medication Change: No Medical Record Reviewed: Yes Consults ordered or reviewed: Medicine consult Mental Status Examination - Cognitive Function Orientation: Person, Place, Situation, Time Attention: WNL Concentration: WNL Association: WNL Fund of Knowledge: [facility] Decription of patient's judgement and insights: Fair I/J - Mood Mood: Depressed - Affect Affect: Constricted, Depressed - Speech Speech: Appropriate - Formal Thought Process Formal Thought Process: No Impairment Psychotic Thoughts and Behaviors: No AH/VH/paranoia/delusions - Suicidal Ideation Suicidal Ideation: No - Homicidal Ideation Homicidal Ideation: No Goal/Treatment Plan - Goal/Treatment Plan Need for Continued Stay: Remain at risks for inpatient hospitalization, Severe depression anxiety Progress Toward Problem(s) and Goals/Treatment Plan: Bipolar Disorder -Continue Seroquel -Individual and group therapy -Medicine consult -Psychoeducation -Disposition planning Estimated Date of D/C: 07/18/18
[2018-07-15] MEDS: Levothyroxine 200 MCG TAB PO SCH (05:52)
[2018-07-15 06:31] VITALS: RESP 18
[2018-07-15 06:42] LABS: INR 1.7; PROTHROMBIN TIME 19.5 Seconds (9.8-13.1)
--- NOTE | 2018-07-15 08:41 | PCM.PYCHPN ---
Psychiatric Progress Note - Psychiatric Progress Note Patient seen today, length of contact: Pt evaluated, chart reviewed, case discussed w/ team Patient Chief Complaint: "I'm sad." Problems Identified/Issues Discussed: Patient reports that her mood is improving. She feels less depressed and is requesting to be discharged from the hospital. She is more hopeful for the future. She reports good sleep/appetite. No psychotic symptoms. No AH/VH/SI/HI. No adverse effects to medications reported. Medication Change: No Medical Record Reviewed: Yes Consults ordered or reviewed: Medicine consult Mental Status Examination - Cognitive Function Orientation: Person, Place, Situation, Time Memory: Intact Attention: WNL Concentration: WNL Association: WNL Fund of Knowledge: [facility] Decription of patient's judgement and insights: Fair I/J - Mood Mood: Depressed - Affect Affect: Broad - Speech Speech: Appropriate - Formal Thought Process Formal Thought Process: No Impairment Psychotic Thoughts and Behaviors: No AH/VH/paranoia/delusions - Suicidal Ideation Suicidal Ideation: No - Homicidal Ideation Homicidal Ideation: No Goal/Treatment Plan - Goal/Treatment Plan Need for Continued Stay: Severe depression anxiety Progress Toward Problem(s) and Goals/Treatment Plan: Bipolar Disorder -Continue Seroquel -Individual and group therapy -Medicine consult -Psychoeducation -Disposition planning- likely discharge tomorrow as patient is improving clinically Estimated Date of D/C: 07/16/18
[2018-07-15] MEDS: Metoprolol Succinate 25 mg XL Tab PO SCH (08:47)
[2018-07-15] MEDS: Tmp-Smz 800 mg-160 mg DS Tab PO SCH ×2 (12:52→21:11)
--- NOTE | 2018-07-16 05:07 | CON ---
DATE: 07/15/2018 ENDOCRINOLOGY CONSULTATION LOCATION: Room 306, [facility] unit. HISTORY OF PRESENT ILLNESS: This is a 57-year-old female with known history of hypothyroidism with underlying autoimmune thyroiditis, currently on levothyroxine replacement therapy and is now undergoing closely psychiatric evaluation and management with recent major depressive disorder and behavioral disturbances thereof. PAST MEDICAL HISTORY: As mentioned above, history of hypothyroidism, currently on levothyroxine given as 200 mcg once daily as ordered, history of generalized anxiety and depression with underlying chronic schizoaffective disorder with previous multiple admissions for major depression and behavioral disturbances, history of hypertension and dyslipidemia. FAMILY HISTORY: Positive for hypertension and heart disease. No known thyroid endocrinopathy. SOCIAL HISTORY: The patient has supportive family. The patient is also current active smoker. No other known substance use. Also admits to chronic alcoholism with multiple admissions for alcohol intoxication. REVIEW OF SYSTEMS: Admits to generalized body weakness with episodic bouts of dizziness and lightheadedness. No chest pains, palpitations or PNDs. Her oral intake has been variable with nausea and dyspepsia and habitual constipation. PHYSICAL EXAMINATION: GENERAL: This is an overweight female in no apparent distress. VITAL SIGNS: With a blood pressure of 150/90, pulse of 66 beats per minute and regular, temperature 98, respirations 20. Height is 5 feet 1 inch. Weight is 161 pounds. HEENT: Head is normocephalic. Eyes are anicteric with pink conjunctivae. Funduscopy not possible at this time. Ears, nose and throat otherwise normal. NECK: Supple. Thyroid gland is normal in size. No carotid bruits or any cervical adenopathy. CARDIOPULMONARY: Some adynamic precordium. S1 and S2 are slow and regular. Lungs show scattered rhonchi. ABDOMEN: Flat, soft with positive bowel sounds. EXTREMITIES: No peripheral edema. Pulses are +2 bilaterally. LABORATORY DATA: Thyroid studies showed a T4 or thyroxine of 7.22 with a TSH of 52.2 and a free T4 of 0.76. Her chemistry showed a BUN of 25, sodium 136, potassium 4.3, chloride 105, CO2 of 24, glucose 102 and creatinine 0.6. ASSESSMENT: This is a 57-year-old female with overt hypothyroidism noted both historically, clinically and biochemically most likely with underlying autoimmune thyroiditis. PLAN OF MANAGEMENT: We will repeat a comprehensive thyroid hormonal profile tomorrow with a total T4, free T4 and TSH with CMP and CBC levels as ordered. We will titrate her levothyroxine accordingly to optimize metabolic control. In the meantime, we will continue her levothyroxine given as 200 mcg once daily as ordered. We will obtain serial chemistries and supplement accordingly as needed. We will follow. Allyson Starr MD
[2018-07-16] MEDS: Levothyroxine 200 MCG TAB PO SCH (05:55)
[2018-07-16 06:21] LABS: HEMOGLOBIN 12.7 g/dL (12.0-16.0); MEAN CELL VOLUME 90.1 fl (81.0-99.0); MEAN CORPUSCULAR HEMOGLOBIN 30.1 pg (27.0-31.0); MEAN CORPUSCULAR HGB CONC 33.4 g/dL (33.0-37.0); RBC 4.23 Mil/uL (3.80-5.20); RED CELL DISTRIBUTION WIDTH 14.9 % (11.5-14.5); WHITE BLOOD COUNT 5.2 K/uL (4.8-10.8)
[2018-07-16 06:28] LABS: INR 1.5; PROTHROMBIN TIME 16.6 Seconds (9.8-13.1)
[2018-07-16 06:31] LABS: ALB/GLOB RATIO 1.3 (1.0-2.1); ALBUMIN 3.9 g/dL (3.5-5.0); ALT/SGPT 52 U/L (9-52); AST/SGOT 34 U/L (14-36); BLOOD UREA NITROGEN 18 mg/dl (7-17); GFR NON-AFRICAN AMERICAN > 60
[2018-07-16 06:40] VITALS: BP 101/68; PULSE 67; TEMP 97.2
[2018-07-16] MEDS: Tmp-Smz 800 mg-160 mg DS Tab PO SCH (08:33)
[2018-07-16] MEDS: Metoprolol Succinate 25 mg XL Tab PO SCH (08:34)
--- NOTE | 2018-07-16 09:23 | PCM.PYCHDC ---
Mental Status Examination - Mental Status Examination Orientation: Person, Place, Situation, Time Memory: Intact Mood: Neutral Affect: Broad Speech: Appropriate Attention: WNL Concentration: WNL Association: WNL Fund of Knowledge: WNL Formal Thought Process: No Impairment Description of patient's judgement and insight: Fair I/J Psychotic Thoughts and Behaviors: No AH/VH/paranoia/delusions Suicidal Ideation: No Current Homicidal Ideation?: No Discharge Summary - Discharge Note Reason for Hospitalization: 57 yo female w/ h/o bipolar disorder admitted with worsening depression in the context of non-compliance with medications. Laboratory Data: Abnormal Lab Results 07/16/18 07/16/18 07/16/18 05:46 05:46 05:46 WBC 5.2 RBC 4.23 Hgb 12.7 Hct 38.1 MCV 90.1 MCH 30.1 MCHC 33.4 RDW 14.9 H Plt Count 192 PT 16.6 H INR 1.5 Sodium 137 Potassium 4.0 Chloride 103 Carbon Dioxide 26 Anion Gap 12 BUN 18 H Creatinine 0.7 Est GFR ( Amer) > 60 Est GFR (Non-Af Amer) > 60 Random Glucose 95 Calcium 9.0 Magnesium 2.3 Total Bilirubin 0.5 AST 34 ALT 52 Alkaline Phosphatase 98 Total Protein 6.8 Albumin 3.9 Globulin 2.9 Albumin/Globulin Ratio 1.3 Free T4 Thyroxine (T4) 10.8 TSH 3rd Generation 8.58 H 07/16/18 05:46 WBC RBC Hgb Hct MCV MCH MCHC RDW Plt Count PT INR Sodium Potassium Chloride Carbon Dioxide Anion Gap BUN Creatinine Est GFR ( Amer) Est GFR (Non-Af Amer) Random Glucose Calcium Magnesium Total Bilirubin AST ALT Alkaline Phosphatase Total Protein Albumin Globulin Albumin/Globulin Ratio Free T4 1.26 Thyroxine (T4) TSH 3rd Generation Consultations:: List each consultation separately and include: 1. Reason for request. 2. Findings. 3. Follow-up Consultations: Medicine consult, Physical Therapy, Endocrinology consult Summary of Hospital Course include:: 1. Description of specific treatment plan utilized for patients during their course of treatmen. 2. Summarize the time- course for resolution of acute symptoms and/or regressed behaviors. 3. Describe issues identified and worked on during hospitalization. 4. Describe medication utilized. 5. Describe medical problems identified and treated. 6. Reassessment of suicide risk Summary of Hospital Course: Patient was admitted to the psychiatry unit. Individual and group therapy were provided. Patient was stabilized on Seroquel 400 mg PO HS. She denies acute depression/anxiety/AH/VH/SI/HI. She is psychiatrically stable for discharge at this time. Psychoeducation provided on the importance of compliance with treatment and medications. - Diagnosis (1) Bipolar disorder with depression Current Visit: No Status: Chronic - Final Diagnosis (DSM 5) Condition upon Discharge: STABLE DSM 5: Bipolar Disorder Disposition: HOME/ ROUTINE Follow-up Treatment Plan: Bipolar Disorder -Continue Seroquel -Discharge to home with outpatient follow-up Prescriptions/Medication Reconciliation: Atorvastatin [Lipitor] 80 mg PO HS #30 tab Famotidine [Pepcid] 20 mg PO DAILY #30 tab Ferrous Sulfate [Feosol] 325 mg PO DAILY #30 tab Levothyroxine [Synthroid] 200 mcg PO DAILY@0630 #30 tab Metoprolol Succinate XL [Toprol XL] 25 mg PO DAILY #30 tab Nicotine 14 mg/24 hr [Nicoderm CQ] 1 patch TD DAILY #30 patch QUEtiapine [SEROquel] 400 mg PO HS #60 tab Sulfamethoxazole/Trimethoprim [Bactrim DS Tab] 1 tab PO Q12 #12 tab traMADol [Ultram] 50 mg PO Q8 PRN #20 tab PRN Reason: Pain, Severe (8-10) - Smoking Cessation Smoking Cessation Medication prescribed: Yes - Antipsychotic Medications Pt discharged on 2 or more routine antipsychotic medications: No
== END 2018-07-16 12:15 | disposition home or self-care (01) | DRG 753 ==
LOC: H.STEP 18:57
PROVIDERS: ADMIT Psychiatry & Neurology Psychiatry; ATTEND Psychiatry & Neurology Psychiatry
PROC: GZHZZZZ Group Psychotherapy (ICD-10-PCS; principal; 2018-07-11)
DX: F31.30 Bipolar disorder, current episode depressed, mild or moderate severity, unspecified (principal); F05 Delirium due to known physiological condition; I10 Essential (primary) hypertension; E06.3 Autoimmune thyroiditis; F17.210 Nicotine dependence, cigarettes, uncomplicated; Z86.73 Personal history of transient ischemic attack (TIA), and cerebral infarction without residual deficits; Z91.14 Patient's other noncompliance with medication regimen; E78.00 Pure hypercholesterolemia, unspecified; N39.0 Urinary tract infection, site not specified; Z95.0 Presence of cardiac pacemaker; Z95.1 Presence of aortocoronary bypass graft; Z95.5 Presence of coronary angioplasty implant and graft

== ENCOUNTER 2018-08-08 13:13 | Emergency (ER) | payer MEDICAID ==
[2018-08-08 13:13] VITALS: BMI 27.3
[2018-08-08 13:17] VITALS: RESP 16; O2SAT 97
--- NOTE | 2018-08-08 15:57 | CT ---
Date of service: 08/08/2018 PROCEDURE: CT HEAD WITHOUT CONTRAST. HISTORY: fall/ headache COMPARISON: 07/06/2018 TECHNIQUE: Axial computed tomography images were obtained through the head/brain without intravenous contrast. Radiation dose: Total exam DLP = 792.29 mGy-cm. This CT exam was performed using one or more of the following dose reduction techniques: Automated exposure control, adjustment of the mA and/or kV according to patient size, and/or use of iterative reconstruction technique. FINDINGS: HEMORRHAGE: No intracranial hemorrhage. BRAIN: No mass effect or edema. Old right frontal encephalomalacia consistent with MCA territory infarct, unchanged in appearance. Old lacunar infarct head of left caudate nucleus. No evidence of acute infarct. VENTRICLES: Mild ex vacuo dilatation frontal horn right lateral ventricle. No hydrocephalus. CALVARIUM: Unremarkable. PARANASAL SINUSES: Unremarkable as visualized. No significant inflammatory changes. MASTOID AIR CELLS: Unremarkable as visualized. No inflammatory changes. OTHER FINDINGS: None. IMPRESSION: No intracranial hemorrhage.. Old right MCA territory infarct. Old left caudate head lacune. Otherwise negative.
--- NOTE | 2018-08-08 16:10 | ED PDOC ---
HPI: Trauma/Fall - HPI Time Seen by Provider: 08/08/18 13:51 Chief Complaint (Nursing): Trauma Chief Complaint (Provider): fall History Per: Patient History/Exam Limitations: no limitations Onset/Duration Of Symptoms: Hrs Associated Symptoms: denies: Dizziness, Dazed, LOC, Memory Impairment Additional History Per: Patient Additional Complaint(s): 57 year old female with history of hypertension, ischemic stroke (04/2016), hypothyroidism and depression presents to the emergency room with EMS after falling in the bathroom this afternoon. Patient states her dog defecated in the bathroom when attempting to clean, she turned and left foot twisted causing her to hit a wall. Patient states she slid down the wall until fitting the floor. She hit her head aganist the wall, denies loc. She states her ankle twisted leg bent backward. Patient has left sided upper and lower extremity weakness residual from stroke and walks with a cane. Patient states she was ambulating with cane at the time of the fall. Patient had her phone with her and was able to call 911 immediately. Patient denies dizzines, change in vision, shortness of breath, nausea and vomiting. Additionally patient reports transient left sided chest pain radiating to left arm yesterday. She states chest and arm pain have resolved. - Fall Fall:Prior To Injury: Tripped, Lost Balance Past Medical History Reviewed: Historical Data, Nursing Documentation, Vital Signs Vital Signs: Last Vital Signs Temp 98.7 F 08/08/18 13:17 Pulse 76 08/08/18 13:17 Resp 16 08/08/18 13:17 BP 156/79 H 08/08/18 13:17 Pulse Ox 97 08/08/18 13:17 Primary Care Provider: Simba Cloud - Medical History PMH: Anxiety, Arthritis (knee,neck,fingers), Asthma, Bipolar Disorder, Bronchitis (4x), CAD, CVA, Depression, Gastritis, HTN, Hypercholesterolemia, Hyperlipidemia, Hypothyroidism, Multiple Sclerosis (off meds 1 1/2 yrs), Pneumonia, Schizophrenia, Seizures (off meds 1 1/2 yrs) Denies: HIV, Chronic Kidney Disease - Surgical History Surgical History: CABG (x5 in 10/2015), Coronary Stent (left circumflex), P acemaker - Family History Family History: States: Unknown Family Hx, CAD, Hypertension - Living Arrangements Living Arrangements: Alone - Social History Alcohol: None Drugs: Denies - Immunization History Hx Tetanus Toxoid Vaccination: Yes Hx Influenza Vaccination: No Hx Pneumococcal Vaccination: No - Home Medications Home Medications: Ambulatory Orders Medication Instructions Recorded Levothyroxine [Synthroid] 200 mcg PO DAILY@0630 #30 tab 07/15/18 Magnesium Hydroxide [Milk Of 30 ml PO HS PRN udc 07/15/18 Magnesia] Nicotine 14 mg/24 hr [Nicoderm CQ] 1 patch TD DAILY #30 patch 07/15/18 Atorvastatin [Lipitor] 80 mg PO HS #30 tab 07/16/18 Famotidine [Pepcid] 20 mg PO DAILY #30 tab 07/16/18 Ferrous Sulfate [Feosol] 325 mg PO DAILY #30 tab 07/16/18 Metoprolol Succinate XL [Toprol XL] 25 mg PO DAILY #30 tab 07/16/18 QUEtiapine [SEROquel] 400 mg PO HS #60 tab 07/16/18 Sulfamethoxazole/Trimethoprim 1 tab PO Q12 #12 tab 07/16/18 [Bactrim DS Tab] Warfarin [Coumadin] 4 mg PO QD5 #5 tab 07/16/18 traMADol [Ultram] 50 mg PO Q8 PRN #20 tab 07/16/18 - Allergies Allergies/Adverse Reactions: Allergies Allergy/AdvReac Type Severity Reaction Status Date / Time No Known Allergies Allergy Verified 05/09/16 01:51 Review of Systems ROS Statement: Except As Marked, All Systems Reviewed And Found Negative Constitutional: Negative for: Fever, Chills, Sweats, Weakness Eyes: Negative for: Pain, Vision Change ENT: Negative for: Ear Pain, Mouth Pain, Throat Pain Cardiovascular: Positive for: Chest Pain (yesterday) Respiratory: Negative for: Shortness of Breath, SOB with Exertion Gastrointestinal: Negative for: Nausea, Vomiting, Abdominal Pain Musculoskeletal: Positive for: Leg Pain (left ankle and thigh pain) Skin: Negative for: Bruising Neurological: Positive for: Headache. Negative for: Weakness, Numbness, Incoordination, Change in Speech, Confusion, Altered Mental Status, Dizziness Physical Exam - Reviewed Nursing Documentation Reviewed: Yes Vital Signs Reviewed: Yes - Physical Exam Appears: Positive for: Well, Non-toxic, No Acute Distress Head Exam: Positive for: ATRAUMATIC, NORMAL INSPECTION, NORMOCEPHALIC Skin: Positive for: Normal Color, Warm, DRY Eye Exam: Positive for: Normal appearance, EOMI, PERRL. Negative for: Periorbital swelling, Periorbital tenderness ENT: Positive for: Normal ENT Inspection Neck: Positive for: Normal, Painless ROM, Supple Cardiovascular/Chest: Positive for: Regular Rate, Rhythm, Chest Non Tender, Murmur. Negative for: Edema Respiratory: Positive for: CNT, Normal Breath Sounds Gastrointestinal/Abdominal: Positive for: Normal Exam, Bowel Sounds, Soft. Negative for: Tenderness Back: Positive for: Normal Inspection Extremity: Positive for: Normal ROM, Tenderness (medial aspect of the ankle. femur tenderness, no deformity. neg for pelvic pain, pelvis is stable. ). Negative for: Deformity Neurological/Psych: Positive for: Awake, Alert, Normal Tone, Oriented, Motor/Sensory Deficits (left upper and lower extremity weakness residual from stroke, movement with assistance. sensation of lower and upper extremity intact. ) - Laboratory Results Result Diagrams: 08/08/18 17:00 08/08/18 17:00 - ECG ECG: Positive for: Viewed By Me ECG Rhythm: Positive for: Normal QRS Interpretation Of ECG: seen and interpretated by Dr. Kaur O2 Sat by Pulse Oximetry: 97 Medical Decision Making Medical Decision Making: --cbc --cmp --troponin --ekg --chest xray --left ankle --left femur --sacrum xray --ct head 18:45 Patient re-assessed at this time. Patient reports she feels better and wants to go home. Patient started crying concerned something was wrong. Labs reviewed by me, unremarkable. Patient instructed to follow-up with Dr. Cloud on Saturday for possible further PT and assistance with obtaining medication for depression. Patient states understanding and agrees with plan. Nursing to set up transport for transport home. Return to ED precautions given. Patient advised to use cane at all times for ambulation. Accession No. : [id number] Patient Name / ID : CARSON HERNANDEZ / [id number] Exam Date : 08/08/2018 15:54:26 ( Approved ) Study Comment : Sex / Age : F / 57Y Creator : Darrel Mtz MD Dictator : Darrel Mtz MD Contact Center Representative : Workers Compensation Analyst : Darrel Mtz MD Approver2 : Report Date : 08/08/2018 16:42:35 My Comment : Date of service: 08/08/2018 HISTORY: chest pain COMPARISON: Comparison made with chest radiograph dated 11/22/2015. TECHNIQUE: 1 view obtained. FINDINGS: LUNGS: No active pulmonary disease. PLEURA: No significant pleural effusion identified, no pneumothorax apparent. CARDIOVASCULAR: Sternotomy wires and CABG clips.. Apparent prostatic valve replacement. Heart size mildly enlarged unchanged. Suspect mild aortic atherosclerotic calcification present. No pulmonary vascular congestion. OSSEOUS STRUCTURES: No significant abnormalities. VISUALIZED UPPER ABDOMEN: Normal. OTHER FINDINGS: None. IMPRESSION: No active disease. Accession No. : [id number] Patient Name / ID : CARSON HERNANDEZ / [id number] Exam Date : 08/08/2018 15:54:26 ( Approved ) Study Comment : Sex / Age : F / 57Y Creator : Darrel Mtz MD Dictator : Darrel Mtz MD Contact Center Representative : Workers Compensation Analyst : Darrel Mtz MD Approver2 : Report Date : 08/08/2018 16:44:15 My Comment : Date of service: 08/08/2018 PROCEDURE: Left Ankle Radiographs. HISTORY: fall/ pain COMPARISON: Comparison made with prior radiographs of the left ankle 07/06/2018. TECHNIQUE: 3 views obtained. FINDINGS: BONES: No evidence of acute displaced fracture nor dislocation. The osseous structures appear intact. Small posterior surface calcaneal enthesophyte again noted. Mild diffuse demineralization. JOINTS: No significant osteoarthritis. Ankle mortise maintained. Talar dome intact SOFT TISSUES: Normal. OTHER FINDINGS: None. IMPRESSION: No evidence of acute displaced fracture nor dislocation. Mild diffuse demineralization. Accession No. : [id number] Patient Name / ID : CARSON Tracey [id number] Exam Date : 08/08/2018 15:54:26 ( Approved ) Study Comment : Sex / Age : Creator : Darrel Mtz MD Dictator : Darrel Mtz MD Contact Center Representative : Workers Compensation Analyst : Darrel Mtz MD Approver2 : Report Date : 08/08/2018 16:51:32 My Comment : Date of service: 08/08/2018 PROCEDURE: Left femur HISTORY: fall pain COMPARISON: Comparison made with prior study of the pelvis and left femur 07/07/2018. TECHNIQUE: AP views of the left femur performed. FINDINGS: No evidence of acute displaced fracture nor dislocation. The osseous structures intact.. There are 2 metallic clips seen within the soft tissues adjacent to the medial tibial plateau IMPRESSION: No evidence of acute displaced fracture nor dislocation. Accession No. : [id number] Patient Name / ID : CARSON Tracey [id number] Exam Date : 08/08/2018 15:54:26 ( Approved ) Study Comment : Sex / Age : Creator : Darrel Mtz MD Dictator : Darrel Mtz MD Contact Center Representative : Workers Compensation Analyst : Darrel Mtz MD Approver2 : Report Date : 08/08/2018 19:06:02 My Comment : Date of service: Note that 08/08/2018 PROCEDURE: Radiographs of the Sacrum and Coccyx HISTORY: fall COMPARISON: None available. TECHNIQUE: Frontal and lateral views of the sacrum and coccyx. 4 views obtained. FINDINGS: The study is limited with partial obscuration of the sacrum by overlying bowel related type artifact. BONES: No definitive radiographic evidence of acute displaced sacral or coccygeal fracture seen within limitation of the study. If symptoms persist or occult fracture suspected clinically consider follow-up CT scan of the sacrum and coccyx. Questionable incidental spina bifida occulta S1 segment SACROILIAC JOINTS: Unremarkable. OTHER FINDINGS: None. IMPRESSION: No definitive radiographic evidence of acute displaced fracture nor dislocation. If symptoms persist or occult fracture suspected clinically consider CT scan of the sacrum/coccyx. Disposition - Clinical Impression Clinical Impression: Fall - Patient ED Disposition Is Patient to be Admitted: No Counseled Patient/Family Regarding: Diagnosis - Disposition Disposition: Routine/Home Disposition Time: 19:00 Condition: IMPROVED Additional Instructions: FOLLOW-UP WITH PMD ON WITHIN 1 WEEK. Instructions: Preventing Falls Forms: [employer] (Belarusian) Print Language: [facility] [place] - POA Present On Arrival: None
--- NOTE | 2018-08-08 16:46 | RAD ---
Date of service: 08/08/2018 HISTORY: chest pain COMPARISON: Comparison made with chest radiograph dated 11/22/2015. TECHNIQUE: 1 view obtained. FINDINGS: LUNGS: No active pulmonary disease. PLEURA: No significant pleural effusion identified, no pneumothorax apparent. CARDIOVASCULAR: Sternotomy wires and CABG clips.. Apparent prostatic valve replacement. Heart size mildly enlarged unchanged. Suspect mild aortic atherosclerotic calcification present. No pulmonary vascular congestion. OSSEOUS STRUCTURES: No significant abnormalities. VISUALIZED UPPER ABDOMEN: Normal. OTHER FINDINGS: None. IMPRESSION: No active disease.
--- NOTE | 2018-08-08 16:47 | RAD ---
Date of service: 08/08/2018 PROCEDURE: Left Ankle Radiographs. HISTORY: fall/ pain COMPARISON: Comparison made with prior radiographs of the left ankle 07/06/2018. TECHNIQUE: 3 views obtained. FINDINGS: BONES: No evidence of acute displaced fracture nor dislocation. The osseous structures appear intact. Small posterior surface calcaneal enthesophyte again noted. Mild diffuse demineralization. JOINTS: No significant osteoarthritis. Ankle mortise maintained. Talar dome intact SOFT TISSUES: Normal. OTHER FINDINGS: None. IMPRESSION: No evidence of acute displaced fracture nor dislocation. Mild diffuse demineralization.
--- NOTE | 2018-08-08 16:54 | RAD ---
Date of service: 08/08/2018 PROCEDURE: Left femur HISTORY: fall pain COMPARISON: Comparison made with prior study of the pelvis and left femur 07/07/2018. TECHNIQUE: AP views of the left femur performed. FINDINGS: No evidence of acute displaced fracture nor dislocation. The osseous structures intact.. There are 2 metallic clips seen within the soft tissues adjacent to the medial tibial plateau IMPRESSION: No evidence of acute displaced fracture nor dislocation.
[2018-08-08 17:08] LABS: BASO % 0.6 % (0.0-2.0); EOS % 0.6 % (0.0-4.0); HEMOGLOBIN 13.9 g/dL (12.0-16.0); LYMPH # 2.6 K/uL (1.0-4.3); LYMPH % 39.5 % (20.0-40.0); MEAN CELL VOLUME 89.6 fl (81.0-99.0); MEAN CORPUSCULAR HEMOGLOBIN 30.1 pg (27.0-31.0); MEAN CORPUSCULAR HGB CONC 33.6 g/dL (33.0-37.0); MEAN PLATELET VOLUME 8.2 fl (7.2-11.7); MONO # 0.4 K/uL (0.0-0.8); NEUT # 3.5 K/uL (1.8-7.0); NEUT % 53.3 % (50.0-75.0); NRBC % 0.1 % (0.0-0.0); RBC 4.62 Mil/uL (3.80-5.20); RED CELL DISTRIBUTION WIDTH 14.2 % (11.5-14.5); WHITE BLOOD COUNT 6.6 K/uL (4.8-10.8)
[2018-08-08 17:47] LABS: ALB/GLOB RATIO 1.3 (1.0-2.1); ALBUMIN 4.4 g/dL (3.5-5.0); ALT/SGPT 30 U/L (9-52); AST/SGOT 22 U/L (14-36); BLOOD UREA NITROGEN 15 mg/dl (7-17); CALCIUM 9.4 mg/dL (8.4-10.2); GFR NON-AFRICAN AMERICAN > 60
--- NOTE | 2018-08-08 19:09 | RAD ---
Date of service: Note that 08/08/2018 PROCEDURE: Radiographs of the Sacrum and Coccyx HISTORY: fall COMPARISON: None available. TECHNIQUE: Frontal and lateral views of the sacrum and coccyx. 4 views obtained. FINDINGS: The study is limited with partial obscuration of the sacrum by overlying bowel related type artifact. BONES: No definitive radiographic evidence of acute displaced sacral or coccygeal fracture seen within limitation of the study. If symptoms persist or occult fracture suspected clinically consider follow-up CT scan of the sacrum and coccyx. Questionable incidental spina bifida occulta S1 segment SACROILIAC JOINTS: Unremarkable. OTHER FINDINGS: None. IMPRESSION: No definitive radiographic evidence of acute displaced fracture nor dislocation. If symptoms persist or occult fracture suspected clinically consider CT scan of the sacrum/coccyx.
[2018-08-08 19:19] VITALS: BP 122/62; PULSE 64; TEMP 97
--- NOTE | 2018-08-09 08:53 | CARD ---
APPROVED REPORT Date of service: 08/08/2018 EKG Measurement Heart [id number] <Conclusion> Normal sinus rhythm with sinus arrhythmia Nonspecific T wave abnormality Abnormal ECG
== END 2018-08-08 20:10 | disposition home or self-care (01) ==
LOC: H.ER 13:13
DX: E03.9 Hypothyroidism, unspecified (principal); E78.00 Pure hypercholesterolemia, unspecified; Z86.59 Personal history of other mental and behavioral disorders; G35 Multiple sclerosis; I10 Essential (primary) hypertension; I25.10 Atherosclerotic heart disease of native coronary artery without angina pectoris; J45.909 Unspecified asthma, uncomplicated; Z79.01 Long term (current) use of anticoagulants; Z86.73 Personal history of transient ischemic attack (TIA), and cerebral infarction without residual deficits; Z95.0 Presence of cardiac pacemaker; Z95.5 Presence of coronary angioplasty implant and graft; Z95.1 Presence of aortocoronary bypass graft; W18.39XA Other fall on same level, initial encounter; Z03.89 Encounter for observation for other suspected diseases and conditions ruled out